=== PATIENT | female | born 1945 | race Hispanic/Latino ===

== ENCOUNTER → 2022-08-22 | Outpatient (CLI) | payer MEDICAID, SELFPAY ==
[2022-08-22 12:35] LABS: Anion Gap 6 (5-15); BUN 19 mg/dL (7-18); BUN/Creat Ratio 12.7 RATIO (10-20); Chloride 106 mmol/L (98-107); EST Glomerular Filtration Rate 36 mL/min (>60); Est Glom Filt Rate - Afr Amer 44 mL/min (>60); Glucose 88 mg/dL (74-106); Potassium 4.2 mmol/L (3.5-5.1); Sodium Level 140 mmol/L (136-145)
[2022-08-22 13:38] LABS: AST(SGOT) 9 U/L (15-37); Alanine Aminotransfer ALT/SGPT 13 U/L (13-56); Albumin, Serum 3.6 g/dL (3.2-5.0); Alkaline Phosphatase 93 U/L (45-117); Bilirubin, Direct 0.14 mg/dL (0.00-0.30); Globulin 3.4 g/dL (2.2-4.2)
== END | disposition home or self-care (01) ==
DX: Z00.00 Encounter for general adult medical examination without abnormal findings (principal); M17.0 Bilateral primary osteoarthritis of knee
CPT/HCPCS: 36415; 80048; 80076

== ENCOUNTER 2022-09-11 17:00 | Outpatient (RCR) | payer MEDICAID, SELFPAY ==
--- NOTE | 2022-08-14 16:37 | HP.PTEVAL_ITS ---
Patient's Visit Information HILARY JIMENEZ is a 77 year old F referred to Physical Therapy by STEPHAN Lynch with a diagnosis of Bilateral Knee OA. Date of Evaluation: 08/14/22 Physical Therapist: Lisbet Vásquez DPT - Visit Plan Frequency: 2x /Week Duration: 4 Weeks Plan: Sri Lankan Speaking- Focus on LE ROM, strength and functional mobility. HEP Given IE: Quad set, SLR, heel slide, bolster extn stretch - Subjective Patient came with her son who translates- she went to see ortho and she is bone on bone on both knees with OA. She is better after the Meloxicam- which took away the swelling and pain. This has had knee pain for years but the last two have gotten worse. The left is worse than the right. Pain is located in the anterior knee and will radiate to the posterior portion. Does radiate a little ways but not all the way to the hip and ankle. She describes the pain in the knee as 4/10. The pain is sharp and it feels hot. She had injections in [facility] which only lasted 2-3 days. The pills have worked a lot better. She always has some pain. She is more sedentary due to her knee pain- she ambulates through the home. She is able to get up/down the stairs okay but has to use the rails. She uses the cane most of the time but will forget it every now and then. Sleep: it hurts sometimes at night- but is much better now. They have talked about knee replacement on both sides- she goes back Sep 16 to see the MD. PMHx/Meds: no changes since she saw ortho 07/30/22. - Objective Posture: FH, RS- unable to correct. Gait: antalgic- decreased weight bearing on the left LE- straight cane- slow ismael. Observation: varus of the right LE. SLS: weight shift only bilateral. HR/TR: able but does require UE A. ROM: Right: 30-90 degrees Left: 20-90 degrees. Strength: Ankle: 5/5, Knee: 4/5, Hip: 4-/5. Flex: HS: severe, Quad: severe - Balance/Special Test Scores Lower Extremity Functional Score: 29 - Goals Goal 1:: Patient will be I with HEP and progression Goal Time Frame: 4-6 Weeks Goal 2:: Patient will ambulate >300 feet with a normalized gait pattern Goal Time Frame: 4-6 Weeks Goal 3:: Patient will asc/desc 8 stairs recip with 1 HR Goal Time Frame: 4-6 Weeks Goal 4:: Patient will report 80% improvement Goal Time Frame: 4-6 Weeks - Rehabilitation Potential Physical Therapy Diagnosis: Patient presents with hypomobility- she has decreased LE ROM, LE and core strength/stabilization, flex, proprioception leading to abnormal gait and inability to perform ADL's. Rehabilitation Potential: Good - Anticipated Interventions Patient/Client Instruction: Educate patient on: Benefits of Fitness Program Therapeutic Exercise to Include: Strength training, Endurance training, Balance training, Coordination, Agility training, Body mechanics, Postural training, Flexibilty training, Gait and locomotor training, Neuromotor development, Dynamic Lumbar Stabilization, Scapular Strength/Stabilization For the Purpose of:: To improve muscle performance and motor function TENS: Yes Cryotherapy (ice pack, ice massage): Yes Thermo therapy (hot pack): Yes Ultrasound (thermal/non thermal): Yes Thank you for the opportunity to evaluate your patient. For Medicare and Medicare HMO plans, please review the plan of care and approve it. It will need to be FAXED BACK to us at [phone] for Medicare purposes. For Medicare only, by signing this I certify the plan of care. Please let me know if there are questions or concerns regarding this plan of care. Physician Signature: Date:
--- NOTE | 2022-09-11 17:22 | HP.PTDCSUM ---
It has been my pleasure to treat HILARY HUTCHINS referred by STEPHAN Lynch, with the diagnosis of Bilateral Knee OA for a total of 9 visit(s). Discharge Date: Please see the following information for a summary of their discharge status. Subjective: Son reports that she is moving more-she still has a lot of pains in the left leg- more on the anterior knee on the medial side of the knee. They go back to see Dr. Og on Thursday. She is able to stand longer and is walking instead of using the w/c. L knee Pain Intensity (Out of 10): 8 R knee Pain Intensity (Out of 10): 5 % Improvement: 80 Objective/Function: Posture: FH, RS- unable to correct. Gait: antalgic- decreased weight bearing on the left LE- straight cane- improved ismael. Observation: varus of the right LE. SLS: weight shift only bilateral. HR/TR: able but does require UE A. ROM: Right: 30-115 degrees Left: 20-90 degrees. Strength: Ankle: 5/5, Knee: 4+/5, Hip: 4/5. Flex: HS: severe, Quad: severe Goal 1:: Patient will be I with HEP and progression Goal Progress: Goal Met Goal 2:: Patient will ambulate >300 feet with a normalized gait pattern Goal Progress: Progressing Goal 3:: Patient will asc/desc 8 stairs recip with 1 HR Goal Progress: Progressing Goal 4:: Patient will report 80% improvement Goal Progress: Progressing Plan: 09/11: Discharge- return to MD for further evaluation. Austrian Speaking (son translates) - Focus on LE ROM, strength and functional mobility If there are questions or concerns regarding this patient's physical therapy, please feel free to call me at [phone]. Thank you for the referral of this patient. Sincerely, Lisbet Vásquez, DONNELLT Balance/Gait/Functional tests - Balance/Special Test Scores Lower Extremity Functional Score: 22
== END 2022-09-11 19:00 | disposition home or self-care (01) ==
LOC: PT 17:00
DX: M17.0 Bilateral primary osteoarthritis of knee (principal)
CPT/HCPCS: 97110; 97162; 97164

== ENCOUNTER → 2022-10-21 | Outpatient (CLI) | payer MEDICAID, SELFPAY ==
--- NOTE | 2022-10-21 16:44 | CT_ITS ---
EXAM: CT LEFT LOWER EXTREMITY WITHOUT INTRAVENOUS CONTRAST CLINICAL INDICATION: templating for left TKA TECHNIQUE: Helically acquired images were obtained of the left lower extremity without intravenous contrast. 2-D reformats were performed by the technologist. CTDIvol = ( 18.09 ) mGy, DLP = ( 1489.93 ) mGycm This CT exam was performed using one or more of the following dose reduction techniques: automated exposure control, adjustment of the mA and/or kV according to patient size, and/or use of iterative reconstruction technique. This report was created using [employer] report [employer] technology. COMPARISON: None. FINDINGS: BONES/JOINTS: Degenerative changes about the symphysis, SI joints, and left hip joint. Tricompartmental osteoarthrosis of the knee, worse/severe at the medial femorotibial compartment. No acute or healing fracture or malalignment. No unusual lytic or sclerotic lesions of bone. Small suprapatellar joint effusion of the knee. Prominent plantar and posterior calcaneal enthesophytes. No significant tibiotalar joint effusion. SOFT TISSUES: No unusual or suspicious soft tissue mass. No soft tissue swelling or gas. No radiopaque foreign body. CT/Extremity Lower without Contra IMPRESSION: 1. Preoperative planning study or left total knee arthroplasty. 2. No acute osseous abnormalities or malalignment. 3. Tricompartmental osteoarthrosis of the knee, worse/severe at the medial femorotibial compartment. 4. Ancillary findings as above. Electronically Signed: Ronald Watkins MD at 2:21 EST ,
== END | disposition home or self-care (01) ==
LOC: CT 16:42
PROVIDERS: Referring Provider Orthopaedic Surgery; Visit Provider Orthopaedic Surgery
DX: M17.10 Unilateral primary osteoarthritis, unspecified knee (principal)
CPT/HCPCS: 73700

== ENCOUNTER → 2022-11-12 | Outpatient (CLI) | payer MEDICAID, SELFPAY ==
[2022-11-12 13:25] LABS: Anion Gap 9 (5-15); BUN 26 mg/dL (7-18); BUN/Creat Ratio 20.2 RATIO (10-20); Calcium,Total 9.4 mg/dL (8.5-10.1); Chloride 103 mmol/L (98-107); Cholesterol 221 mg/dL (200); Creatinine, Serum 1.29 mg/dL (0.55-1.02); EST Glomerular Filtration Rate 43 mL/min (>60); Est Glom Filt Rate - Afr Amer 52 mL/min (>60); Glucose 88 mg/dL (74-106); High Density Lipoprotein 49 mg/dL; Potassium 4.2 mmol/L (3.5-5.1); Sodium Level 141 mmol/L (136-145); Triglycerides 159 mg/dL; Very Low Density Lipoprotein 32 mg/dL (5-40)
== END | disposition home or self-care (01) ==
LOC: MFPLAB 11:41
PROVIDERS: PCP Nurse Practitioner Family; Visit Provider Family Medicine
DX: Z01.818 Encounter for other preprocedural examination (principal); I10 Essential (primary) hypertension
CPT/HCPCS: 36415; 80048; 80061

== ENCOUNTER 2022-11-18 08:54 | Inpatient (IN) | payer MEDICAID, SELFPAY ==
--- NOTE | 2022-10-31 07:06 | EKG12_ITS ---
Test Reason : PRE-OP Blood Pressure : / mmHG Vent. Rate : 077 BPM Atrial Rate : 076 BPM P-R Int : 000 ms QRS Dur : 088 ms QT Int : 400 ms P-R-T Axes : 000 054 088 degrees QTc Int : 452 ms Sinus rhythm Nonspecific ST and T wave abnormality Abnormal ECG Confirmed by DARYL GONZALEZ, ROSA MARIA ([id number]), newspaper or periodical editor MAXIMILIAN PAULA ([id number]) on 11/03/2022 10:52:53 AM Referred By: Hugo Esquivel Confirmed By:CARLOS BRITO MD
[2022-10-31 09:02] LABS: Absolute Lymphocyte Count 1.73 X10^3/uL (0.83-4.51); Absolute Neutrophil Count 2.7 X10^3/uL (2.0-7.7); Basophil# 0.05 X10^3/uL; Basophil% 0.9 % (0-1); Eosinophil# 0.38 X10^3/uL; Eosinophils% 7.1 % (0-5); Hematocrit 40.7 % (37-47); Hemoglobin 13.1 g/dL (12.0-15.0); Lymphocyte # 1.73 X10^3/ul (0.83-4.51); Lymphocyte % 32.5 % (19-41); Mean Corp Hgb Conc 32.2 g/dL (32-36); Mean Corpuscular Hgb 29.4 pg (27.0-32.0); Mean Corpuscular Volume 91.5 fL (81-99); Mean Platelet Vol. 10.6 fl (6.2-12.0); Monocyte# 0.49 X10^3/uL; Monocyte% 9.2 % (0-10); NRBC Flagged by Analyzer 0 % (0-5); Neutrophil # 2.66 X10^3/uL (2.7-7.7); Neutrophil % 49.9 % (47-70); Platelet Count 233 K/mm3 (150-450); RBC Distribution Width CV 12.7 % (11.6-14.6); RBC Distribution Width SD 42.2 fl (35.1-43.9); Red Blood Count 4.45 M/mm3 (4.2-5.4); White Blood Count 5.3 K/mm3 (4.4-11.0)
[2022-10-31 09:35] LABS: Anion Gap 3 (5-15); BUN 29 mg/dL (7-18); BUN/Creat Ratio 21.5 RATIO (10-20); Calcium,Total 9.8 mg/dL (8.5-10.1); Chloride 105 mmol/L (98-107); Creatinine, Serum 1.35 mg/dL (0.55-1.02); EST Glomerular Filtration Rate 41 mL/min (>60); Est Glom Filt Rate - Afr Amer 49 mL/min (>60); Glucose 94 mg/dL (74-106); Magnesium 2.2 mg/dL (1.6-2.6); Potassium 3.8 mmol/L (3.5-5.1); Sodium Level 140 mmol/L (136-145)
[2022-10-31 09:36] LABS: Hemoglobin A1c 5.3 % (3.8-5.6)
[2022-10-31 09:38] LABS: Prothrombin Time (Protime)PT. 13.2 SECONDS (11.7-14.9)
[2022-10-31 09:39] LABS: Partial Thromboplast Time 33.3 Seconds (24.1-36.2)
[2022-11-01 10:22] LABS: Fructosamine 275 umol/L (0-285)
[2022-11-18] VITALS (11 sets, daily range): BP systolic 128–159; BP diastolic 68–93; PULSE 70–80; RESP 15–18; TEMP 35.8–36.6; O2SAT 100; BMI 19.2
[2022-11-18] MEDS: Gabapentin 600 MG Tablet PO (10:00)
[2022-11-18] MEDS: Celecoxib 200 MG Capsule 400 MG PO (10:00)
[2022-11-18] MEDS: Acetaminophen 500 MG Tablet 1000 MG PO (10:00)
[2022-11-18] MEDS: Scopolamine 1mg/72hr Patch 1 PATCH TD (10:00)
[2022-11-18 10:41] LABS: Bedside Glucose 84 mg/dL (74-106)
--- NOTE | 2022-11-18 11:16 | HP.PCM_ITS ---
History and Physical Date of Admission: 11/18/22 [facility] [address] [place] [address] OFFICE VISIT Date of Service:? 09/15/22 MR#: [id number] Acct: [id number] Name:HILARY WISDOM Rep #: [id number] : 1945 ? ? Provider: Dr. Hugo Esquivel, Age/Sex:? 77/F ? ? [place] [facility] [place] Status: Signed Intake Intake Visit Reasons:?BL Knees Chief Complaint: bilateral knee pain Allergies No Known Allergies Allergy (Unverified 07/30/22 14:17) Medications metformin 500 mg tablet 500 mg PO DAILY 07/25/22 [History Confirmed 09/15/22] valsartan 40 mg tablet 40 mg PO BID 07/30/22 [History Confirmed 09/15/22] PFSH Medical History? Hypertension Weight loss HPI BL Knees Details: Parts of this documentation were recorded by a scribe, this documentation accurately reflects the service provided and the decisions made by me, Dr. Hugo Esquivel, DO 09/15/22 1015. HILARY HUTCHINS is a 77 year old F here today for F/U on?bilateral knee pain. She speaks no Swiss and her son is serving as her conference interpreter and giving her his tory. She did complete PT for her BL knee pain which was helpful with the pain. Left knee is worse than the right knee. Denies any past surgery of the knees. She did have a left knee steroid injection over 1 year ago in [facility] which was not helpful at the time. She has increased knee pain over the anterior knees. She did have some pain relief from the Meloxicam but she was unable to keep taking this d/t her kidney function. She does use a cane for ambulation. Denies any hx of vascular or heart issues in the past. Denies any hx of ulcers or infection of the legs/feet. Ortho Exam General General: Yes no acute distress Neurologic: Yes alert and Yes oriented x3 Psychologic: Yes reasonable and appropriate Right Knee Patella Translation: 1 Left Knee Skin/Wound: Yes CDI, No ecchymosis, No erythema and No swelling Homans Sign: No Knee ROM: No ROM-Extension -20 to 0 (lacking 40) and No ROM-Flexion 0-140 (100) Examination: Yes med jt line tenderness Stability: NML: Anterior Drawer, NML: Posterior Drawer, NML: Valgus 30 and NML: Varus 30 Apprehension with Lateral Translation: No Patella Translation: 1 Patella Grind: Yes KNEE: 1/4 dorsalis pedis and 1/4 posterior tibial loss of hair from mid leg down 1inch scar lateral to patellar tendon no joint effusion Supplemental Info 07/30/2022 x-ray left knee: advanced medial knee arthrosis [id number] subchondral cystic changes joint space collapse and bone spurs moderate patellofemoral arthrosis 07/30/2022 x-ray right knee: Moderate to severe knee arthrosis worse medial compartment Coding Level of Care Code Off vis,est,level 3 Diagnoses Bilateral primary osteoarthritis of knee? M17.0 Assessment and Plan Assessment and Plan (1) Bilateral primary osteoarthritis of knee: ?Status:?Acute Plan Obtained X-rays of patient's left and right knee. Personally reviewed x-rays. There is no obvious fracture, dislocation, or lucency noted. Patient educated that she has osteoarthritis of the bilateral knees. Treatment options for arthritis of the knees are do nothing or bracing or steroid injection or viscosupplementation or TKA.?Risks, benefits and alternatives of surgery reviewed including but not limited to bleeding, infection, nerve, artery and/or tissue damage, fracture, VTE, mechanical feel of the knee, continued pain, stiffness and expected post-operative course. Increased risk to foot drop d/t her flexion contracture. Encouraged to gain as much ROM prior to surgery. Will need to check her A1C to assure this is ok and she will need medial clearance. She would need a CT scan prior to the surgery. Her son is translating for the patient as she doesn't speak Swiss. Recommended 2 night stay after surgery if this is approved by insurance. She will need to establish with a PCP so she can get medial clearance. Lisbet King CNP is listed on her insurance card as her PCP. Encouraged them to reach out to schedule a visit. She wishes to proceed with left TKA. She will have the IOVERA treatment if this is covered. Follow up 2 weeks post op or sooner if pain, swelling, numbness or associated symptoms, or concerns develop.? All questions answered. Patient in agreement of plan. plan for full admit November 04 2022.? She is 77 years old does have a communication barrier and is diabetic. 09/15/22 1617 <Electronically signed by Hugo Esquivel DO> Date Hugo Esquivel DO Cosigner Signature: Date (if applicable) ? CC: ? ~I have examined the patient and the H&P has been reviewed. There are no clinical changes since date of exam.
[2022-11-18] MEDS: Cefazolin 2 GM in 0.9% Normal Saline 100 ML IV (11:19)
[2022-11-18] MEDS: TXA 1000mg in NS100 100ml (IVPB at Incision) 660 MG IV (11:29)
--- NOTE | 2022-11-18 11:30 | KNEE_PTH ---
PATIENT: HILARY WATSON LOC: MS3 U#:[id number] AGE/SX: 77/F ROOM: CA305 RE11/18/[address]: Dr. Hugo Esquivel DO : 1945 BED: 1 DIS: 11/19/2022 SPEC #: [id number] RECD: 11/18/22 15:33 STATUS: EDUIN SUBRAMANIANJasiel #: [id number] REZA: 11/18/22 11:[address]: Hugo Esquivel DEPT: SURGICAL PATHOLOGY RECD BY: Glenn Godwin ENTERED: 11/19/22 08:14 SP TYPE: TOTAL KNEE OTHR DR: Dr. Johann Cannon, MD Lisbet King, LOAD HAUL DUMP OPERATOR-C Tissues: Knee, NOS Procedures: Decalcification bone/plaque Surgery Specimen Level IV HEADER OPERATION: ERAS, total knee replacement robotic arm assist PRE-OP DIAGNOSIS: Osteoarthritis of left knee TISSUE SUBMITTED: Left femoral and tibial bone MICROSCOPIC DIAGNOSIS Bone and tissue of left knee, total knee resection: Severe degenerative joint disease. AM:joaquin 11/24/2022 MICROSCOPIC DESCRIPTION Slides are reviewed. GROSS DESCRIPTION Received is one container designated left femoral and tibial bone. The specimen consists of multiple fragments of cruz-yellow bone measuring in aggregate 10 x 10 x 3 cm. No soft tissue is identified. A number of bony fragments contain articular surfaces consistent with tibial plateau and femoral condyle and displaying prominent osteophyte formation, eburnation, and bone erosion. Prevention Specialist sections are submitted in one cassette after decalcification. / SJ:joaquin 11/19/2022 TC:5 CPT: 10494, 74457
[2022-11-18] MEDS: dexAMETHasone 10 MG/ML Vial IV (11:35)
[2022-11-18] MEDS: TXA 1000mg in NS100 100ml (IVPB at Closure) 660 MG IV (11:54)
--- NOTE | 2022-11-18 14:00 | RAD_ITS ---
STUDY: X-RAY - LEFT KNEE REASON FOR EXAM: Female, 77 years old. Post op -- AP and Lateral xray of operative knee in PACU TECHNIQUE: 2 view(s) of the knee. COMPARISON: Comparison is made with prior study dated 07/30/2022. FINDINGS: Normal visualized distal femur. Normal visualized proximal tibia and fibula. Normal proximal tibiofibular articulation. The patient is status post total knee replacement. There is good alignment. Postoperative soft tissue changes. RAD/Knee 1 or 2 Views IMPRESSION: Status post total knee replacement. There is good alignment. Postoperative soft tissue changes. Electronically Signed: Som Artis MD at 15:26 EST ,
--- NOTE | 2022-11-18 14:03 | PCM.OP.BLANK ---
Operative Report Date of Procedure: 11/18/22 Preoperative diagnosis: Left knee DJD Postoperative diagnosis: Same Procedure: Left total knee arthroplasty CT guided Robotic Assisted Implant: Theodora triathlon cemented, femoral component size 3, tibial baseplate size 3, asymmetric patella size 32, polyethylene X3 size 9 CS Anesthesia: Spinal with adductor canal block Tourniquet time:32 Minutes total it was up until femoral array was placed and then let down and then was reinflated during cementing at 275 mmHg Complications: None Condition: Stable to PACU Estimated blood loss: 200 cc Indication for procedure: This is a 77-year-old female with long standing degenerative joint disease of the knee with severe flexion contracture of 30 degrees who has failed conservative treatment and wished to proceed with elective total knee arthroplasty. Risk benefits and alternatives were reviewed including; risk of bleeding, infection, nerve artery and tissue damage, continued pain, postoperative stiffness, venous thromboembolism, need for postoperative rehabilitation, mechanical feel to the knee, and expected postoperative course. The pre- operative CT and templating was performed with component sizing. Procedure: The patient was met in the preoperative holding area. The operative extremity was identified by both patient and physician and was marked. Patient was met by anesthesia. An adductor canal block was placed by anesthesia postoperatively the patient was brought back to the operating room on a wheeled cart and transferred to the operating table in the supine position. Anesthesia was started. A well-padded tourniquet was placed on the operative extremity. The patient was prepped and draped in the usual sterile fashion. A timeout was called to ensure the proper patient procedure and extremity were being contemplated. An esmarch was used to exsanguinate the extremity. The tourniquet was inflated. A 10 blade scalpel was used to make a midline incision down through the skin and subcutaneous tissue. Skin retractors placed. Bovie and Aquamantis were used to perform meticulous hemostasis. full-thickness flaps were elevated medial and lateral along the joint capsule. A deep blade scalpel was used to perform a medial parapatellar arthrotomy. The knee was brought to full extension. A bovie was used to release the soft tissues off the most proximal aspect of the medial tibial plateau, a three-quarter inch curved osteotome was also used in this process. The infrapatellar fat pad was excised. The suprapatellar fat pad was excised partially anteriorolateraly and portion the anterioromedial pad was elevated from the femur. At this point our intra-articular femoral array was placed at a 45 degree angle proximal and posterior to the medial epicondyle. femoral checkpoint was placed at this time. Our tibial array was placed greater than 1 hands breath below the incision at a 20 degree angle stab incisions were made with a 15 blade scalpel and pins were placed and attached to the tibial array , tibial checkpoint was placed in the proximal tibial metaphysis. Tourniquet was let down. At this point registration ruvalcaba were taken throughout the knee . Once the knee was registered we then tensioned the medial and lateral ligaments in extension and 90 degrees of flexion. We then used these numbers to adjust our components within parameters to balance the knee in both flexion and extension once this was done on our monitor we then proceeded with using the robotic arm to make our tibial plateau cut, anterior and posterior chamfer and distal femur cuts. we removed the cut fragments with the use of a bovie and Nehemias, we did use a lamina enrobing machine feeder to insure we visualized and removed all posterior osteophytes and at this time also used the Aquamantis on the posterior joint capsule. we then trialed and achieved the desired plan with a well-balanced knee. we used the green probe to traci the corresponding tibial rotation based on our CT template. Lug holes were drilled in the femur the tibia preparation was completed with the appropriate sized base plate pinned based on previous rotation traci. An appropriate sized fin punch was used on the tibia and the patella was prepared by first using a caliper to ensure sufficient bone stock and a patellar reamer to remove the desired amount of bone. lug holes drilled for an asymmetric poly. We then brought the knee through range of motion with excellent patellar tracking. We thoroughly irrigated the knee. Trial components were removed a posterior capsular injection was preformed with our standard cocktail. In addition the aqua Mantis was also used to aid in hemostasis. Betadine rinse was allowed to sit and washed out completely. Components were cemented into place excess cement was removed with G[place]neur elevator. Aricept rinse was then used followed by several more liters of irrigation after it was allowed to sit. The joint capsule was closed with #1 Ethibond [id number] followed by Vicryl in the subcutaneous tissues with aaron in the skin. Arrays and checkpoints were removed prior to closure all counts were correct stab incisions were closed with a staple standard dressing in the form of Mepilex AG for the main incision and a small Mepilex over the pin holes. Thigh-high ROSALES hose applied over top of dressing. Patient tolerated the procedure well and was directed to PACU in stable condition . There were no intraoperative complications.
[2022-11-18 15:21] LABS: Bedside Glucose 121 mg/dL (74-106)
[2022-11-18] MEDS: Lactated Ringers 1,000 ML 125 ML IV (15:24)
--- NOTE | 2022-11-18 16:13 | CON.PCM.HO_ITS ---
Assessment & Plan Assessment/Plan (1) Osteoarthritis of left knee: (2) HTN (hypertension): PLAN: Plan #Osteoarthritis s/p left knee arthroplasty * today is POD 1 * management as per primary team orthopedics * PT.OT consult * fall precautions * incentive spirometry * #Chest pain * patient complaining of chest pain during review. Chest pain was right sided, and nonradiating. * she described it as pressure like, and said it wasnt reproducible with palpation * will get EKG and cycle troponin to ensure this is noncardiac. * #Hypertension; on valsartan #Type 2 diabetes mellitus: on metformin. ISS. Acucchecks ACHS DVT prophylaxis: as per primary team, on eliquis. Thank you for the courtesy of the consult,. We will continue to follow with you. HPI Consult Data Date of Consult: 11/18/22 HPI Narrative Reason for Consultation: medical management HPI Narrative: HILARY GELLER, is a 77 F with a past medical history as outlined was admitted to the service of orthopedics for knee replacement. 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 She had left knee CT-guided robotic assisted arthroplasty today. Today's postop day 0. Hospitalist service was consulted for medical management. Patient seen and examined. She was lying comfortably in bed. Pain was well controlled. She did complain of some nausea and retching but no vomiting. She denied any fever, chills, cough or any other symptoms. She did complain of some pain in the right side of her chest which was not pressure like and nonpleuritic. She denied any shortness of breath of breath. Pain was not reproducible with palpation. She denied any fever, any chills, any nausea vomiting or diarrhea. Review of systems otherwise negative. [facility] Medical History (Updated 11/18/22 @ 16:[address] Lindsey Mccullough MD) Diabetes Edema Hypertension Non-smoker Pain Wears glasses Wears partial dentures Weight loss Home Medications metformin 500 mg tablet 500 mg PO DAILY DIABETES 07/25/22 [History Last Taken 11/17/22 09:30] valsartan 40 mg tablet 40 mg PO DAILY BP 07/30/22 [History Last Taken 11/17/22 09:30] Allergy/AdvReac Type Severity Reaction Status Date / Time No Known Allergies Allergy Verified 11/18/22 10:17 Surgical History (Updated 10/30/22 @ 10:58 by Annie Thompson) Hx of left cataract extraction Hx of right cataract extraction Social History Smoking Status: Never smoker ROS Constitutional Constitutional: Denies chills, fatigue, fever(s), malaise or weakness Eyes Eyes: Denies change in vision ENT HEENT: Denies dysphagia, headache(s) or sore throat Cardiovascular Cardiovascular: Reports chest pain; Denies dyspnea on exertion, edema, lightheadedness, orthopnea, palpitations, rapid heart rate or syncope Respiratory/Chest Respiratory/Chest: Denies cough, productive cough or shortness of breath at rest Gastrointestinal Gastrointestinal: Denies abdominal pain, constipation, diarrhea, melena, nausea or vomiting Genitourinary Genitourinary: Denies burning urination or dysuria Musculoskeletal Musculoskeletal: Reports joint pain; Denies arthralgias Neurologic Neurologic: Denies confusion, dizziness, focal weakness, seizures or syncope Psychiatric Psychiatric: Denies anxiety or depression Hematologic/Lymphatic Hematologic/Lymphatic: Denies anemia Physical Exam Const alert, oriented x3 and no apparent distress General Appearance: cooperative HEENT normocephalic, head/scalp atraumatic, hearing grossly normal bilaterally and moist oral mucous membranes Mouth: oral and palatal mucosa normal Eyes PERRL and EOMs intact bilaterally Neck no lymphadenopathy, supple and no JVD Resp normal respiratory effort, no retractions and no use of accessory muscles Cardio regular rate, regular rhythm, S1 normal heart sound, S2 normal heart sound and no murmurs GI normal to inspection, nondistended, normoactive bowel sounds, soft to palpation and non-tender Extremity Extremity Narrative: left knee wrapped has intact dressing. Neuro oriented x3, CN's II-XII intact bilaterally, moves all extremities and no focal motor deficits Sensorium / Orientation: awake and alert Motor Exam: strength 5/5 throughout Psych affect normal Lab / Micro Data Result Diagrams: 10/31/22 07:36 10/31/22 07:36 Labs: Laboratory Results - last 24 hr 11/18/22 09:45: Blood Type A POSITIVE, Antibody Screen NEGATIVE 11/18/22 09:49: POC Glucose 84 11/18/22 15:03: POC Glucose 121 H Radiology Impression Knee X-Ray 01/24/23 14:00 IMPRESSION: Status post total knee replacement. There is good alignment. Postoperative soft tissue changes. Electronically Signed: Som Artis MD at 15:26 EST , Charges/Coding Visit Charges Office Visits / Consults: [id number] IP Consult L4
[2022-11-18] MEDS: Ondansetron 4 MG/2 ML Vial IV (16:23)
[2022-11-18] MEDS: Cefazolin 1 GM/50 ML BAG IV ×2 (16:33→22:48)
[2022-11-18 17:30] LABS: Bedside Glucose 166 mg/dL (74-106)
--- NOTE | 2022-11-18 18:39 | EKG12_ITS ---
Test Reason : CHEST PAIN Blood Pressure : / mmHG Vent. Rate : 077 BPM Atrial Rate : 077 BPM P-R Int : 188 ms QRS Dur : 088 ms QT Int : 408 ms P-R-T Axes : 043 037 075 degrees QTc Int : 461 ms Normal sinus rhythm Normal ECG When compared with ECG of 31-OCT-2022 07:24, No significant change was found Confirmed by JACKELIN GONZALEZ, YOJANA ([id number]), features editor MAXIMILIAN PAULA ([id number]) on 11/19/2022 12:58:02 PM Referred By: Hugo Esquivel Confirmed By:YOJANA BENÍTEZ MD
[2022-11-18 21:00] LABS: Troponin-I HS 5 pg/mL (3.0-54.0)
[2022-11-18] MEDS: proMETHazine 25 MG/ML Syringe 12.5 MG IM (21:55)
[2022-11-18 22:57] LABS: Troponin-I HS 4 pg/mL (3.0-54.0)
[2022-11-18 23:20] LABS: Bedside Glucose 149 mg/dL (74-106)
[2022-11-19 02:37] LABS: Hematocrit 33.1 % (37-47); Hemoglobin 10.3 g/dL (12.0-15.0); Mean Corp Hgb Conc 31.1 g/dL (32-36); Mean Corpuscular Hgb 28.9 pg (27.0-32.0); Mean Corpuscular Volume 92.7 fL (81-99); Mean Platelet Vol. 11.2 fl (6.2-12.0); Platelet Count 153 K/mm3 (150-450); RBC Distribution Width CV 13.2 % (11.6-14.6); RBC Distribution Width SD 45.1 fl (35.1-43.9); Red Blood Count 3.57 M/mm3 (4.2-5.4); White Blood Count 8.2 K/mm3 (4.4-11.0)
[2022-11-19 03:00] VITALS: BP 113/65; PULSE 57; RESP 18; TEMP 35.8; O2SAT 100
[2022-11-19 03:10] LABS: Troponin-I HS 5 pg/mL (3.0-54.0)
[2022-11-19 03:21] LABS: Anion Gap 9 (5-15); BUN 19 mg/dL (7-18); BUN/Creat Ratio 13.7 RATIO (10-20); Chloride 104 mmol/L (98-107); Creatinine, Serum 1.39 mg/dL (0.55-1.02); EST Glomerular Filtration Rate 39 mL/min (>60); Est Glom Filt Rate - Afr Amer 48 mL/min (>60); Estimated Creatinine Clearance 28.93 ml/min; Glucose 136 mg/dL (74-106); Potassium 5.1 mmol/L (3.5-5.1); Sodium Level 139 mmol/L (136-145)
[2022-11-19 04:36] LABS: Bedside Glucose 122 mg/dL (74-106)
[2022-11-19] MEDS: Acetaminophen 500 MG Tablet 1000 MG PO ×2 (06:31→13:33)
[2022-11-19] MEDS: Cefazolin 1 GM/50 ML BAG IV (06:31)
[2022-11-19] MEDS: APIXABAN 2.5 MG TABLET (WCH) PO (06:31)
[2022-11-19 08:29] VITALS: BP 121/53; PULSE 66; RESP 18; TEMP 36.4; O2SAT 100
[2022-11-19] MEDS: metFORMIN HCl 500 MG Tablet PO (08:51)
[2022-11-19] MEDS: oxyCODONE 5 MG Tablet PO (08:51)
[2022-11-19] MEDS: Senna/Docusate Sodium 1 Tablet 2 TABLET PO (08:51)
[2022-11-19] MEDS: Losartan Potassium 25 MG Tablet PO (08:51)
--- NOTE | 2022-11-19 10:28 | CASEMGMT ---
Addendum entered by Vonnie Farooq 11/19/22 12:12: TC to [facility] Retail pharmacy, spoke with Andrew, there is a zero copay for guevara. Original Note: VERNON FREEMAN Assessment: Face to Face with pt for initial transition planning/care coordination assessment. VERNON FREEMAN introduced self and role at [facility], pt voices understanding and consents to assessment. Pt son translated information to patient or answered demographic info. Care providers, pharmacy, and demographics verified/updated. Admitting Dx: Left total knee robotic PCP:Lisbet King HOSPICE CLINICAL MARKETER Specialists:dale Esquivel Preferred Pharmacy: [facility] Insurance: [facility] Prescription Benefit: yes LNOK: Rahul Dwyer, son Living Arrangements: Pt lives with son, dil and grandchildren in a single story home with 2 steps to enter without a rail. Pt son reports pt is I in ADL's. Transportation: Pt son provides transportation for pt. DME/HHC/SNF: Pt has a cane, w/c, standard walker and ice machine at home. Pt has no hx of HHC or SNF stays. Pt son states no concerns with going home at time of dc. Pt has outpt therapy set up for 11/21 at [facility]. Pt son states no further concerns/needs. CM to follow. Advised pt and son to ask CM if any further question/concerns/needs arise, voices understanding. Pt Goal: Home with outpt therapy set up Plan: Home with outpt therapy set up
[2022-11-19 11:02] VITALS: O2SAT 99
--- NOTE | 2022-11-19 11:44 | PN.ORTHO_ITS ---
Subjective Subjective Patient seen and examined with son at bedside who translates for her, she is doing well her pain is controlled she denies chest pain nausea or vomiting today she admits to some light dizziness she is requesting to go home son also would like to bring her home today if at all possible. She ambulated well with physi charan therapy and no other concerns Objective Data Objective Data Vital Signs: Vital Signs Temp Pulse Resp BP Pulse Ox O2 Del Method O2 Flow Rate 97.5 F L 66 18 121/53 H 100 Room Air 2 11/19/22 08:29 11/19/22 08:29 11/19/22 08:29 11/19/22 08:29 11/19/22 08:29 11/19/22 08:35 11/19/22 03:00 Oxygen Flow Rate (L/min) 2 Oxygen Delivery Method Room Air Weight: 115 lb 8.356 oz Body Mass Index (BMI) 19.2 Intake & Output: Intake and Output for Last 24 Hours 11/17/22 11/18/22 11/19/22 23:59 23:59 23:59 Intake Total 1682 / 1682 50 / 50 Balance 1682 / 1682 50 / 50 Lab / Micro Data Result Diagrams: 11/19/22 02:25 11/19/22 02:25 Labs: Laboratory Results - last 24 hr 11/18/22 15:03: POC Glucose 121 H 11/18/22 17:11: POC Glucose 166 H 11/18/22 20:00: Troponin I High Sens 5 11/18/22 21:37: POC Glucose 149 H 11/18/22 22:20: Troponin I High Sens 4 11/19/22 02:25: WBC 8.2, RBC 3.57 L, Hgb 10.3 L, Hct 33.1 L, MCV 92.7, MCH 28.9, MCHC 31.1 L, RDW Std Deviation 45.1 H, RDW Coeff of Floyd 13.2, Plt Count 153, MPV 11.2 11/19/22 02:25: Sodium 139, Potassium 5.1, Chloride 104, Carbon Dioxide 26.0, Anion Gap 9, BUN 19 H, Creatinine 1.39 H, Estim Creat Clear Calc 28.93, Est GFR (MDRD) Af Amer 48 L, Est GFR (MDRD) Non-Af 39 L, BUN/Creatinine Ratio 13.7, Gluc ose 136 H, Calcium 9.0 11/19/22 02:25: Troponin I High Sens 5 11/19/22 04:01: POC Glucose 122 H Micro: Microbiology 10/31/22 07:36 Swab (Method) Nasal Screen MRSA/MSSA - Final Radiography Diagnostic Testing: Radiology Impression Knee X-Ray 11/18/22 14:00 IMPRESSION: Status post total knee replacement. There is good alignment. Postoperative soft tissue changes. Electronically Signed: Som Artis MD at 15:26 EST , Physical Exam Const alert, oriented x3 and no apparent distress Extremity Extremity Narrative: Left knee dressings clean dry and intact mild drainage on inferior dressing but still sealed compartments soft neurovascular intact EHL tibialis anterior g astrocsoleus intact sensation light touch palpable pedal pulse Assessment & Plan Assessment/Plan (1) S/P total knee arthroplasty: PLAN: Plan Postop day #1 left total knee arthroplasty patient is doing well pain controlled wishes to be discharged home set up for outpatient physical therapy on Thursday. DC planning home
--- NOTE | 2022-11-19 11:47 | DCINST_ITS ---
Discharge Instructions Activity Weight Bearing Status: Full weight bearing Dressing / Incision Call your doctor if you observe: Shortness of breath and Chest pain Additional Dressing/Incision Instructions:: Ice and elevate lower extremities 2 weeks while not ambulating. Ambulation is encouraged. Weight bearing as tolerated. Use assistive devise for stability. Encourage FULL knee extension and flexion 1 time EVERY time you get up and down and MULTIPLE times per day. No showering 72 hours after surgery. Begin showering postop day #3. Remove the dressing prior to shower and gently wash with warm water and antibacterial soap then pat dry and place abdominal pad (or plain gauze) and ROSALES hose over top. This is to be done daily. Do not submerge for 3 weeks. If not showering daily after the initial 72 hours then you must clean incision and change dressing daily. Do not allow animals near the incision area. Keep clean. Follow anti- coagulation recommendations as prescribed. Do not take any NSAIDs while on blood thinner. Do not take any additional narcotic pain medication other than what was prescribed on your surgery day without discussing with physician. Narcotic medication can be addictive. Do not drink alcohol while taking narc otics. Supplement narcotic prescription with acetaminophen 1000 mg 4 times a day. Start physical therapy. If you are not currently scheduled for physical therapy or you are unsure of appointment time please call office [facility] to arrange. Call Dr. Esquivel with any concerns. Follow Up Care Please Follow Up With: Hugo Esquivel DO When: 2 weeks Test Results: Test results from this visit will be discussed in further detail at your follow- up appointment, if applicable. Discharge Plan Admission Admit Date/Time: 11/18/22 08:54 Primary Reason for Your Visit: Left total knee arthroplasty Attending Provider: Hugo Esquivel Primary Care Provider: Lisbet King NP Consulting Providers: Johann Cannon Discharge Orders/Prescriptions Prescriptions: New acetaminophen [acetaminophen] 500 mg tablet 1,000 mg PO Q6H PRN Qty: 100 0RF Eliquis 2.5 mg tablet 2.5 mg PO BID Qty: 30 0RF oxycodone 5 mg tablet 5 - 10 mg PO Q4H PRN (Reason: pain) 5 Days Qty: 60 0RF Continued metformin 500 mg tablet 500 mg PO DAILY valsartan 40 mg tablet 40 mg PO DAILY Referrals / Follow Up: Fernando,Lisbet ASSISTED LIVING CARE MANAGER, ASSISTED LIVING CARE MANAGER-C [Primary Care Provider] - Disposition Disposition (needs filled in before D/C Order can be placed): Home, Self Care
--- NOTE | 2022-11-19 11:51 | PCM.DC.SUM ---
Providers Date of Admission: 11/18/22 Primary Care Physician: JOE Espinal Consultations 11/18/22 14:07 Consult: Hospitalist Routine Consulting Provider: Lindsey Mccullough Reason for Consult: Comanagement /medical management sugar control EMERGENT Consult: No MD Notified: Yes Date Notified: 11/18/22 Time Notified: 16:12 Method of Notification: Text Reason For Visit: LEFT TOTAL KNEE ROBOTIC Diagnosis Discharge Diagnosis (1) S/P total knee arthroplasty: Status: Acute Code(s): Z96.659 - Presence of unspecified artificial knee joint Plan Postop day #1 left total knee arthroplasty patient is doing well pain controlled wishes to be discharged home set up for outpatient physical therapy on Thursday. 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 Patient underwent the aformentioned procedure on the admission date without any intraoperative complications. Patient did receive pre-and postoperative antibiotics which were discontinued within 23 hours postoperatively. Patient did receive [spinal anesthesia as well as an adductor canal block postoperatively]. pain was controlled with IV and transition to p.o. pain medication Patient will be discharged home with oxycodone and will continue Tylenol as well. Patient had minimal intraoperative blood loss and 2gm tranexamic acid was administered there was no need for postoperative blood transfusion Patients vital signs remained stable. Patient was started on both mechanical and chemical DVT per prophylaxis postoperatively in the form of SCDs ROSALES hose and [Eliquis 2.5 mg twice daily for which she will continue for 2 additional weeks post hospital discharge]. thigh high rosales hose placed over top of the meplix silver dressing. This should be removed 72 hrs post operatively and showering begun daily at that time with warm water and antibacterial soap. not to submerge for 3 weeks. Patient had nausea on postop day #0 which resolved on postop day #1 she also had mild chest discomfort on postop day #0 which resolved on postop day #1 and had negative cardiac enzymes , patient and son both requesting to be discharged home on postop day #1 , dressing to be remain intact undisturbed for 72 hours then patient to change dressing daily after first dressing change. Patient will follow-up in the office in 2 weeks. No intrahospital complications. Weight / BMI Weight Weight: 115 lb 8.356 oz Body Mass Index (BMI) 19.2 ABG / Lab / Microbiology Data Result Diagrams: 11/19/22 02:25 11/19/22 02:25 Laboratory: Laboratory Results - last 24 hr 11/18/22 15:03: POC Glucose 121 H 11/18/22 17:11: POC Glucose 166 H 11/18/22 20:00: Troponin I High Sens 5 11/18/22 21:37: POC Glucose 149 H 11/18/22 22:20: Troponin I High Sens 4 11/19/22 02:25: WBC 8.2, RBC 3.57 L, Hgb 10.3 L, Hct 33.1 L, MCV 92.7, MCH 28.9, MCHC 31.1 L, RDW Std Deviation 45.1 H, RDW Coeff of Floyd 13.2, Plt Count 153, MPV 11.2 11/19/22 02:25: Sodium 139, Potassium 5.1, Chloride 104, Carbon Dioxide 26.0, Anion Gap 9, BUN 19 H, Creatinine 1.39 H, Estim Creat Clear Calc 28.93, Est GFR (MDRD) Af Amer 48 L, Est GFR (MDRD) Non-Af 39 L, BUN/Creatinine Ratio 13.7, Glucose 136 H, Calcium 9.0 11/19/22 02:25: Troponin I High Sens 5 11/19/22 04:01: POC Glucose 122 H Microbiology: Microbiology 10/31/22 07:36 Swab (Method) Nasal Screen MRSA/MSSA - Final Radiography Diagnostic Testing: Radiology Impression Knee X-Ray 11/18/22 14:00 IMPRESSION: Status post total knee replacement. There is good alignment. Postoperative soft tissue changes. Electronically Signed: Som Artis MD at 15:26 EST , D/C Instructions Weight Bearing Status: Full weight bearing Call your doctor if you observe: Shortness of breath and Chest pain Additional Dressing/Incision Instructions: Ice and elevate lower extremities 2 weeks while not ambulating. Ambulation is encouraged. Weight bearing as tolerated. Use assistive devise for stability. Encourage FULL knee extension and flexion 1 time EVERY time you get up and down and MULTIPLE times per day. No showering 72 hours after surgery. Begin showering postop day #3. Remove the dressing prior to shower and gently wash with warm water and antibacterial soap then pat dry and place abdominal pad (or plain gauze) and ROSALES hose over top. This is to be done daily. Do not submerge for 3 weeks. If not showering daily after the initial 72 hours then you must clean incision and change dressing daily. Do not allow animals near the incision area. Keep clean. Follow anti-coagulation recommendations as prescribed. Do not take any NSAIDs while on blood thinner. Do not take any additional narcotic pain medication other than what was prescribed on your surgery day without discussing with physician. Narcotic medication can be addictive. Do not drink alcohol while taking narcotics. Supplement narcotic prescription with acetaminophen 1000 mg 4 times a day. Start physical therapy. If you are not currently scheduled for physical therapy or you are unsure of appointment time please call office [facility] to arrange. Call Dr. Esquivel with any concerns. Please Follow Up With: Hugo Esquivel DO When: 2 weeks Meaningful Use Info Meaningful Use Diagnoses (Choose all that apply): None applicable Discharge Plan Admission Admit Date/Time: 11/18/22 08:54 Primary Reason for Your Visit: Left total knee arthroplasty Attending Provider: Hugo Esquivel Primary Care Provider: Lisbet King NP Consulting Providers: Johann Cannon Discharge Orders/Prescriptions Prescriptions: New acetaminophen [acetaminophen] 500 mg tablet 1,000 mg PO Q6H PRN Qty: 100 0RF Eliquis 2.5 mg tablet 2.5 mg PO BID Qty: 30 0RF oxycodone 5 mg tablet 5 - 10 mg PO Q4H PRN (Reason: pain) 5 Days Qty: 60 0RF Continued metformin 500 mg tablet 500 mg PO DAILY valsartan 40 mg tablet 40 mg PO DAILY Referrals / Follow Up: Lisbet King TAXATION CONSULTANT, TAXATION CONSULTANT-C [Primary Care Provider] - Disposition Disposition (needs filled in before D/C Order can be placed): Home, Self Care
[2022-11-19 12:15] LABS: Bedside Glucose 97 mg/dL (74-106)
--- NOTE | 2022-11-19 13:02 | PCM.PN.HOSP ---
Subjective Subjective Patient complain of right-sided chest pain nonradiating. Had left knee arthroplasty on 11/18 Objective Data Objective Data Vital Signs: Vital Signs Temp Pulse Resp BP Pulse Ox O2 Del Method O2 Flow Rate 97.5 F L 66 18 121/53 H 99 Room Air 2 11/19/22 08:29 11/19/22 08:29 11/19/22 08:29 11/19/22 08:29 11/19/22 11:02 11/19/22 11:02 11/19/22 03:00 Oxygen Flow Rate (L/min) 2 Oxygen Delivery Method Room Air Weight: 115 lb 8.356 oz Body Mass Index (BMI) 19.2 Intake & Output: Intake and Output for Last 24 Hours 11/17/22 11/18/22 11/19/22 23:59 23:59 23:59 Intake Total 1682 / 1682 50 / 50 Balance 1682 / 1682 50 / 50 Lab / Micro Data Result Diagrams: 11/19/22 02:25 11/19/22 02:25 Labs: Laboratory Results - last 24 hr 11/18/22 15:03: POC Glucose 121 H 11/18/22 17:11: POC Glucose 166 H 11/18/22 20:00: Troponin I High Sens 5 11/18/22 21:37: POC Glucose 149 H 11/18/22 22:20: Troponin I High Sens 4 11/19/22 02:25: WBC 8.2, RBC 3.57 L, Hgb 10.3 L, Hct 33.1 L, MCV 92.7, MCH 28.9, MCHC 31.1 L, RDW Std Deviation 45.1 H, RDW Coeff of Floyd 13.2, Plt Count 153, MPV 11.2 11/19/22 02:25: Sodium 139, Potassium 5.1, Chloride 104, Carbon Dioxide 26.0, Anion Gap 9, BUN 19 H, Creatinine 1.39 H, Estim Creat Clear Calc 28.93, Est GFR (MDRD) Af Amer 48 L, Est GFR (MDRD) Non-Af 39 L, BUN/Creatinine Ratio 13.7, Glucose 136 H, Calcium 9.0 11/19/22 02:25: Troponin I High Sens 5 11/19/22 04:01: POC Glucose 122 H 11/19/22 11:55: POC Glucose 97 Micro: Microbiology 10/31/22 07:36 Swab (Method) Nasal Screen MRSA/MSSA - Final Radiography Diagnostic Testing: Radiology Impression Knee X-Ray 11/18/22 14:00 IMPRESSION: Status post total knee replacement. There is good alignment. Postoperative soft tissue changes. Electronically Signed: Som Artis MD at 15:26 EST , Physical Exam Narrative Seen and examined. Patient does not have chest pain or shortness of breath. 3 serial troponins are negative. Chest pain was more right-sided. Physical exam General: Alert, Oriented x3, Cooperative HEENT: Atraumatic, PERRLA, EOMI, Normocephalic Oral: Oral mucosa moist. No Gingival or Mucosal Lesions/ Ulcerations Neck: Supple, No JVD, Negative Carotid Bruits Lungs: Air entry equal in bilateral lung bases. No crepitation/rhonchi Cardiovascular: Regular rate, Regular Rhythm, Normal S1, Normal S2, No murmurs Abdomen: Bowel Sounds Present, Soft, Non Tender, Non-Distended : No renal angle tenderness. No suprapubic tenderness. Extremities: No edema, Capillary Refill Less than 3 Seconds Skin: No rashes, No breakdown Musculoskeletal: No Tenderness to Palpation of Joints or Extremities Neurological: Cranial nerves II-XII grossly intact, DTR 2+/4 and Symmetrical, Neuro grossly intact Psych/Mental Status: Normal Affect, Appropriate. Assessment & Plan Assessment/Plan (1) Osteoarthritis of left knee: (2) HTN (hypertension): PLAN: Plan This is a 27-year-old lady admitted for elective left knee arthroplasty. The patient had chronic left knee degenerative joint disease and had CT-guided robotic assisted left total knee arthroplasty. 1. Chronic left knee DJD status post robotic assisted left knee arthroplasty. Patient has surgical dressing and ice bag. PT and OT ordered. Pain control. Continue incentive spirometry. Labs reviewed. Hemoglobin 10.3, decreased from 13.1 on 10/31. Mild acute blood loss anemia. 2. Atypical right-sided chest pain: Chest pain was right-sided, nonreproducible. 3 serial troponins are negative. Noncardiac chest pain probably due to positional musculoskeletal. 3. #Hypertension; on valsartan CKD stage 3B: Creatinine 1.39 slightly elevated from baseline Which is around 1.3. In the past also patient creatinine went up to 1.5 in July 2022. #Type 2 diabetes mellitus: on metformin. ISS. Kalia GIRALDOS. Glucose is appropriately controlled. DVT prophylaxis: as per primary team, on eliquis. Patient is medically stable for discharge. Charges/Coding Visit Charges Inpatient E&M: 71038 Subs Hosp L2
[2022-11-19 15:08] VITALS: BP 139/62; PULSE 72; RESP 18; TEMP 36.6; O2SAT 100
--- NOTE | 2022-11-19 15:39 | PHA.DC.MR ---
Pharmacy Service has performed discharge medication reconciliation for this patient. The patient's discharge medication list was reviewed for discrepancies and discrepancies were resolved. Home Medications metformin 500 mg tablet 500 mg PO DAILY DIABETES 07/25/22 valsartan 40 mg tablet 40 mg PO DAILY BP 07/30/22 acetaminophen 500 mg tablet 1,000 mg PO Q6H PRN #100 tabs 11/19/22 apixaban 2.5 mg tablet (Eliquis) 2.5 mg PO BID #30 tabs 11/19/22 oxycodone 5 mg tablet 5 - 10 mg PO Q4H PRN pain 5 days #60 tabs 11/19/22
[2022-11-19 16:51] LABS: Bedside Glucose 96 mg/dL (74-106)
== END 2022-11-19 17:54 | disposition home or self-care (01) | DRG 326 ==
LOC: ACINP 08:56 → MS3 15:12
PROVIDERS: Anesthesiology; Student in an Organized Health Care Education/Training Program; Admitting Provider Orthopaedic Surgery; PCP Nurse Practitioner Family; Referring Provider Orthopaedic Surgery; Visit Provider Orthopaedic Surgery
PROC: 0SRD0JZ Replacement of Left Knee Joint with Synthetic Substitute, Open Approach (ICD-10-PCS; CPT 27447; principal; 2022-11-18 11:00)
DX: M17.0 Bilateral primary osteoarthritis of knee (principal); E11.22 Type 2 diabetes mellitus with diabetic chronic kidney disease; N18.32 Chronic kidney disease, stage 3b; M24.576 Contracture, unspecified foot; I12.9 Hypertensive chronic kidney disease with stage 1 through stage 4 chronic kidney disease, or unspecified chronic kidney disease; R07.89 Other chest pain; Z79.84 Long term (current) use of oral hypoglycemic drugs
CPT/HCPCS: 36415; 73560; 80048; 82962; 82985; 83036; 83735; 84484; 85025; 85027; 85610; 85730; 86850; 86900; 86901; 87081; 88305; 88311; 93005; 97110; 97162; 97166; 97530; 99252; C1776; J7120; G0463; J2405; J3475; J3490

== ENCOUNTER 2023-01-01 18:00 | Outpatient (RCR) | payer MEDICAID, SELFPAY ==
--- NOTE | 2022-11-21 13:15 | HP.PTEVAL ---
Patient's Visit Information HILARY GELLER is a 77 year old F referred to Physical Therapy by Dr. Hugo Esquivel DO with a diagnosis of L TKA 11/18/22. Date of Evaluation: 11/21/22 Physical Therapist: Orion Ball PT, ATC - Visit Plan Frequency: 2-3x /Week Duration: 4-6 Weeks Plan: L knee PROM/mobs, stretching and strengthening, balance and proprio, core stab ex's, nustep, and HEP - Subjective DOS: 11/18/22. Pt does not speak persian and her son accompanies her as her senior windows engineer. Pt had a chronic period of L knee pain prior to having a L TKA performed on that date. Pt reports she has been able to ambulate some at home after having the surgery. Pt has been compliant according to her some with performing HEP as ordered by her surgeon. Pt reports her L knee is numb at this time. Pt reports she is able to sleep for approximately 4 hours at this time. Pt does not have any steps at home. Pt has not attempted stairs at this time as her son just lifts her over the 2 steps in the garage. Pt does not have a Hx of falls. Pt ambulated with a cane prior to surgery, but her hope is to ambulate without a cane in the future. Pt currently reports her pain is at 6/10 now, and increases to a 7/10 at worst. - Pain L knee Pain Intensity (Out of 10): 6 Pain Intensity Range: 7 - Objective Neuro: B LE sensation is WNL to light touch. Girth at joint line: R knee 34 cm, L knee 40 cm. ROM: R knee 0-25-115, L knee 0-32-83 degrees. MMT: R knee flex= 17, ext= 19 #F; L knee flex= 6, ext= 0 #F. Tu:39:83 - Balance/Special Test Scores Lower Extremity Functional Score: 8 - Goals Goal 1:: Decrease L knee pain x 50 % to aid with helping pt to sleep for 7-8 hours Goal Time Frame: 4-6 Weeks Goal 2:: Increase L knee ROM x 30 degrees to aid with restoring a more normalized gait pattern Goal Time Frame: 4-6 Weeks Goal 3:: Increase L knee strength x 20#F to aid with stair negotiation Goal Time Frame: 4-6 Weeks Goal 4:: I with HEP Goal Time Frame: 4-6 Weeks - Rehabilitation Potential Physical Therapy Diagnosis: Pt has L knee pain, weakness, and limited ROM secondary to L TKA Rehabilitation Potential: Good - Anticipated Interventions Patient/Client Instruction: Educate patient on: Condition, Plan of Care For the Purpose of:: To improve self management Therapeutic Exercise to Include: Strength training, Endurance training, Balance training, Flexibilty training, Gait and locomotor training, Active ROM, Dynamic Lumbar Stabilization For the Purpose of:: To decrease pain, To increase ROM, To improve muscle performance and motor function Cryotherapy (ice pack, ice massage): Yes For the Purpose of:: To decrease pain Thank you for the opportunity to evaluate your patient. For Medicare and Medicare HMO plans, please review the plan of care and approve it. It will need to be FAXED BACK to us at [phone] for Medicare purposes. For Medicare only, by signing this I certify the plan of care. Please let me know if there are questions or concerns regarding this plan of care. Physician Signature: Date:
--- NOTE | 2023-01-19 10:28 | HP.PTDCSUM ---
It has been my pleasure to treat HILARY PERALES DE referred by Dr. Hugo Esquivel DO, with the diagnosis of L TKA 11/18/22 for a total of 10 visit(s). Discharge Date: Please see the following information for a summary of their discharge status. Subjective: Pt is ready for discharge. L knee Pain Intensity (Out of 10): 3 % Improvement: 70 Objective/Function: L knee pain ranges from 3-6/10. L knee ROM: 0-30-110. L knee MMT: flex= 11, ext= 12 #F. Tu.58 Goal 1:: Decrease L knee pain x 50 % to aid with helping pt to sleep for 7-8 hours Goal Progress: Goal Met Goal 2:: Increase L knee ROM x 30 degrees to aid with restoring a more normalized gait pattern Goal Progress: Goal Met Goal 3:: Increase L knee strength x 20#F to aid with stair negotiation Goal Progress: Goal Met Goal 4:: I with [facility] Goal Progress: Goal Met Plan: Discharge to [facility] If there are questions or concerns regarding this patient's physical therapy, please feel free to call me at [phone]. Thank you for the referral of this patient. Sincerely, Orion Ball, PT, ATC Balance/Gait/Functional tests - Balance/Special Test Scores Lower Extremity Functional Score: 43
== END 2023-01-01 19:00 | disposition home or self-care (01) ==
LOC: PT 18:00
PROVIDERS: PCP Nurse Practitioner Family; Referring Provider Orthopaedic Surgery; Visit Provider Orthopaedic Surgery
DX: M17.0 Bilateral primary osteoarthritis of knee (principal)
CPT/HCPCS: 97110; 97140; 97161; 97164

== ENCOUNTER → 2023-01-08 | Outpatient (CLI) | payer MEDICAID, SELFPAY ==
[2023-01-08 18:02] LABS: Absolute Lymphocyte Count 2.07 X10^3/uL (0.83-4.51); Absolute Neutrophil Count 2.9 X10^3/uL (2.0-7.7); Basophil# 0.07 X10^3/uL; Basophil% 1.2 % (0-1); Eosinophil# 0.44 X10^3/uL; Eosinophils% 7.4 % (0-5); Hematocrit 36.7 % (37-47); Hemoglobin 11.4 g/dL (12.0-15.0); Lymphocyte # 2.07 X10^3/ul (0.83-4.51); Mean Corp Hgb Conc 31.1 g/dL (32-36); Mean Corpuscular Hgb 28.9 pg (27.0-32.0); Mean Corpuscular Volume 93.1 fL (81-99); Mean Platelet Vol. 11.2 fl (6.2-12.0); Monocyte# 0.45 X10^3/uL; Monocyte% 7.6 % (0-10); NRBC Flagged by Analyzer 0 % (0-5); Neutrophil # 2.87 X10^3/uL (2.7-7.7); Neutrophil % 48.6 % (47-70); Platelet Count 241 K/mm3 (150-450); RBC Distribution Width CV 13.6 % (11.6-14.6); RBC Distribution Width SD 46.4 fl (35.1-43.9); Red Blood Count 3.94 M/mm3 (4.2-5.4); White Blood Count 5.9 K/mm3 (4.4-11.0)
[2023-01-08 18:22] LABS: Vitamin B12 > 2000 pg/mL (211-911); Vitamin D,25 Hydroxy 28.6 ng/mL
[2023-01-08 18:25] LABS: ALB/GLOB Ratio 1.1 RATIO (0.9-2.4); AST(SGOT) 9 U/L (15-37); Alanine Aminotransfer ALT/SGPT 11 U/L (13-56); Albumin, Serum 3.8 g/dL (3.2-5.0); Alkaline Phosphatase 78 U/L (45-117); Anion Gap 9 (5-15); BUN 27 mg/dL (7-18); BUN/Creat Ratio 23.5 RATIO (10-20); Calcium,Total 9.4 mg/dL (8.5-10.1); Chloride 103 mmol/L (98-107); Creatinine, Serum 1.15 mg/dL (0.55-1.02); EST Glomerular Filtration Rate 49 mL/min (>60); Est Glom Filt Rate - Afr Amer 59 mL/min (>60); Ferritin 269 ng/mL (8-252); Globulin 3.6 g/dL (2.2-4.2); Glucose 93 mg/dL (74-106); Potassium 4.2 mmol/L (3.5-5.1); Protein, Total 7.4 g/dL (6.4-8.2); Sodium Level 137 mmol/L (136-145); Thyroid Stim Hormone (TSH) 0.68 uIU/mL (0.358-3.74)
== END | disposition home or self-care (01) ==
LOC: MFPLAB 14:50
PROVIDERS: PCP Family Medicine; Referring Provider Family Medicine; Visit Provider Family Medicine
DX: R35.1 Nocturia (principal); R53.83 Other fatigue
CPT/HCPCS: 36415; 80053; 82306; 82607; 82728; 84443; 85025; 87077; 87086; 87088; 87186

== ENCOUNTER → 2023-01-20 | Outpatient (CLI) | payer MEDICAID, SELFPAY ==
[2023-01-20 12:17] LABS: Absolute Lymphocyte Count 1.36 X10^3/uL (0.83-4.51); Absolute Neutrophil Count 2.2 X10^3/uL (2.0-7.7); Basophil# 0.06 X10^3/uL; Basophil% 1.3 % (0-1); Eosinophil# 0.46 X10^3/uL; Eosinophils% 10.1 % (0-5); Hematocrit 36.3 % (37-47); Hemoglobin 11.3 g/dL (12.0-15.0); Lymphocyte # 1.36 X10^3/ul (0.83-4.51); Mean Corp Hgb Conc 31.1 g/dL (32-36); Mean Corpuscular Volume 93.3 fL (81-99); Mean Platelet Vol. 11.8 fl (6.2-12.0); Monocyte# 0.44 X10^3/uL; Monocyte% 9.7 % (0-10); NRBC Flagged by Analyzer 0 % (0-5); Neutrophil # 2.21 X10^3/uL (2.7-7.7); Neutrophil % 48.7 % (47-70); Platelet Count 189 K/mm3 (150-450); RBC Distribution Width CV 13.9 % (11.6-14.6); RBC Distribution Width SD 47.7 fl (35.1-43.9); Red Blood Count 3.89 M/mm3 (4.2-5.4); White Blood Count 4.5 K/mm3 (4.4-11.0)
== END | disposition home or self-care (01) ==
LOC: MFPLAB 10:10
PROVIDERS: PCP Family Medicine; Referring Provider Family Medicine; Visit Provider Family Medicine
DX: D64.9 Anemia, unspecified (principal)
CPT/HCPCS: 36415; 85025

== ENCOUNTER → 2023-02-13 | Outpatient (CLI) | payer MEDICAID, SELFPAY ==
--- NOTE | 2023-02-13 17:46 | CT_ITS ---
CT RIGHT LOWER EXTREMITY WITH 3-D IMAGING CLINICAL INDICATION: TEMPLATING FOR RIGHT TKA TECHNIQUE: Axial CT images of the RIGHT lower extremity was performed IV contrast material. Coronal and sagittal reformats were provided. RADIATION DOSAGE (If Supplied By Facility): CTDIvol = ( 18.76 ) mGy, DLP = ( 1112.22 ) mGycm COMPARISON: FINDINGS: Bones: Osseous structures are normal without evidence of fracture or dislocation. No lytic or blastic osseous masses. There is narrowing of the medial compartment of the joint with mild subchondral cystic changes in the medial femoral and tibial condyles in association with mild osteophytic spurring. Mild narrowing of the lateral compartment of the patellofemoral joint. Soft Tissues: The deep soft tissue structures are unremarkable. The superficial soft tissues are unremarkable without evidence of edema, hematoma, or foreign body. CT/Extremity Lower without Contra IMPRESSION: Moderate osteoarthritic changes. No acute fracture or other significant bony pathology Electronically Signed: Gerardo Sutton MD at 21:21 EDT ,
== END | disposition home or self-care (01) ==
LOC: CT 17:41
PROVIDERS: PCP Family Medicine; Referring Provider Orthopaedic Surgery; Visit Provider Orthopaedic Surgery
DX: Z96.651 Presence of right artificial knee joint (principal)
CPT/HCPCS: 73700

== ENCOUNTER 2023-02-17 14:03 | Observation (INO) | payer MEDICAID, SELFPAY ==
[2023-02-07 10:39] LABS: Absolute Lymphocyte Count 1.23 X10^3/uL (0.83-4.51); Absolute Neutrophil Count 3.1 X10^3/uL (2.0-7.7); Basophil# 0.05 X10^3/uL; Eosinophil# 0.31 X10^3/uL; Eosinophils% 6.2 % (0-5); Hemoglobin 11.8 g/dL (12.0-15.0); Lymphocyte # 1.23 X10^3/ul (0.83-4.51); Lymphocyte % 24.5 % (19-41); Mean Corp Hgb Conc 31.1 g/dL (32-36); Mean Corpuscular Hgb 28.6 pg (27.0-32.0); Mean Corpuscular Volume 92.2 fL (81-99); Mean Platelet Vol. 10.7 fl (6.2-12.0); Monocyte# 0.29 X10^3/uL; Monocyte% 5.8 % (0-10); NRBC Flagged by Analyzer 0 % (0-5); Neutrophil # 3.12 X10^3/uL (2.7-7.7); Neutrophil % 62.1 % (47-70); Platelet Count 195 K/mm3 (150-450); RBC Distribution Width CV 13.4 % (11.6-14.6); RBC Distribution Width SD 45.2 fl (35.1-43.9); Red Blood Count 4.12 M/mm3 (4.2-5.4)
[2023-02-07 10:55] LABS: International Normalized Ratio 1.1; Partial Thromboplast Time 26.9 Seconds (24.1-36.2); Prothrombin Time (Protime)PT. 13.5 SECONDS (11.7-14.9)
[2023-02-07 11:07] LABS: Anion Gap 5 (5-15); BUN 28 mg/dL (7-18); BUN/Creat Ratio 21.2 RATIO (10-20); Calcium,Total 9.6 mg/dL (8.5-10.1); Chloride 106 mmol/L (98-107); Creatinine, Serum 1.32 mg/dL (0.55-1.02); EST Glomerular Filtration Rate 42 mL/min (>60); Est Glom Filt Rate - Afr Amer 50 mL/min (>60); Glucose 107 mg/dL (74-106); Potassium 3.8 mmol/L (3.5-5.1); Sodium Level 138 mmol/L (136-145)
[2023-02-07 12:34] LABS: Hemoglobin A1c 4.9 % (3.8-5.6)
[2023-02-08 12:15] LABS: Fructosamine 278 umol/L (0-285)
[2023-02-17] VITALS (9 sets, daily range): BP systolic 103–169; BP diastolic 53–95; PULSE 65–80; RESP 12–18; TEMP 35.9–37.1; O2SAT 99–100
--- NOTE | 2023-02-17 | KNEE_PTH ---
PATIENT: HILARY WATSON LOC: [facility] U#:[id number] AGE/SX: 77/F ROOM: OK317 RE02/17/[address]: Dr. Hugo Esquivel DO : 1945 BED: 1 DIS: 02/19/2023 SPEC #: [id number] RECD: 02/17/23 15:15 STATUS: EDUIN GILLIS #: [id number] REZA: 02/17/23 00:[address]: Hugo Esquivel DEPT: SURGICAL PATHOLOGY RECD BY: Glenn Godwin ENTERED: 02/18/23 07:56 SP TYPE: TOTAL KNEE OTHR DR: MD Karina Venegas, DO Tissues: Knee, NOS Procedures: Decalcification bone/plaque Surgery Specimen Level IV HEADER OPERATION: ERAS, total knee replacement robotic arm assist PRE-OP DIAGNOSIS: Right knee degenerative joint disease TISSUE SUBMITTED: Bone and soft tissue right knee MICROSCOPIC DIAGNOSIS Bone and soft tissue, right knee, total knee replacement/resection: Pieces of bone with degenerative osteoarthritic changes. Fragments of dense fibroconnective tissue with reactive changes. DRISS:joaquin 02/23/2023 MICROSCOPIC DESCRIPTION Slides are reviewed. GROSS DESCRIPTION Received is one container designated bone and soft tissue right knee. The specimen consists of multiple fragments of cruz-yellow bone measuring in aggregate 14.0 x 12.0 x 2.0 cm. Also in the specimen container are multiple fragments of yellow-white soft tissue measuring in aggregate 5.0 x 1.5 x 0.7 cm. A number of bony fragments contain articular surfaces consistent with tibial plateau and femoral condyle and displaying prominent osteophyte formation, eburnation and bone erosion. [employer] Supervisor sections are submitted in two cassettes as follows: 1 - soft tissue, 2 - bone after decalcification. / AM:joaquin 02/18/2023 TC:5 CPT: 47339, 99981
[2023-02-17] MEDS: Magnesium 1 GM over 15 mins IV (10:23)
[2023-02-17] MEDS: Acetaminophen 500 MG Tablet 1000 MG PO ×3 (10:23→23:46)
[2023-02-17] MEDS: Gabapentin 600 MG Tablet PO (10:23)
[2023-02-17] MEDS: Scopolamine 1mg/72hr Patch 1 PATCH TD (10:23)
[2023-02-17] MEDS: Lactated Ringers 1,000 ML 15 ML IV (10:25)
--- NOTE | 2023-02-17 10:43 | PCM.HP.BLA ---
History and Physical Date of Admission: 02/17/23 [facility] [facility] [address] [place] [address] OFFICE VISIT Date of Service:? 12/31/22 MR#: [id number] Acct: [id number] Name:? HILARY MENA Rep #: [id number] : 1945 ? ? Provider: Dr. Hugo Esquivel, DO Age/Sex:? 77/F ? ? Location: [facility] [email or web address] Status: Signed with Addenda ADDENDUM by Dr. Hugo Esquivel, DO on 02/02/23 at 1004 Assessment and Plan Assessment and Plan (1) Right knee DJD: ?Status:?Acute ? ? ? Orders: Orders Knee 3 Views 12/31/22 Z96.659 - Presence of unspecified artificial knee joint ? Comments Comments: Patient is 77 years old and is frail, she is diabetic she has a language barrier and require inpatient stay for her last knee replacement this past October, therefore requesting inpatient admission again for this procedure. 02/02/23 1004 <Electronically signed by Hugo Esquivel DO> Date Hugo Esquivel DO cc: ? ~* Signed Intake Vital Signs ? 11/18/2315:40 Height 5 ft 5 in Intake Visit Reasons:?LEFT KNEE Chief Complaint: left knee Accompanied by: Son Is patient in pain?: No Allergies No Known Allergies Allergy (Verified 11/18/22 10:17) Medications metformin 500 mg tablet 500 mg PO DAILY DIABETES 07/25/22 [History Confirmed 12/31/22] valsartan 40 mg tablet 40 mg PO DAILY BP 07/30/22 [History Confirmed 12/31/22] acetaminophen 500 mg tablet 1,000 mg PO Q6H PRN #100 tabs 11/19/22 [Rx Confirmed 12/31/22] ibuprofen 200 mg tablet 200 mg PO Q6H PRN 12/31/22 [History Confirmed 12/31/22] PFSH Medical History?(Updated 12/31/22 @ 12:[address] Hugo Esquivel DO) Diabetes Edema Hypertension Non-smoker Pain Wears glasses Wears partial dentures Weight loss Surgical History?(Updated 11/19/22 @ 11:[address] Hugo Esquivel DO) Hx of left cataract extraction Hx of right cataract extraction Social History? Smoking Status:? Never smoker HPI LEFT KNEE Details: Parts of this documentation were recorded by a scribe, this documentation accurately reflects the service provided and the decisions made by me, Dr. Hugo Esquivel DO 12/31/22 1128. HILARY GELLER is a 77 year old F here today for? 6 week post op from left TKA. Son is here today to translate. She states that the left knee has improved since prior to surgery. Right knee pain has worsened the last 6 months. Denies any previous injections or surgery on the right knee. Ortho Exam General General: Yes no acute distress Neurologic: Yes alert and Yes oriented x3 Psychologic: Yes reasonable and appropriate Right Knee Skin/Wound: Yes CDI, No erythema, No ecchymosis and No swelling Homans Sign: No Knee ROM: No ROM-Extension -20 to 0 (26) and No ROM-Flexion 0-140 (115) Examination: Yes Med jt line tenderness and Yes Lat jt line tenderness Stability: NML: Anterior Drawer, NML: Posterior Drawer, NML: Valgus 0, NML: Valgus 30, NML: Varus 0 and NML: Varus 30 Patella Translation: 1 Left Knee Skin/Wound: Yes healed, No ecchymosis, No erythema and No swelling Homans Sign: No Knee ROM: No ROM-Extension -20 to 0 (lacking ) and No ROM-Flexion 0-140 (115) Patella Translation: 1 Head: Normocephalic Atraumatic Chest: symmetrical rise, non-labored breathing, no audible wheeze Abdomen: no guarding, non-rigid Supplemental Info 12/31/2022 x-ray left knee: Status post total knee arthroplasty with good interfaces and position 07/30/2022 x-ray left knee: advanced medial knee arthrosis [id number] subchondral cystic changes joint space collapse and bone spurs moderate patellofemoral arthrosis 07/30/2022 x-ray right knee: Moderate to severe knee arthrosis worse medial compartment Coding Level of Care Code Off vis,est,level 3 Diagnoses Right knee DJD? M17.11 Assessment and Plan Assessment and Plan (1) Right knee DJD: ?Status:?Acute ? ? ? Orders: Orders Knee 3 Views Today Z96.659 - Presence of unspecified artificial knee joint ? Plan personally reviewed patients xrays of the left knee. Educated that there is no sign of loosening or infection seen on xray. Educated that she should continue to work on ROM and she can continue to improve for up to 2 years. She will need prophylactic ATBs for life prior to any dental work/cleanings. reviewed X-rays of patient's right knee? from 07/30/2022.? There is no obvious fracture, dislocation, or lucency noted. Educated that she has osteoarthritis of the right knee. Treatment options are do nothing or bracing or PT or injection or TKA.?Risks, benefits and alternatives of surgery reviewed including but not limited to bleeding, infection, nerve, artery and/or tissue damage, fracture, VTE, mechanical feel of the knee, continued pain, stiffness and expected post-operative course. She wishes to proceed with right TKA SHWETA. Will schedule the surgery for 02/17/23. She does wish to have the IOVERA agian for this right knee. Will provide soap and drinks at IOVERA appointment. Follow up for IOVERA treatment or sooner if pain, swelling, numbness or associated symptoms, or concerns develop.? All questions answered. Patient in agreement of plan. 12/31/22 1250 <Electronically signed by Hugo Esquivel DO> Date Hugo Esquivel DO Cosigner Signature: Date (if applicable) ? CC: ? ~ I have examined the patient and the H&P has been reviewed. There are no clinical changes since date of exam.
[2023-02-17 10:56] LABS: Bedside Glucose 77 mg/dL (74-106)
[2023-02-17] MEDS: Cefazolin 2 GM in 0.9% Normal Saline 100 ML IV (11:36)
[2023-02-17] MEDS: TXA 1000mg in NS100 100ml (IVPB at Incision) 660 MG IV (12:00)
[2023-02-17] MEDS: dexAMETHasone 10 MG/ML Vial IV (12:02)
[2023-02-17] MEDS: Lactated Ringers 1,000 ML 125 ML IV ×2 (12:15→17:00)
[2023-02-17] MEDS: TXA 1000mg in NS100 100ml (IVPB at Closure) 660 MG IV (12:26)
[2023-02-17] MEDS: Epinephrine (1 mg/ml) 1 MG/ML VIAL (13:30)
[2023-02-17] MEDS: dexAMETHasone 4 MG/ML Vial (13:30)
[2023-02-17] MEDS: 0.9% Normal Saline (Pres. free 10 ML Vial (13:30)
--- NOTE | 2023-02-17 14:03 | OP.PCM_ITS ---
Operative Report Date of Procedure: 02/17/23 Preoperative diagnosis: Right knee DJD with flexion contracture Postoperative diagnosis: Same Procedure: Right total knee arthroplasty CT guided Robotic Assisted Implant: Theodora triathlon press fit, femoral component size3, tibial baseplate size 3, asymmetric patella size 32, polyethylene X3 size 9 CS Anesthesia: Spinal with adductor canal block Tourniquet time: 12 minutes at 300 mmHg Complications: None Condition: Stable to PACU Estimated blood loss: 175 cc Indication for procedure: This is a 77-year-old female with long standing degenerative joint disease of the knee with a flexion contracture who has failed conservative treatment and wished to proceed with elective total knee arthroplasty. Risk benefits and alternatives were reviewed including; risk of bleeding, infection, nerve artery and tissue damage, continued pain, postoperative stiffness, venous thromboembolism, need for postoperative rehabilitation, mechanical feel to the knee, and expected postoperative course. The pre- operative CT and templating was performed with component sizing. Procedure: The patient was met in the preoperative holding area. The operative extremity was identified by both patient and physician and was marked. Patient was met by anesthesia. An adductor canal block was placed by anesthesia postoperatively the patient was brought back to the operating room on a wheeled cart and transferred to the operating table in the supine position. Anesthesia was started. A well-padded tourniquet was placed on the operative extremity. The patient was prepped and draped in the usual sterile fashion. A timeout was called to ensure the proper patient procedure and extremity were being contemplated. An esmarch was used to exsanguinate the extremity. The tourniquet was inflated. A 10 blade scalpel was used to make a midline incision down through the skin and subcutaneous tissue. Skin retractors placed. Bovie and Aquamantis were used to perform meticulous hemostasis. full-thickness flaps were elevated medial and lateral along the joint capsule. A deep blade scalpel was used to perform a medial parapatellar arthrotomy. The knee was brought to full extension. A bovie was used to release the soft tissues off the most proximal aspect of the medial tibial plateau, a three-quarter inch curved osteotome was also used in this process. The infrapatellar fat pad was excised. The suprapatellar fat pad was excised partially anteriorolateraly and portion the anterioromedial pad was elevated from the femur. At this point our intra- articular femoral array was placed at a 45 degree angle proximal and posterior to the medial epicondyle. femoral checkpoint was placed at this time. Our tibial array was placed greater than 1 hands breath below the incision at a 20 degree angle stab incisions were made with a 15 blade scalpel and pins were placed and attached to the tibial array , tibial checkpoint was placed in the proximal tibial metaphysis. Tourniquet was let down. At this point registration ruvalcaba were taken throughout the knee . There was noted to be a 16 degree rigid flexion contracture once the knee was registered we then tensioned the medial and lateral ligaments in extension and 90 degrees of flexion. We then used these numbers to adjust our components within parameters to balance the knee in both flexion and extension once this was done on our monitor we then proceeded with using the robotic arm to make our tibial plateau cut, anterior and posterior chamfer and distal femur cuts. we removed the cut fragments with the use of a bovie and Nehemias, we did use a lamina tare weigher to insure we visualized and removed all posterior osteophytes and at this time also used the Aquamantis on the posterior joint capsule. we then trialed and required additional cuts to be made 1 mm of the tibia and additional 3 and half millimeters of the distal femur this did allow us to correct the flexion contracture to 5 degrees from full extension and achieved the desired plan with a well-balanced knee. we used the green probe to traci the corresponding tibial rotation based on our CT template. Lug holes were drilled in the femur the tibia preparation was completed with the appropriate sized base plate pinned based on previous rotation traci. An appropriate sized fin punch was used on the tibia and 4 corner drill was used for the press fit component and the patella was prepared by first using a caliper to ensure sufficient bone stock and a patellar reamer to remove the desired amount of bone. lug holes drilled for an asymmetric poly. We then brought the knee through range of motion with excellent patellar tracking. We thoroughly irrigated the knee. Trial components were removed a posterior capsular injection was preformed with our standard cocktail. In addition the aqua Mantis was also used to aid in hemostasis. Betadine rinse was allowed to sit and washed out completely. Components were press-fit into place. Aricept rinse was then used followed by several more liters of irrigation after it was allowed to sit. The joint capsule was closed with #1 Ethibond [id number] followed by Vicryl in the subcutaneous tissues with aaron in the skin. Arrays and checkpoints were removed prior to closure all counts were correct stab incisions were closed with a staple standard dressing in the form of Mepilex AG for the main incision and a small Mepilex over the pin holes. Thigh-high ROSALES hose applied over top of dressing. Patient tolerated the procedure well and was directed to PACU in stable condition . There were no intraoperative complications.
--- NOTE | 2023-02-17 14:40 | RAD_ITS ---
EXAM: XR RIGHT KNEE, 1 OR 2 VIEWS CLINICAL INDICATION: post op -- AP and Lateral xray of operative knee in PACU TECHNIQUE: Frontal and/or lateral views of the right knee. This report was created using [employer] report generation technology. COMPARISON: None. FINDINGS: BONES/JOINTS: Knee prosthesis in place in satisfactory position. SOFT TISSUES: Soft tissue gas related to recent surgery. Anterior skin aaron in place. No radiopaque foreign body. RAD/Knee 1 or 2 Views IMPRESSION: Satisfactory postop changes of right knee prosthesis. Electronically Signed: Kevon Zhu MD at 15:35 EDT ,
[2023-02-17] MEDS: Cefazolin 1 GM/50 ML BAG IV ×2 (15:24→23:49)
[2023-02-17] MEDS: Ondansetron 4 MG/2 ML Vial IV (20:00)
[2023-02-17] MEDS: 0.9% Saline Lock 10 ML Syringe IV (20:00)
[2023-02-17] MEDS: oxyCODONE 5 MG Tablet PO (20:00)
[2023-02-17] MEDS: Senna/Docusate Sodium 1 Tablet 2 TABLET PO (22:14)
[2023-02-18 05:02] VITALS: BP 118/83; PULSE 74; RESP 18; TEMP 36.6; O2SAT 100
[2023-02-18 06:19] LABS: Hematocrit 35.4 % (37-47); Hemoglobin 11.1 g/dL (12.0-15.0); Mean Corp Hgb Conc 31.4 g/dL (32-36); Mean Corpuscular Hgb 28.8 pg (27.0-32.0); Mean Corpuscular Volume 91.9 fL (81-99); Mean Platelet Vol. 10.7 fl (6.2-12.0); Platelet Count 190 K/mm3 (150-450); RBC Distribution Width CV 13.3 % (11.6-14.6); RBC Distribution Width SD 44.5 fl (35.1-43.9); Red Blood Count 3.85 M/mm3 (4.2-5.4); White Blood Count 11.3 K/mm3 (4.4-11.0)
[2023-02-18] MEDS: Ondansetron 4 MG/2 ML Vial IV (06:23)
[2023-02-18] MEDS: 0.9% Saline Lock 10 ML Syringe IV ×3 (06:23→22:32)
[2023-02-18] MEDS: Acetaminophen 500 MG Tablet 1000 MG PO ×3 (06:41→22:29)
[2023-02-18] MEDS: APIXABAN 2.5 MG TABLET (WCH) PO ×2 (06:41→22:29)
[2023-02-18] MEDS: oxyCODONE 5 MG Tablet PO ×2 (06:42→14:27)
[2023-02-18] MEDS: Cefazolin 1 GM/50 ML BAG IV (06:42)
[2023-02-18 06:53] LABS: Anion Gap 7 (5-15); BUN 20 mg/dL (7-18); BUN/Creat Ratio 12.7 RATIO (10-20); Calcium,Total 9.1 mg/dL (8.5-10.1); Chloride 103 mmol/L (98-107); Creatinine, Serum 1.58 mg/dL (0.55-1.02); EST Glomerular Filtration Rate 34 mL/min (>60); Est Glom Filt Rate - Afr Amer 41 mL/min (>60); Estimated Creatinine Clearance 25.74 ml/min; Glucose 139 mg/dL (74-106); Potassium 4.4 mmol/L (3.5-5.1); Sodium Level 134 mmol/L (136-145)
[2023-02-18 07:34] VITALS: O2SAT 96
[2023-02-18 07:42] VITALS: BP 125/74; PULSE 71; RESP 18; TEMP 36.7; O2SAT 100
[2023-02-18] MEDS: SACUBITRIL/VALSARTAN 24/26 MG TABLET 1 EACH PO (07:48)
[2023-02-18] MEDS: Senna/Docusate Sodium 1 Tablet 2 TABLET PO ×2 (07:48→22:29)
--- NOTE | 2023-02-18 10:00 | CASEMGMT ---
Addendum entered by Zack Correa 02/19/23 09:39: Call to Jenny @ [facility] Retail pharmacy re: Eliquis. Per Jenny there is no co-pay for the Eliquis. Original Note: RN?CM?BIOINFORMATICS ASSOCIATE?CM?to room to meet with patient and son for initial transition planning/care coordination?assessment.?RN?CM?introduced self and role at [facility].?Pt in bathroom w/therapy at this time. Pt is Telugu-speaking. Assess completed w/son. Care providers, pharmacy, and demographics verified/updated at this time. PCP: Dr Jones Specialists: Dr Esquivel Preferred Pharmacy: [facility] Retail Insurance: [employer] Prescription Benefit:?Yes Living Will/HPOA:?Pt does not currently have LW/HCPOA LNOK: SonRahul. Dtr, Jacey Living Arrangements: Pt lives w/her son, but plans are to go to her dtr's house @ d/c ([facility]). There are about 10 steps to get into dtr's home. Per Carmen/therapy, they have worked w/pt on stairs and pt doing well. Dtr does not work and will be able to assist pt as needed. Pt is indep w/ADL's @ baseline. Dtr and son are both very involved w/pt. They assist w/med mgmt, take pt to appts, get pt's groceries, meals, and laundry. Transportation:? son, dtr DME: Pt has the following DME:?cane, walker, W/C, and functioning glucometer w/supplies. ?Son states no need for further DME at this time.? HHC/SNF: No hx of either. Per son, plan is for pt to go to [facility] for OP therapy and states pt has appt scheduled on 02/20. Son as no concerns with going home to her dtr's home at time of discharge.??CM?to follow for any discharge planning/needs.? Son voices no concerns/needs at this time. PLAN:??Home to dtr's home and OP therapy @ [facility]. Mil PALACIOSN?RN?CM
[2023-02-18] MEDS: 0.9% Normal Saline 1,000 ML 100 ML IV ×2 (10:50→22:30)
--- NOTE | 2023-02-18 12:38 | PCM.PN.ORT ---
Subjective Subjective Patient seen and examined with her son at bedside. He states she is doing well better than she did with her last total knee. She denies any fevers chills shortness of breath or chest pain. She does get some nausea that is improved and some lightheadedness. She ambulated well with physical therapy. Objective Data Objective Data Vital Signs: Vital Signs Temp Pulse Resp BP Pulse Ox O2 Del Method O2 Flow Rate 98.0 F 71 18 125/74 H 100 Room Air 4 02/18/23 07:42 02/18/23 07:42 02/18/23 07:42 02/18/23 07:42 02/18/23 07:42 02/18/23 07:42 02/17/23 15:00 Oxygen Flow Rate (L/min) 4 Oxygen Delivery Method Room Air Weight: 116 lb 13.52 oz Body Mass Index (BMI) 20.0 Intake & Output: Intake and Output for Last 24 Hours 02/16/23 02/17/23 02/18/23 23:59 23:59 23:59 Intake Total 3127.83 / 3127.83 397.75 / 397.75 Output Total 950 / 950 750 / 750 Balance 2177.83 / 2177.83 -352.25 / -352.25 Lab / Micro Data Result Diagrams: 02/18/23 06:04 02/18/23 06:04 Labs: Laboratory Results - last 24 hr 02/18/23 06:04: WBC 11.3 H, RBC 3.85 L, Hgb 11.1 L, Hct 35.4 L, MCV 91.9, MCH 28.8, MCHC 31.4 L, RDW Std Deviation 44.5 H, RDW Coeff of Floyd 13.3, Plt Count 190, MPV 10.7 02/18/23 06:04: Sodium 134 L, Potassium 4.4, Chloride 103, Carbon Dioxide 24.0, Anion Gap 7, BUN 20 H, Creatinine 1.58 H, Estim Creat Clear Calc 25.74, Est GFR (MDRD) Af Amer 41 L, Est GFR (MDRD) Non-Af 34 L, BUN/Creatinine Ratio 12.7, Glucose 139 H, Calcium 9.1 Micro: Microbiology 02/07/23 09:56 Swab (Method) Nasal Screen MRSA/MSSA - Final Radiography Diagnostic Testing: Radiology Impression Knee X-Ray 02/17/23 14:40 IMPRESSION: Satisfactory postop changes of right knee prosthesis. Electronically Signed: Kevon Zhu MD at 15:35 EDT , Physical Exam Const no apparent distress Extremity Extremity Narrative: Dressings clean dry intact compartments soft neurovascular intact Assessment & Plan Assessment/Plan (1) S/P total knee arthroplasty: (2) Acute renal insufficiency: PLAN: Plan Postop day #1 right total knee arthroplasty Overall doing well pain controlled PT OT weightbearing as tolerated Oxycodone 5 to 10 mg every 4 hours DVT prophylaxis SCDs ROSALES hose Eliquis 2.5 mg twice daily Acute renal insufficiency noted on labs hospitalist consulted started normal saline 100 cc/h we will recheck kidney function tomorrow morning as long as not worsening and improving patient may be discharged home tomorrow And begin outpatient physical therapy. First dressing change to be performed on Thursday prior to for shower and then incisions to be clean daily with antibacterial soap and warm water dressing should be changed daily at that point.
--- NOTE | 2023-02-18 12:42 | DCINST_ITS ---
Discharge Instructions Diet Discharge Diet: No restrictions Activity Weight Bearing Status: Weight bearing as tolerated Dressing / Incision Call your doctor if you observe: Shortness of breath and Chest pain Additional Dressing/Incision Instructions:: Ice and elevate lower extremities 2 weeks while not ambulating. Ambulation is encouraged. Weight bearing as tolerated. Use assistive devise for stability. Encourage FULL knee extension and flexion 1 time EVERY time you get up and down and MULTIPLE times per day. No showering 72 hours after surgery. Begin showering postop day #3. Remove the dressing prior to shower and gently wash with warm water and antibacterial soap then pat dry and place abdominal pad (or plain gauze) and ROSALES hose over top. This is to be done daily. Do not submerge for 3 weeks. If not showering daily after the initial 72 hours then you must clean incision and change dressing daily. Do not allow animals near the incision area. Keep clean. Follow anti- coagulation recommendations as prescribed. Do not take any NSAIDs while on blood thinner. Do not take any additional narcotic pain medication other than what was prescribed on your surgery day without discussing with physician. Narcotic medication can be addictive. Do not drink alcohol while taking narcotics. Supplement narcotic prescription with acetaminophen 1000 mg 4 times a day. Start physical therapy. If you are not currently scheduled for physical therapy or you are unsure of appointment time please call office [facility] to arrange. Call Dr. Esquivel with any concerns. Follow Up Care Please Follow Up With: Hugo Esquivel DO When: 2 weeks Test Results: Test results from this visit will be discussed in further detail at your follow- up appointment, if applicable. Discharge Plan Admission Admit Date/Time: 02/17/23 14:03 Primary Reason for Your Visit: Right total knee arthroplasty Attending Provider: Hugo Esquivel Primary Care Provider: Karina Jones Consulting Providers: Tone Ramos ; Mitul Christian Discharge Orders/Prescriptions Prescriptions: New Eliquis 2.5 mg tablet 2.5 mg PO BID Qty: 60 0RF oxycodone 5 mg tablet 5 - 10 mg PO Q4H PRN (Reason: pain) 7 Days Qty: 60 0RF ondansetron 4 mg tablet,disintegrating 4 mg PO Q8H PRN (Reason: nausea and vomiting) Qty: 15 0RF Continued metformin 500 mg tablet 500 mg PO QODAY Entresto 24-26 mg tablet 1 tab PO DAILY Label Comments: TAKE 1 TABLET BY MOUTH EVERY OTHER DAY acetaminophen 500 mg tablet 1,000 mg PO Q6H PRN PRN (Reason: Pain) Discontinued ibuprofen 200 mg tablet 200 mg PO Q6H PRN (Reason: Pain) Referrals / Follow Up: Karina Jones DO [Primary Care Provider] - Disposition Disposition (needs filled in before D/C Order can be placed): Home, Self Care
[2023-02-18 14:19] VITALS: BP 149/59; PULSE 78; RESP 20; TEMP 36.6; O2SAT 98
--- NOTE | 2023-02-18 16:37 | PCM.PN.HOSP ---
Subjective Subjective Doing well, pain is controlled. Consulted for medical management with acute renal insufficiency creatinine at baseline is around 1.3 and it climbed to 1.58 Objective Data Objective Data Vital Signs: Vital Signs Temp Pulse Resp BP Pulse Ox O2 Del Method O2 Flow Rate 97.8 F 78 20 H 149/59 H 98 Room Air 4 02/18/23 14:19 02/18/23 14:19 02/18/23 14:19 02/18/23 14:19 02/18/23 14:19 02/18/23 14:19 02/17/23 15:00 Oxygen Flow Rate (L/min) 4 Oxygen Delivery Method Room Air Weight: 116 lb 13.52 oz Body Mass Index (BMI) 20.0 Intake & Output: Intake and Output for Last 24 Hours 02/17/23 02/18/23 02/19/23 03:59 03:59 03:59 Intake Total 3177.83 / 3177.83 947.75 / 947.75 Output Total 950 / 950 750 / 750 Balance 2227.83 / 2227.83 197.75 / 197.75 Lab / Micro Data Result Diagrams: 02/19/23 06:00 02/19/23 06:00 Labs: Laboratory Results - last 24 hr 02/18/23 06:04: WBC 11.3 H, RBC 3.85 L, Hgb 11.1 L, Hct 35.4 L, MCV 91.9, MCH 28.8, MCHC 31.4 L, RDW Std Deviation 44.5 H, RDW Coeff of Floyd 13.3, Plt Count 190, MPV 10.7 02/18/23 06:04: Sodium 134 L, Potassium 4.4, Chloride 103, Carbon Dioxide 24.0, Anion Gap 7, BUN 20 H, Creatinine 1.58 H, Estim Creat Clear Calc 25.74, Est GFR (MDRD) Af Amer 41 L, Est GFR (MDRD) Non-Af 34 L, BUN/Creatinine Ratio 12.7, Glucose 139 H, Calcium 9.1 Micro: Microbiology 02/07/23 09:56 Swab (Method) Nasal Screen MRSA/MSSA - Final Physical Exam Narrative General: Alert, Oriented x3, Cooperative, No apparent distress HEENT: Atraumatic, PERRLA, EOMI, Normocephalic Oral: Moist Mucosa Neck: Supple, No JVD Lungs: Clear to auscultation, Normal air movement, No rhonchi, No wheeze, No rales Cardiovascular: Regular rate, Regular Rhythm, Normal S1, Normal S2, No murmurs Abdomen: Soft, Non Tender, Non-Distended, No Hepato-splenomegaly Extremities: No edema, Capillary Refill Less than 3 Seconds Skin: Dressing on her right knee is CDI Musculoskeletal: No Tenderness to Palpation of Joints or Extremities Neurological: Cranial nerves II-XII grossly intact, Motor Exam 5/5 strength throughout, Sensory exam intact to light touch and pain Psych/Mental Status: Normal Affect, Appropriate Assessment & Plan Assessment/Plan (1) Elevated serum creatinine: PLAN: Plan 1. Status post right total knee 02/17/2023 ? Pain management per primary ? PT/OT 2. Elevated creatinine in the setting of CKD 3B ? Her creatinine is slightly elevated to 1.58 with a baseline of around 1.3 ? We will start her on normal saline at 100 as she is currently on metformin every other day and she was also on Entresto ? We will hold the Entresto and would recommend holding for several days after discharge it is appear that she has a history of heart failure so unsure as to why this is the medication she is on for hypertension ? If renal function improves could likely plan for discharge in the morning DVT: Cheryle Charges/Coding Visit Charges Inpatient E&M: 70199 Subs Hosp L2
[2023-02-18] MEDS: metFORMIN HCl 500 MG Tablet PO (17:08)
[2023-02-18 22:25] VITALS: BP 134/69; PULSE 82; RESP 18; TEMP 37.3; O2SAT 100
[2023-02-19 01:12] VITALS: BP 149/71; PULSE 84; RESP 20; TEMP 36.8; O2SAT 99
[2023-02-19 05:19] VITALS: BP 117/62; PULSE 70; RESP 20; TEMP 36.9; O2SAT 94
[2023-02-19] MEDS: Acetaminophen 500 MG Tablet 1000 MG PO (05:23)
[2023-02-19 06:30] LABS: Mean Corp Hgb Conc 32.1 g/dL (32-36); Mean Corpuscular Hgb 29.5 pg (27.0-32.0); Mean Corpuscular Volume 91.8 fL (81-99); Mean Platelet Vol. 11.6 fl (6.2-12.0); Platelet Count 130 K/mm3 (150-450); RBC Distribution Width CV 13.5 % (11.6-14.6); RBC Distribution Width SD 44.9 fl (35.1-43.9); Red Blood Count 3.05 M/mm3 (4.2-5.4); White Blood Count 7.9 K/mm3 (4.4-11.0)
[2023-02-19 08:02] LABS: Anion Gap 4 (5-15); BUN 19 mg/dL (7-18); BUN/Creat Ratio 16.5 RATIO (10-20); Calcium,Total 8.4 mg/dL (8.5-10.1); Chloride 108 mmol/L (98-107); Creatinine, Serum 1.15 mg/dL (0.55-1.02); EST Glomerular Filtration Rate 49 mL/min (>60); Est Glom Filt Rate - Afr Amer 59 mL/min (>60); Estimated Creatinine Clearance 35.37 ml/min; Glucose 95 mg/dL (74-106); Potassium 3.6 mmol/L (3.5-5.1); Sodium Level 139 mmol/L (136-145)
[2023-02-19 08:14] VITALS: BP 130/72; PULSE 83; RESP 18; TEMP 36.6; O2SAT 98
[2023-02-19] MEDS: 0.9% Normal Saline 1,000 ML 100 ML IV (08:20)
[2023-02-19] MEDS: oxyCODONE 5 MG Tablet PO (08:20)
[2023-02-19] MEDS: Senna/Docusate Sodium 1 Tablet 2 TABLET PO (08:21)
[2023-02-19] MEDS: APIXABAN 2.5 MG TABLET (WCH) PO (08:21)
--- NOTE | 2023-02-19 09:15 | PCM.PN.HOSP ---
Subjective Subjective Doing well, pain is well controlled and she tolerated the surgery better than not her left knee replacement Objective Data Objective Data Vital Signs: Vital Signs Temp Pulse Resp BP Pulse Ox O2 Del Method O2 Flow Rate 97.8 F 83 18 130/72 H 98 Room Air 4 02/19/23 08:14 02/19/23 08:14 02/19/23 08:14 02/19/23 08:14 02/19/23 08:14 02/19/23 08:14 02/17/23 15:00 Oxygen Flow Rate (L/min) 4 Oxygen Delivery Method Room Air Weight: 116 lb 13.52 oz Body Mass Index (BMI) 20.0 Intake & Output: Intake and Output for Last 24 Hours 02/18/23 02/19/23 02/20/23 03:59 03:59 03:59 Intake Total 3177.83 / 3177.83 1947.75 / 1947.75 983.33 / 983.33 Output Total 950 / 950 750 / 750 Balance 2227.83 / 2227.83 1197.75 / 1197.75 983.33 / 983.33 Lab / Micro Data Result Diagrams: 02/19/23 06:00 02/19/23 06:00 Labs: Laboratory Results - last 24 hr 02/19/23 06:00: WBC 7.9, RBC 3.05 L, Hgb 9.0 L, Hct 28.0 L, MCV 91.8, MCH 29.5, MCHC 32.1, RDW Std Deviation 44.9 H, RDW Coeff of Floyd 13.5, Plt Count 130 L, MPV 11.6 02/19/23 06:00: Sodium 139, Potassium 3.6, Chloride 108 H, Carbon Dioxide 27.0, Anion Gap 4 L, BUN 19 H, Creatinine 1.15 H, Estim Creat Clear Calc 35.37, Est GFR (MDRD) Af Amer 59 L, Est GFR (MDRD) Non-Af 49 L, BUN/Creatinine Ratio 16.5, Glucose 95, Calcium 8.4 L Micro: Microbiology 02/07/23 09:56 Swab (Method) Nasal Screen MRSA/MSSA - Final Physical Exam Narrative General: Alert, Oriented x3, Cooperative, No apparent distress HEENT: Atraumatic, PERRLA, EOMI, Normocephalic Oral: Moist Mucosa Neck: Supple, No JVD Lungs: Clear to auscultation, Normal air movement, No rhonchi, No wheeze, No rales Cardiovascular: Regular rate, Regular Rhythm, Normal S1, Normal S2, No murmurs Abdomen: Soft, Non Tender, Non-Distended, No Hepato-splenomegaly Extremities: No edema, Capillary Refill Less than 3 Seconds Skin: Dressing on her right knee is CDI Musculoskeletal: No Tenderness to Palpation of Joints or Extremities Neurological: Cranial nerves II-XII grossly intact, Motor Exam 5/5 strength throughout, Sensory exam intact to light touch and pain Psych/Mental Status: Normal Affect, Appropriate Assessment & Plan Assessment/Plan (1) Elevated serum creatinine: PLAN: Plan 1. Status post right total knee 02/17/2023 ? Pain management per primary ? PT/OT 2. Elevated creatinine in the setting of CKD 3B ?And is improved to 1.15 ? Restart Entresto on 02/21/2023 ? Medically stable for discharge DVT: Eliquis Charges/Coding Visit Charges Office Visits / Consults: 55123 OV L3 Est
--- NOTE | 2023-02-19 09:49 | NURSING ---
son updated and aware of discharge
== END 2023-02-19 11:25 | disposition home or self-care (01) ==
LOC: SDC 14:55 → MS3 14:56
PROVIDERS: Anesthesiology; Family Medicine; Admitting Provider Orthopaedic Surgery; PCP Family Medicine; Referring Provider Orthopaedic Surgery; Visit Provider Orthopaedic Surgery
PROC: 0SRC0JZ Replacement of Right Knee Joint with Synthetic Substitute, Open Approach (ICD-10-PCS; CPT 27447; principal; 2023-02-17 11:45)
DX: M17.11 Unilateral primary osteoarthritis, right knee (principal); E11.22 Type 2 diabetes mellitus with diabetic chronic kidney disease; N18.32 Chronic kidney disease, stage 3b; M24.561 Contracture, right knee; N28.9 Disorder of kidney and ureter, unspecified; Z79.84 Long term (current) use of oral hypoglycemic drugs; I12.9 Hypertensive chronic kidney disease with stage 1 through stage 4 chronic kidney disease, or unspecified chronic kidney disease; Z79.899 Other long term (current) drug therapy
CPT/HCPCS: 27447; S2900; 01402; 64447; 36415; 73560; 80048; 82962; 82985; 83036; 83735; 85025; 85027; 85610; 85730; 86850; 86900; 86901; 87081; 88305; 88311; 94668; 96361; 96365; 96366; 96375; 96376; 97110; 97116; 97162; 97166; 97530; 99221; C1776; J7030; J7120; A4216; G0378; J2405; J3475; J3490

== ENCOUNTER 2023-04-15 17:30 | Outpatient (RCR) | payer MEDICAID, SELFPAY ==
--- NOTE | 2023-03-06 11:37 | HP.PTEVAL ---
Patient's Visit Information HILARY GELLER is a 77 year old F referred to Physical Therapy by Dr. Hugo Esquivel DO with a diagnosis of R TKR. Date of Evaluation: 03/06/23 Physical Therapist: Derick Aguilera, PT, KATELYN, SCS, CSCS - Visit Plan Frequency: 2x /Week Duration: 2 Months Plan: Follwing approval 2x times week for 8 weeks - Subjective Mrs. Velazquez is a pleasant 77 yo who was referred to our care by Dr Esquivel with a dx of R s/p TKA on 02/17/23. She was accompanies by her son who helps to translate as she has little understanding of [place]. She states that her r knee has been hurting for a long time. She had her left knee replace last year. patient states that she is sleeping 5 hrs a night prior to waking up - Pain Right Knee Pain Intensity (Out of 10): 5 Pain Intensity Range: 2, 8 - Objective R knee incision sight is healing well, she still has her aaron in and is having them removed at 1:45 today. Girth measurement indicate swelling of 14.75 inches vs 13 inches. Her PROM is -15 ext and 105 flexion. I spoke to her son and prior therapist and leg ext was a problem on her left side. Its my understanding they were thinking about a manipulation. MMT was deferred to make appoint and will check next visit. pat was able to do a slr. Ambulate slowly with a cane at this time. - Balance/Special Test Scores WOMAC Total Score: 48 WOMAC Percentatge: 45.4600 - Goals Goal 1:: Patient will be able to return DEMO HEP Goal Time Frame: 1 Week Goal 2:: Improve ROM 10% Goal Time Frame: 2 Weeks Goal 3:: Improve strength 10% by 4 weeks Goal 4:: Ambulate with out assistive device Goal Time Frame: 4-6 Weeks - Rehabilitation Potential Physical Therapy Diagnosis: R TKR with decreased ROM Rehabilitation Potential: Good - Anticipated Interventions Patient/Client Instruction: Educate patient on: Condition, Plan of Care For the Purpose of:: To decrease pain, To increase ROM, To increase flexibility/ROM, To improve endurance, To improve safety with gait Therapeutic Exercise to Include: Strength training, Endurance training, Balance training For the Purpose of:: To decrease pain, To increase ROM, To improve endurance, To improve safety with gait Manual Therapy Techniques to Include: Mobilization, Manipulation, Passive ROM For the Purpose of:: To decrease pain, To increase ROM, To increase flexibility/ROM, To improve tolerance to ADL's Thank you for the opportunity to evaluate your patient. For Medicare and Medicare HMO plans, please review the plan of care and approve it. It will need to be FAXED BACK to us at [phone] for Medicare purposes. For Medicare only, by signing this I certify the plan of care. Please let me know if there are questions or concerns regarding this plan of care. Physician Signature: Date:
== END 2023-04-15 19:00 | disposition home or self-care (01) ==
LOC: PT 17:30
PROVIDERS: PCP Family Medicine; Referring Provider Orthopaedic Surgery; Visit Provider Orthopaedic Surgery
DX: M17.11 Unilateral primary osteoarthritis, right knee (principal)
CPT/HCPCS: 97110; 97140; 97161

== ENCOUNTER → 2023-12-23 | Outpatient (CLI) | payer MEDICAID, SELFPAY ==
[2023-12-23 11:48] LABS: Absolute Lymphocyte Count 1.48 X10^3/uL (0.83-4.51); Absolute Neutrophil Count 3.4 X10^3/uL (2.0-7.7); Basophil# 0.05 X10^3/uL; Basophil% 0.9 % (0-1); Eosinophil# 0.14 X10^3/uL; Eosinophils% 2.6 % (0-5); Hematocrit 40.2 % (37-47); Hemoglobin 12.5 g/dL (12.0-15.0); Lymphocyte # 1.48 X10^3/ul (0.83-4.51); Lymphocyte % 27.4 % (19-41); Mean Corp Hgb Conc 31.1 g/dL (32-36); Mean Corpuscular Hgb 28.3 pg (27.0-32.0); Mean Platelet Vol. 11.8 fl (6.2-12.0); Monocyte# 0.36 X10^3/uL; Monocyte% 6.7 % (0-10); NRBC Flagged by Analyzer 0 % (0-5); Neutrophil # 3.36 X10^3/uL (2.7-7.7); Neutrophil % 62.2 % (47-70); Platelet Count 208 K/mm3 (150-450); RBC Distribution Width CV 13.2 % (11.6-14.6); RBC Distribution Width SD 43.8 fl (35.1-43.9); Red Blood Count 4.42 M/mm3 (4.2-5.4); White Blood Count 5.4 K/mm3 (4.4-11.0)
[2023-12-23 12:38] LABS: Hemoglobin A1c 5.5 % (3.8-5.6)
[2023-12-23 12:47] LABS: AST(SGOT) 9 U/L (15-37); Alanine Aminotransfer ALT/SGPT 13 U/L (13-56); Albumin, Serum 3.9 g/dL (3.2-5.0); Alkaline Phosphatase 116 U/L (45-117); Anion Gap 5 (5-15); BUN 25 mg/dL (7-18); BUN/Creat Ratio 17.9 RATIO (10-20); Calcium,Total 9.4 mg/dL (8.5-10.1); Chloride 107 mmol/L (98-107); Cholesterol 223 mg/dL (200); EST Glomerular Filtration Rate 39 mL/min (>60); Est Glom Filt Rate - Afr Amer 47 mL/min (>60); Glucose 93 mg/dL (74-106); High Density Lipoprotein 42 mg/dL; Potassium 4.4 mmol/L (3.5-5.1); Protein, Total 7.9 g/dL (6.4-8.2); Sodium Level 139 mmol/L (136-145); Triglycerides 178 mg/dL; Very Low Density Lipoprotein 36 mg/dL (5-40)
== END | disposition home or self-care (01) ==
LOC: MFPLAB 09:41
PROVIDERS: PCP Family Medicine; Visit Provider Family Medicine
DX: I10 Essential (primary) hypertension (principal); E11.9 Type 2 diabetes mellitus without complications
CPT/HCPCS: 36415; 80053; 80061; 83036; 85025

== ENCOUNTER → 2025-05-31 | Outpatient (CLI) | payer MEDICAID, SELFPAY ==
[2025-05-31 11:21] LABS: Hematocrit 42.3 % (37-47); Hemoglobin 13.7 g/dL (12.0-15.0); Immature Granulocytes Count 0.030 X10^3/uL (0.0-0.0); Mean Corp Hgb Conc 32.4 g/dL (32-36); Mean Corpuscular Volume 88.9 fL (81-99); Mean Platelet Vol. 11.0 fl (6.2-12.0); NRBC Flagged by Analyzer 0 % (0-5); Platelet Count 209 K/mm3 (150-450); RBC Distribution Width CV 13.0 % (11.6-14.6); RBC Distribution Width SD 42.5 fl (35.1-43.9); Red Blood Count 4.76 M/mm3 (4.2-5.4); White Blood Count 6.8 K/mm3 (4.4-11.0)
[2025-05-31 12:07] LABS: AST(SGOT) 18 U/L (<=31); Alanine Aminotransfer ALT/SGPT 7 U/L (<=34); Albumin, Serum 4.3 g/dL (3.4-4.8); Alkaline Phosphatase 111 U/L (35-104); Anion Gap 13 (5-15); BUN 20 mg/dL (4-19); BUN/Creat Ratio 13.5 RATIO (10-20); Calcium,Total 9.6 mg/dL (7.6-11.0); Carbon Dioxide 27.4 mmol/L (21.0-32.0); Chloride 100 mmol/L (98-108); Cholesterol 201 mg/dL (<=200); Globulin 3.4 g/dL (2.2-4.2); Glucose 96 mg/dL (70-99); Low Density Lipoprotein Calc. 117 mg/dL; Potassium 4.4 mmol/L (3.3-5.1); Pro- Brain NATRIURETIC PEPTIDE 190 pg/mL (<=1800); Triglycerides 248 mg/dL; Very Low Density Lipoprotein 50 mg/dL (5-40); cholesterol:hdl ratio screen 5.83
== END | disposition home or self-care (01) ==
PROVIDERS: PCP Family Medicine; Referring Provider Physician Assistant Medical; Visit Provider Physician Assistant Medical
DX: I10 Essential (primary) hypertension (principal); I42.9 Cardiomyopathy, unspecified
CPT/HCPCS: 36415; 80053; 80061; 83880; 85025

== ENCOUNTER → 2025-07-21 | Outpatient (CLI) | payer OTHER, SELFPAY ==
--- NOTE | 2025-07-21 12:57 | ECHOD_ITS ---
Reason For Study Reason For Study: CHEST PAIN Procedure This was a 2D Doppler, Color Flow transthoracic echocardiogram. Exam performed in department. Left Ventricle Normal LV size. Left ventricular systolic function is normal. The left ventricular ejection fraction is 60 %. No evidence for diastolic dysfunction. No regional wall motion abnormalities noted. Right Ventricle Normal RV size. Normal systolic function. Atria Normal left atrium. Normal right atrium. Mitral Valve There is Mild focal posterior mitral annular calcification. Trivial mitral valve insufficiency. Tricuspid Valve Normal tricuspid valve. Trivial tricuspid valve insufficiency. Aortic Valve Trisinus/trileaflet aortic valve. Pulmonic Valve Normal pulmonic valve. Great Vessels Normal sized aortic root. Pericardium/Pleural No pericardial effusion. MMode/2D Measurements & Calculations LVIDd: 4.1 cm IVSd: 0.93 cm Ao root diam: 3.1 cm LVIDs: 2.8 cm LVPWd: 0.93 cm RVDd: 2.7 cm FS: 31.3 % asc Aorta Diam: 3.2 cm LAV(MOD-bp): 50.0 ml LVAd ap4: 18.7 cm2 LAV(MOD-bp) Indexed: 30.1 ml/m2 LVLd ap4: 6.4 cm LAV(MOD-sp2): 50.4 ml EDV(MOD-sp4): 47.1 ml LAV(MOD-sp4): 49.6 ml EDV(sp4-el): 46.5 ml LVAs ap4: 10.1 cm2 LVLs ap4: 5.3 cm ESV(MOD-sp4): 17.4 ml ESV(sp4-el): 16.3 ml EF(MOD-sp4): 63.1 % EF(sp4-el): 64.9 % LVAd ap2: 13.8 cm2 SV(MOD-sp4): 29.7 ml SV(MOD-sp2): 16.7 ml LVLd ap2: 5.7 cm SI(MOD-sp4): 17.9 ml/m2 SI(MOD-sp2): 10.1 ml/m2 EDV(MOD-sp2): 28.9 ml EDV(sp2-el): 28.7 ml LVAs ap2: 8.2 cm2 LVLs ap2: 5.0 cm ESV(MOD-sp2): 12.2 ml ESV(sp2-el): 11.3 ml EF(MOD-sp2): 57.9 % SV(sp4-el): 30.2 ml LA dimension(2D): 4.1 cm LA A4 area: 18.5 cm2 RA A4 area: 11.0 cm2 TAPSE: 2.0 cm Time Measurements MV dec time: 0.29 sec Doppler Measurements & Calculations MV E max nolan: 52.7 cm/sec Lat Peak E' Nolan: 5.6 cm/sec Med Peak E' Nolan: 4.9 cm/sec MV A max nolan: 81.0 cm/sec E/E' lat: 9.5 E/E' med: 10.8 MV E/A: 0.65 MV V2 max: 99.2 cm/sec MV P1/2t max nolan: 64.7 cm/sec Ao V2 max: 130.0 cm/sec MV max P.9 mmHg MV P1/2t: 92.5 msec Ao max P.8 mmHg MV V2 mean: 49.5 cm/sec Ao V2 mean: 91.9 cm/sec MV mean P.1 mmHg MV dec slope: 204.9 cm/sec2 Ao mean P.7 mmHg MV V2 VTI: 24.3 cm MVA(P1/2t): 2.4 cm2 Ao V2 VTI: 27.9 cm AV (velocity ratio): 0.67 LV V1 max: 91.5 cm/sec PA V2 max: 75.0 cm/sec TR max nolan: 224.0 cm/sec LV V1 max P.4 mmHg TR max P.3 mmHg LV V1 mean P.6 mmHg LV V1 mean: 58.7 cm/sec LV V1 VTI: 18.6 cm ECHO/Echo Complete Interpretation Summary The left ventricular ejection fraction is 60 %. No evidence for diastolic dysfunction. There is Mild focal posterior mitral annular calcification. Ordering Physician: Tejal Nair Referring Physician: Hallie Eli Performed By: Karey Ward RDCS, RVT
== END | disposition home or self-care (01) ==
LOC: CVS 12:54
PROVIDERS: PCP Family Medicine; Referring Provider Physician Assistant Medical; Visit Provider Physician Assistant Medical
DX: R07.9 Chest pain, unspecified (principal); I42.9 Cardiomyopathy, unspecified; R06.09 Other forms of dyspnea; I10 Essential (primary) hypertension
CPT/HCPCS: 93306

== ENCOUNTER → 2025-08-08 | Outpatient (CLI) | payer OTHER, SELFPAY ==
--- NOTE | 2025-08-08 07:35 | BD_ITS ---
PROCEDURE: DEXA BONE DENSITY STUDY 08/08/2025 REASON FOR EXAM: F, age 80 y/o . Postmenopausal. TECHNIQUE: Procedure Code: BDDBD Modality: DX Procedure: DEXA BONE DENSITY STUDY COMPARISON: None FINDINGS: BMD and T-SCORES Lumbar spine: 0.874 g/cm2, T-score -1.6 Levels: L1 through L4 Left femoral neck: 0.529 g/cm2, T-score -2.9 Left total hip: 0.668 g/cm2, T-score -2.2 Right femoral neck: 0.592 g/cm2, T-score -2.3 Right total hip: 0.673 g/cm2, T-score -2.2 The World Health Organization has defined the following categories based on bone density: Normal bone density: T-score equal to or greater than -1.0 Osteopenia: T-score between -1.0 and -2.5 Osteoporosis: T-score equal to or less than -2.5 FRAX (or Comparable) Fracture Risk Assessment: 10 Year Probability of Fracture: Major Osteoporotic Fracture: 16% Hip Fracture: 5% (Note: FRAX is not to be reported in setting of normal range bone density, osteoporosis on DEXA, known history of osteoporosis, prior osteoporotic hip or vertebral fracture, or for any patient undergoing pharmacological treatment for bone loss.) The National Osteoporosis Foundation (NOF) recommends pharmacological treatment for patients with a FRAX 10-year risk of 3% or higher for a hip fracture, or 20% or higher for a major osteoporotic fracture, to prevent osteoporosis and reduce fracture risk. The patient does meet the pharmacological treatment recommendations for prevention of osteoporosis. BD/Dexa Bone Density Study IMPRESSION: OSTEOPOROSIS. Recommend follow-up in 1 year. Reading [facility]
== END | disposition home or self-care (01) ==
PROVIDERS: PCP Family Medicine; Referring Provider Family Medicine; Visit Provider Family Medicine
DX: Z13.820 Encounter for screening for osteoporosis (principal); Z78.0 Asymptomatic menopausal state
CPT/HCPCS: 77080

== ENCOUNTER → 2025-09-11 | Outpatient (CLI) | payer OTHER, SELFPAY ==
--- OUTSIDE RECORDS SUMMARY | 2025-09-11 06:22 | XMS RPT_ITS | CCD ---
Author Organization [facility] CliniSyhi Care Team Providers Care Marble Supervisor Name Role Phone STEPHAN Copeland Attending Provider Jessica ROTHMAN PA Renee Attending Provider [phone] Dr. Dylan Jason Attending Provider [phone] STEPHAN Copeland Attending Provider [phone] Jessica PA PA Renee Attending Provider [phone] Dr. Dylan Jason Attending Provider [phone] Hugo Esquivel Attending Provider [phone])[phone] Lust PA, PA Renee Primary Care Provider [phone] Liatst PA, PA Renee Referring Provider [phone] STEPHAN Huizar Attending Provider [phone] Fernando SWITCH ENGINEER, SWITCH ENGINEER-C Lisbet Primary Care Provider Dr. Hugo Esquivel Admit Provider [phone] Hugo Esquivel Referring Provider Dr. Hugo Esquivel Other Provider [phone] Johann Cannon Other Provider Dr. Lindsey Mccullough Attending Provider Dr. Johann Cannon Attending Provider [phone] Hugo Esquivel Attending Provider [phone] Jessica PA, PA Renee Primary Care Provider [phone] Lust PA, PA Renee Referring Provider Fernando SWITCH ENGINEER, SWITCH ENGINEER-C Lisbet Primary Care Provider Dr. Gerald Diaz Attending Provider Dr. Hugo Esquivel Referring Provider Yasmin ROTHMAN PA Umberto Attending Provider Alvin, Dr. Arias Admit Provider Dr. Hugo Esquivel Other Provider Dr. Johann Cannon Other Provider Koram, Dr. Lindsey Pichardo Attending Provider Dr. Dylan Jason Attending Provider Korsabino, Dr. Lindsey Pichardo Referring Provider Dr. Johann Cannon Attending Provider Fernando SWITCH ENGINEER, SWITCH ENGINEER-C Lisbet Referring Provider STEPHAN Nelson Referring Provider Alvin, Dr. Arias Attending Provider DO Karina Jones Primary Care Provider DO Karina Jones Referring Provider Dr. Tone Ramos Other Provider Dr. Mitul Christian Other Provider Dr. Mitul Christian Attending Provider Hallie Eli MD Primary Care Provider Hallie Eli MD Referring Provider Tejal Braxton Attending Provider Tejal Braxton Referring Provider Hallie Eli MD Primary Care Physician Tejal Braxton Attending Physician Dr. Dylan Jason MD Attending Physician Hallie Eli Referring Unavailable Hallie Eli Attending Unavailable Sreedhar, Chalon Primary Care Unavailable Tejal Braxton Referring Unavail able Tejal Braxton Attending Unavail able Sreedhar, Chalon Primary Care Unavailable Sreedhar, Chalon Primary Care Unavailable Dylan Jason Attending Unavailable Sreedhar, Chalon Referring Unavailable Joanie ROTHMAN, Tejal De Luna Attending Unavail able Sreedhar, Chalon Primary Care Unavailable Sreedhar, Chalon Referring Unavailable Joanie ROTHMAN, Tejal De Luna Attending Unavail able Sreedhar, Chalon Primary Care Unavailable Joanie ROTHMAN, Tejal De Luna Referring Unavail able Sreedhar, Chalon Primary Care Unavailable Tejal Braxton Attending Unavail able Joanie ROTHMAN, Tejal De Luna Referring Unavail able Sreedhar, Chalon Primary Care Unavailable Joanie ROTHMAN, Tejal De Luna Attending Unavail able Sreedhar, Chalon Attending Unavailable Sreedhar, Chalon Referring Unavailable Sreedhar, Chalon Primary Care Unavailable Sreedhar, Chalon Referring Unavailable Joanie ROTHMAN, Tejal De Luna Attending Unavail able Sreedhar, Chalon Primary Care Unavailable Medications Current Medications Medication Drug Class(es) Dates Sig (Normalized) Sig (Original) atorvastatin 20 mg oral tablet (5 sources) HMG-CoA Reductase Inhibitor Start: 07-28-2025 take 1 tablet by mouth at bedtime Atorvastatin 20 mg tablet Active 20 mg PO AT BEDTIME July 28, 2025 12:00am Complies with drug therapy Start: 03-28-2024 End: 05-31-2025 take 1 tablet by mouth once daily Atorvastatin 20 mg tablet Discontinued 20 mg PO daily March 28, 2024 12:00am May 31, 2025 10:28am cholecalciferol 0.25 mg oral capsule (1 source) Vitamin D Start: 07-28-2025 take 1 capsule by mouth once daily Cholecalciferol (Vitamin D3) 250 mcg (10,000 unit) capsule Active 250 ug PO daily July 28, 2025 12:00am Complies with drug therapy losartan potassium 25 mg oral tablet (1 source) Angiotensin 2 Receptor Monique Start: 07-28-2025 take 1 tablet by mouth once daily Losartan 25 mg tablet Active 25 mg PO daily 3 July 28, 2025 12:00am Complies with drug therapy [place] (Nk) (3 sources) Start: 05-31-2025 [place] (Nk) Active May 31, 2025 12:00am valsartan 40 mg oral tablet (8 sources) Angiotensin 2 Receptor Monique Start: 07-30-2022 take 40 mg by mouth once daily Valsartan Active 40 MG PO DAILY July 30, 2022 12:00am Start: 07-30-2022 take 40 mg by mouth twice annette y Valsartan Active 40 MG PO TWICE A DAY July 29, 2022 11:00pm Completed/Discontinued Medications Medication Drug Class(es) Dates Sig (Normalized) Sig (Original) acetaminophen 500 mg oral tablet (19 sources) Start: 11-19-2022 End: 10-28-2024 take 2 tablets by mouth every six hours as needed for pain Acetaminophen 500 mg tablet Discontinued 1000 mg PO EVERY 6 HOURS NEEDED as needed for Pain February 03, 2023 1:12pm October 28, 2024 2:22pm Start: 11-19-2022 End: 02-03-2023 take 1000 mg by mouth every six hours as needed Acetaminophen Active 1000 MG PO EVERY 6 HOURS NEEDED February 03, 2023 12:12pm apixaban 2.5 mg oral tablet (19 sources) Factor Xa Inhibitor Start: 02-18-2023 End: 04-01-2023 take 1 tablet by mouth twice daily Apixaban (Eliquis) 2.5 mg tablet Discontinued 2.5 mg PO TWICE A DAY 60 0 February 18, 2023 12:00am April 01, 2023 2:09pm Start: 11-19-2022 End: 12-31-2022 take 1 tablet by mouth twice daily Apixaban (Eliquis) 2.5 mg tablet Discontinued 2.5 mg PO TWICE A DAY 30 0 November 19, 2022 1:00am December 31, 2022 12:29pm ibuprofen 200 mg oral tablet (10 sources) Nonsteroidal Anti-inflammatory Drug Start: 12-31-2022 End: 02-18-2023 take 1 tablet by mouth every six hours as needed for pain Ibuprofen 200 mg tablet Discontinued 200 mg PO EVERY 6 HOURS as needed for Pain December 31, 2022 1:00am February 18, 2023 12:43pm meloxicam 15 mg oral tablet (15 sources) Nonsteroidal Anti-inflammatory Drug Start: 07-25-2022 End: 08-25-2022 take 1 tablet by mouth once daily Meloxicam 15 mg tablet Discontinued 15 mg PO DAILY 30 0 July 25, 2022 12:00am August 25, 2022 3:22pm metFORMIN hydrochloride 500 mg oral tablet (15 sources) Biguanide Start: 07-25-2022 End: 10-28-2024 take 1 tablet by mouth every other day Metformin 500 mg tablet Discontinued 500 mg PO EVERY OTHER DAY July 25, 2022 12:00am October 28, 2024 2:22pm DIABETES Start: 07-25-2022 take 500 mg by mouth once annette y Metformin Active 500 MG PO DAILY July 25, 2022 12:00am methylPREDNISolone 4 mg oral tablet (15 sources) Corticosteroid Start: 07-25-2022 End: 07-31-2022 take 1 tablet by mouth once Methylprednisolone (Medrol (Michael)) 4 mg tablets,dose pack Discontinued 4 mg PO per package directions 21 6 0 July 25, 2022 12:00am July 30, 2022 12:00am July 31, 2022 12:03am ondansetron 4 mg disintegrating oral tablet (7 sources) Serotonin-3 Receptor Antagonist Start: 02-18-2023 End: 10-28-2024 take 1 tablet by mouth every eight hours as needed for nausea and vomiting Ondansetron 4 mg tablet,disintegrating Discontinued 4 mg PO Q8H as needed for nausea and vomiting 15 0 February 18, 2023 12:00am October 28, 2024 2:22pm oxyCODONE hydrochloride 5 mg oral tablet (19 sources) Opioid Agonist Start: 02-18-2023 End: 03-28-2024 take 5-10 mg by mouth every four hours as needed for pain Oxycodone 5 mg tablet Discontinued 5 - 10 mg PO Q4H as needed for pain 60 7 0 February 18, 2023 March 28, 2024 11:41am Other acute postprocedural pain Other acute postprocedural pain Start: 11-19-2022 End: 12-31-2022 take 5-10 mg by mouth every four hours as needed for pain Oxycodone 5 mg tablet Discontinued 5 - 10 mg PO Q4H as needed for pain 60 5 0 November 19, 2022 December 31, 2022 12:29pm Other acute postprocedural pain Other acute postprocedural pain sacubitril 24 mg / valsartan 26 mg oral tablet (8 sources) Angiotensin 2 Receptor Monique Start: 07-28-2025 End: 07-28-2025 Sacubitril-Valsartan 24-26 mg tablet Discontinued 1 {tbl} PO every other day July 28, 2025 12:00am July 28, 2025 10:39am Start: 02-03-2023 End: 10-28-2024 Sacubitril-Valsartan (Entres to) 24-26 mg tablet Discontinued 1 {tbl} PO DAILY February 03, 2023 12:00am October 28, 2024 2:22pm BP Problems Active Problems Problem Classification Problem Date Documented Date Episodic/Chronic Disorders of lipid metabolism (3 sources) Hyperlipidemia; Translations: [Hyperlipidemia, unspecified] Onset: 08-29-2025 07-28-2025 Chronic Essential hypertension (20 sources) Hypertensive disorder; Translations: [Essential (primary) hypertension] Onset: 08-29-2025 11-18-2022 Chronic Nonspecific chest pain (9 sources) Chest pain; Translations: [Chest pain, unspecified] Onset: 08-29-2025 05-31-2025 Episodic Osteoarthritis (20 sources) Primary gonarthrosis, bilateral; Translations: [Bilateral primary osteoarthritis of knee] Chronic Other aftercare (15 sources) Follow-up status; Translations: [Encounter for other orthopedic aftercare] 12-03-2022 Episodic Other aftercare (5 sources) Encounter for other orthopedic aftercare; Translations: [Unspecified orthopedic aftercare] 12-03-2022 Episodic Other connective tissue disease (12 sources) History of total knee arthroplasty; Translations: [Presence of unspecified artificial knee joint] 11-19-2022 Chronic Other connective tissue disease (9 sources) Presence of unspecified artificial knee joint; Translations: [Knee joint replacement] 11-19-2022 Chronic Other connective tissue disease (4 sources) History of total hip arthroplasty; Translations: [Presence of unspecified artificial hip joint] 05-30-2025 Chronic Other diseases of kidney and ureters (7 sources) Acute renal insufficiency; Translations: [Disorder of kidney and ureter, unspecified] 02-18-2023 Episodic Other diseases of kidney and ureters (2 sources) Disorder of kidney and ureter, unspecified; Translations: [Unspecified disorder of kidney and ureter] 02-19-2023 Episodic Other lower respiratory disease (7 sources) Dyspnea on exertion; Translations: [Other forms of dyspnea] 05-31-2025 Episodic Other lower respiratory disease (2 sources) Other forms of dyspnea; Translations: [Other forms of dyspnea] Onset: 08-29-2025 Episodic Other nervous system disorders (19 sources) Acute postoperative pain; Translations: [Other acute postprocedural pain] 11-19-2022 Episodic Other screening for suspected conditions (not mental disorders or infectious disease) (10 sources) Serum creatinine raised; Translations: [Other specified abnormal findings of blood chemistry] Onset: 08-21-2025 02-18-2023 Episodic Susana-; endo-; and myocarditis; cardiomyopathy (except that caused by tuberculosis or sexually transmitted disease) (10 sources) Cardiomyopathy; Translations: [Cardiomyopathy, unspecified] Onset: 08-29-2025 11-15-2024 Chronic Residual codes; unclassified (1 source) Asymptomatic menopausal state; Translations: [Asymptomatic menopausal state] Onset: 08-08-2025 Episodic Past or Other Problems Problem Classification Problem Date Documented Da te Episodic/Chronic Other lower respiratory disease (1 source) Shortness of breath; Translations: [Shortness of breath] Onset: 11-28-2024 Episodic Results Test Name Value Interpretation Reference Range Facility Dexa Bone Density Studyon Dexa Bone Density Study [facility] Imaging Services [address] [place] [address] Dexa Bone Density Study MR#: [id number] Acct: [id number] Name: HILARY WATSON Rep #: [id number] : 1945 F 80 From: Cale Leslie MD PCP: Dr. Hallie Eli MD Status: REG CLI Study: Dexa Bone Density Study Date of Exam: 08/08/25 Exam# [id number] Ordering Dr: Hallie Eli MD PROCEDURE: DEXA BONE DENSITY STUDY 08/08/2025 REASON FOR EXAM: F, age 80 y/o . Postmenopausal. TECHNIQUE: Procedure Code: BDDBD Modality: DX Procedure: DEXA BONE DENSITY STUDY COMPARISON: None FINDINGS: BMD and T-SCORES Lumbar spine: 0.874 g/cm2, T-score -1.6 Levels: L1 through L4 Left femoral neck: 0.529 g/cm2, T-score -2.9 Left total hip: 0.668 g/cm2, T-score -2.2 Right femoral neck: 0.592 g/cm2, T-score -2.3 Right total hip: 0.673 g/cm2, T-score -2.2 The World Health Organization has defined the following categories based on bone density: Normal bone density: T-score equal to or greater than -1.0 Osteopenia: T-score between -1.0 and -2.5 Osteoporosis: T-score equal to or less than -2.5 FRAX (or Comparable) Fracture Risk Assessment: 10 Year Probability of Fracture: Major Osteoporotic Fracture: 16% Hip Fracture: 5% (Note: FRAX is not to be reported in setting of normal range bone density, osteoporosis on DEXA, known history of osteoporosis, prior osteoporotic hip or vertebral fracture, or for any patient undergoing pharmacological treatment for bone loss.) The National Osteoporosis Foundation (NOF) recommends pharmacological treatment for patients with a FRAX 10-year risk of 3% or higher for a hip fracture, or 20% or higher for a major osteoporotic fracture, to prevent osteoporosis and reduce fracture risk. The patient does meet the pharmacological treatment recommendations for prevention of osteoporosis. BD/Dexa Bone Density Study IMPRESSION: OSTEOPOROSIS. Recommend follow-up in 1 year. Reading Location: [facility] CC: Dr. Hallie Eli MD Sports Complex Attendant: Signed Normal [facility] Dexa Bone Density Study [facility] Imaging Services [address] [place] [address] [id number] Dexa Bone Density Study MR#: [id number] Acct: [id number] Name: HILARY WATSON Rep #: [id number] : 1945 F 80 From: Cale Leslie MD PCP: Dr. Hallie Eli MD Status: REG CLI Study: Dexa Bone Density Study Date of Exam: 08/08/25 Exam# [id number] Ordering Dr: Hallie Eli MD PROCEDURE: DEXA BONE DENSITY STUDY 08/08/2025 REASON FOR EXAM: F, age 80 y/o . Postmenopausal. TECHNIQUE: Procedure Code: BDDBD Modality: DX Procedure: DEXA BONE DENSITY STUDY COMPARISON: None FINDINGS: BMD and T-SCORES Lumbar spine: 0.874 g/cm2, T-score -1.6 Levels: L1 through L4 Left femoral neck: 0.529 g/cm2, T-score -2.9 Left total hip: 0.668 g/cm2, T-score -2.2 Right femoral neck: 0.592 g/cm2, T-score -2.3 Right total hip: 0.673 g/cm2, T-score -2.2 The World Health Organization has defined the following categories based on bone density: Normal bone density: T-score equal to or greater than -1.0 Osteopenia: T-score between -1.0 and -2.5 Osteoporosis: T-score equal to or less than -2.5 FRAX (or Comparable) Fracture Risk Assessment: 10 Year Probability of Fracture: Major Osteoporotic Fracture: 16% Hip Fracture: 5% (Note: FRAX is not to be reported in setting of normal range bone density, osteoporosis on DEXA, known history of osteoporosis, prior osteoporotic hip or vertebral fracture, or for any patient undergoing pharmacological treatment for bone loss.) The National Osteoporosis Foundation (NOF) recommends pharmacological treatment for patients with a FRAX 10-year risk of 3% or higher for a hip fracture, or 20% or higher for a major osteoporotic fracture, to prevent osteoporosis and reduce fracture risk. The patient does meet the pharmacological treatment recommendations for prevention of osteoporosis. BD/Dexa Bone Density Study IMPRESSION: OSTEOPOROSIS. Recommend follow-up in 1 year. Reading [facility] CC: Dr. Hallie Eli MD Sports Complex Attendant: Signed Normal [facility] Cardiology Visit Reporton Cardiology Visit Report [facility] [address] [place] [address] OFFICE VISIT Date of Service: 07/28/25 MR#: [id number] Acct: [id number] Name: HILARY MENA Rep #: [id number] : 1945 Provider: STEPHAN Ramirez Age/Sex: 80/F [place] [facility] Status: Signed HPI HPI History of Present Illness Details: The patient is a 80-year-old female with HTN and hyperlipidemia presenting with daily postprandial heartburn. She is accompanied by her son, who provides additional history. She reports a burning sensation in her upper abdomen every day after meals, which sometimes persists into the night and interferes with sleep. She describes a sensation of acidity after eating, particularly after breakfast, and notes that drinking water does not alleviate the symptoms. She does have epigastric pain that radiates up to her chest. She admits to some shortness of breath, as well as lightheadedness or dizziness. She has a history of reduced ejection fraction, which has since normalized. She is currently taking Entresto every 2???3 days, though she previously discontinued it for 3???4 months due to fatigue. She is also taking a cholesterol-lowering medication. Intake Vital Signs 05/31/25 10:23 07/28/25 07:56 Height 5 ft 4 in 5 ft 4 in Weight: 136 lb 131 lb BMI 23.3 22.4 BP 147/80 H 127/80 H Blood Pressure Location Lt brachial Lt brachial Position Sitting Sitting Respiration 16 16 Pulse 62 67 Pulse Source NIBP Monitor Pulse Oximetry (%) 98 Oxygen Delivery Method room air Intake Visit Reasons: 6 WK FU Costumed Character Required: Yes Costumed Character Language: Citizen [place] Accompanied by: Son Is patient in pain?: No Allergies No Known Allergies Allergy (Verified 05/31/25 10:27) Medications ???Medication ???Instructions ???Recorded ???Confirmed ???Type atorvastatin 20 mg tablet 20 mg PO QHS 07/28/25 07/28/25 His tory cholecalciferol (vitamin D3) 250 250 mcg PO QDAY 07/28/25 07/28/25 History mcg (10,000 unit) capsule losartan 25 mg tablet 25 mg PO QDAY #90 tabs 07/28/25 Rx Ejection fraction %: 60 Have you fallen in the past year?: No Nurse's Note: Pt is only taking the Valsartan when she feels like it's necessary. Typically every other day, but sometimes every 3 days. [facility] Medical History (Updated 07/28/25 @ 10:49 by Tejal ROTHMAN, PA) Hyperlipidemia Cardiomyopathy Wears glasses Wears partial dentures Diabetes Non-smoker Pain Edema Weight loss Hypertension Surgical History S/P total hip arthroplasty History of total left knee replacement Hx of right cataract extraction Hx of left cataract extraction Social History Smoking Status: Never smoker ROS Const Const: Positive for headache(s) (A few times a week); Negative for fatigue or weakness Eyes Eyes: Negative for change in vision ENT ENT: Positive for headache(s) (A few times a week) and dizziness; Negative for Nosebleed/epistaxis or balance problems Cardio Chest Pain: Yes Palpitations: No Edema: None Resp Respiratory: Positive for SOB with activity GI GI: Positive for heartburn; Negative nausea, vomiting or bright, red blood in stools : Negative for hematuria Musc Musc: Negative for balance problems Neuro Neuro: Positive for dizziness, lightheadedness and headache(s) (A few times a week); Negative for syncope or weakness Endo Endo: Negative for fatigue Cardiology Exam Const Appearance: cooperative, no acute distress and well developed Orientation: alert, awake and oriented x3 Head Head: normocephalic and atraumatic Mouth: moist mucous membranes Eyes General: appearance normal, both eyes and all related structures Conjunctivae: conjunctivae normal Pupils: PERRL EOM: EOM intact bilaterally Neck Neck: normal visual inspection, no lymphadenopathy and no JVD Carotids: Negative bruit Neck Mass: Negative Neck mass Chest Chest inspection: normal inspection of the chest and symmetric chest movement Auscultation: Bilateral: Clear to Auscultation Cardio Palpation: normal PMI Rate: regular rate Rhythm: regular rhythm Heart sounds: S1 normal and S2 normal; Negative rub, gallop or murmur GI GI: normal to inspection, soft, no hepatosplenomegaly and bowel sounds present; Negative tender Neuro General: patient alert, patient awake, patient oriented x3, CN's II-XI intact bilaterally and moves all extremities Extremities Pulses: Normal: Right Posterior Tibial Pulse, Left Posterior Tibial Pulse, Right Radial Pulse and Left Radial Pulse Lower Extremity Edema: None: Bilateral Psych Psychological: normal affect Supplemental Info Supp (more content not included)... Normal [facility] Echo Completeon 07-21-2025 Echo [facility] [place] [place] [address] Echo Complete 07/21/25 1300 MR#: [id number] Acct: [id number] Name: HILARY MENA Rep #: [id number] : 1945 80 From: Dylan Jason MD Attending Dr: STEPHAN Brambila Status: REG CLI Ordering Dr: Tejal Nair Date: 06/27 04/19 Location: [facility] Sex: F H Admitted: Reason For Study Reason For Study: CHEST PAIN Procedure This was a 2D Doppler, Color Flow transthoracic echocardiogram. Exam performed in department. Left Ventricle Normal LV size. Left ventricular systolic function is normal. The left ventricular ejection fraction is 60 %. No evidence for diastolic dysfunction. No regional wall motion abnormalities noted. Right Ventricle Normal RV size. Normal systolic function. Atria Normal left atrium. Normal right atrium. Mitral Valve There is Mild focal posterior mitral annular calcification. Trivial mitral valve insufficiency. Tricuspid Valve Normal tricuspid valve. Trivial tricuspid valve insufficiency. Aortic Valve Trisinus/trileaflet aortic valve. Pulmonic Valve Normal pulmonic valve. Great Vessels Normal sized aortic root. Pericardium/Pleural No pericardial effusion. MMode/2D Measurements Calculations LVIDd: 4.1 cm IVSd: 0.93 cm Ao root diam: 3.1 cm LVIDs: 2.8 cm LVPWd: 0.93 cm RVDd: 2.7 cm FS: 31.3 % asc Aorta Diam: 3.2 cm LAV(MOD-bp): 50.0 ml LVAd ap4: 18.7 cm2 LAV(MOD-bp) Indexed: 30.1 ml/m2 LVLd ap4: 6.4 cm LAV(MOD-sp2): 50.4 ml EDV(MOD-sp4): 47.1 ml LAV(MOD-sp4): 49.6 ml EDV(sp4-el): 46.5 ml LVAs ap4: 10.1 cm2 LVLs ap4: 5.3 cm ESV(MOD-sp4): 17.4 ml ESV(sp4-el): 16.3 ml EF(MOD-sp4): 63.1 % EF(sp4-el): 64.9 % LVAd ap2: 13.8 cm2 SV(MOD-sp4): 29.7 ml SV(MOD-sp2): 16.7 ml LVLd ap2: 5.7 cm SI(MOD-sp4): 17.9 ml/m2 SI(MOD-sp2): 10.1 ml/m2 EDV(MOD-sp2): 28.9 ml EDV(sp2-el): 28.7 ml LVAs ap2: 8.2 cm2 LVLs ap2: 5.0 cm ESV(MOD-sp2): 12.2 ml ESV(sp2-el): 11.3 ml EF(MOD-sp2): 57.9 % SV(sp4-el): 30.2 ml LA dimension(2D): 4.1 cm LA A4 area: 18.5 cm2 RA A4 area: 11.0 cm2 TAPSE: 2.0 cm Time Measurements MV dec time: 0.29 sec Doppler Measurements Calculations MV E max rose mary: 52.7 cm/sec Lat Peak E' Rose Mary: 5.6 cm/sec Med Peak E' Rose Mary: 4.9 cm/sec MV A max rose mary: 81.0 cm/sec E/E' lat: 9.5 E/E' med: 10.8 MV E/A: 0.65 MV V2 max: 99.2 cm/sec MV P1/2t max rose mary: 64.7 cm/sec Ao V2 max: 130.0 cm/sec MV max P.9 mmHg MV P1/2t: 92.5 msec Ao max P.8 mmHg MV V2 mean: 49.5 cm/sec Ao V2 mean: 91.9 cm/sec MV mean P.1 mmHg MV dec slope: 204.9 cm/sec2 Ao mean P.7 mmHg MV V2 VTI: 24.3 cm MVA(P1/2t): 2.4 cm2 Ao V2 VTI: 27.9 cm AV (velocity ratio): 0.67 LV V1 max: 91.5 cm/sec PA V2 max: 75.0 cm/sec TR max rose mary: 224.0 cm/sec LV V1 max P.4 mmHg TR max P.3 mmHg LV V1 mean P.6 mmHg LV V1 mean: 58.7 cm/sec LV V1 VTI: 18.6 cm ECHO/Echo Complete Interpretation Summary The left ventricular ejection fraction is 60 %. No evidence for diastolic dysfunction. There is Mild focal posterior mitral annular calcification. Ordering Physician: Tejal Nair Referring Physician: Hallie Eli Performed By: Karey Ward, ELIASCS, RVT 07/21/25 1528 Date Dylan Jason MD CC: Dr. Hallie Eli MD; STEPHAN Brambila Date Dictated: 07/21/25 1300 Date Transcribed: 07/21/251527 Sports Complex Attendant: Signed Normal [facility] Echocardiogram study reportO rdered By: Dylan Jason on 07-21-2025 Study report [facility] Cardi[facility] Services [address] [place] [address] Echo Complete 07/21/25 1300 MR#: [id number] Acct: [id number] Name: HILARY MENA Rep #:[id number] : 1945 80 From: Dylan Casiano Attending Dr: STEPHAN Brambila Status: REG CLI Ordering Dr: Tejal Nair Date: 07/21/25 Location: [facility] Sex: F H Admitted: Reason For Study Reason For Study: CHEST PAIN Procedure This was a 2D Doppler, Color Flow transthoracic echocardiogram. Exam performed in department. Left Ventricle Normal LV size. Left ventricular systolic function is normal. The left ventricular ejection fraction is 60 %. No evidence for diastolic dysfunction. No regional wall motion abnormalities noted. Right Ventricle Normal RV size. Normal systolic function. Atria Normal left atrium. Normal right atrium. Mitral Valve There is Mild focal posterior mitral annular calcification. Trivial mitral valveinsufficiency. Tricuspid Valve Normal tricuspid valve. Trivial tricuspid valve insufficiency. Aortic Valve Trisinus/trileaflet aortic valve. Pulmonic Valve Normal pulmonic valve. Great Vessels Normal sized aortic root. Pericardium/Pleural No pericardial effusion. MMode/2D Measurements & Calculations LVIDd: 4.1 cm IVSd: 0.93 cm Ao root diam: 3.1 cm LVIDs: 2.8 cm LVPWd: 0.93 cm RVDd: 2.7 cm FS: 31.3 % asc Aorta Diam: 3.2 cm LAV(MOD-bp): 50.0 ml LVAd ap4: 18.7 cm2 LAV(MOD-bp) Indexed: 30.1 ml/m2 LVLd ap4: 6.4 cm LAV(MOD-sp2): 50.4 ml EDV(MOD-sp4): 47.1 ml LAV(MOD-sp4): 49.6 ml EDV(sp4-el): 46.5 ml LVAs ap4: 10.1 cm2 LVLs ap4: 5.3 cm ESV(MOD-sp4): 17.4 ml ESV(sp4-el): 16.3 ml EF(MOD-sp4): 63.1 % EF(sp4-el): 64.9 % LVAd ap2: 13.8 cm2 SV(MOD-sp4): 29.7 ml SV(MOD-sp2): 16.7 ml LVLd ap2: 5.7 cm SI(MOD-sp4): 17.9 ml/m2 SI(MOD-sp2): 10.1 ml/m2 EDV(MOD-sp2): 28.9 ml EDV(sp2-el): 28.7 ml LVAs ap2: 8.2 cm2 LVLs ap2: 5.0 cm ESV(MOD-sp2): 12.2 ml ESV(sp2-el): 11.3 ml EF(MOD-sp2): 57.9 % SV(sp4-el): 30.2 ml LA dimension(2D): 4.1 cm LA A4 area: 18.5 cm2 RA A4 area: 11.0 cm2 TAPSE: 2.0 cm Time Measurements MV dec time: 0.29 sec Doppler Measurements & Calculations MV E max rose mary: 52.7 cm/sec Lat Peak E' Rose Mary: 5.6 cm/sec Med Peak E' Rose Mary: 4.9 cm/sec MV A max rose mary: 81.0 cm/sec E/E' lat: 9.5 E/E' med: 10.8 MV E/A: 0.65 MV V2 max: 99.2 cm/sec MV P1/2t max rose mary: 64.7 cm/sec Ao V2 max: 130.0 cm/sec MV max P.9 mmHg MV P1/2t: 92.5 msec Ao max P.8 mmHg MV V2 mean: 49.5 cm/sec Ao V2 mean: 91.9 cm/sec MV mean P.1 mmHg MV dec slope: 204.9 cm/sec2 Ao mean P.7 mmHg MV V2 VTI: 24.3 cm MVA(P1/2t): 2.4 cm2 Ao V2 VTI: 27.9 cm AV (velocity ratio): 0.67 LV V1 max: 91.5 cm/sec PA V2 max: 75.0 cm/sec TR max rose mary: 224.0 cm/sec LV V1 max P.4 mmHg TR max P.3 mmHg LV V1 mean P.6 mmHg LV V1 mean: 58.7 cm/sec LV V1 VTI: 18.6 cm ECHO/Echo Complete Interpretation Summary The left ventricular ejection fraction is 60 %. No evidence for diastolic dysfunction. There is Mild focal posterior mitral annular calcification. Ordering Physician: Tejal Nair Referring Physician: Hallie Eli Performed By: Karey Ward, RDCS, RVT 07/21/25 1528 Date _ Dylan Jason MD CC: Dr. Hallie Eli MD; STEPHAN Brambila ~ Date Dictated: 07/21/25 1300 Date Transcribed: 07/21/251527 [employer] Attendant: Signed [facility] Work Phone: Absolute lymphocyte countOrd ered By: Tejal Nair on 05-31-2025 Lymphocytes Auto (Unsp spec) [#/Vol] 1.69 10*3/uL 0.83-4.51 [facility] Absolute neutrophil countOrd ered By: Tejal Nair on 05-31-2025 Neutrophils (Bld) [#/Vol] 4.1 10*3/uL 2.0-7.7 [facility] Anion gap in Serum or Plasma Ordered By: Tejal Nair on 05-31-2025 Anion gap [Moles/Vol] 13 mmol/L 5-15 [facility] Automated lymphocyte count a s percentage of total leukocytesOrdered By: Tejal Nair on 05-31-2025 Lymphocytes/100 WBC Auto (Unsp spec) 24.9 % 19-41 [facility] BUN/creatinine ratioOrdered By: Tejal Nair on 05-31-2025 Urea nitrogen/Creatinine [Mass ratio] 13.5 mg/mg 10-20 [facility] Basophil percentageOrdered B y: Tejal Nair on 05-31-2025 Basophils/100 WBC (Bld) 0.7 % 0-1 [facility] Bilirubin, totalOrdered By: Tejal Nair on 05-31-2025 Bilirubin [Mass/Vol] 0.46 mg/dL 0.00-1.30 [facility] CBC W/Diff, Automatedon 08-0 6-2024 Absolute Lymph 1.69 X10 3/uL Normal 0.83-4.51 [facility] Comment on above: Performed By: #### L 100.0100, L500.4050, L500.4100, [id number] #### [facility] Laboratory [address] [place], [address] Absolute Neut 4.1 X10 3/uL Normal 2.0-7.7 [facility] Comment on above: Performed By: #### L 100.0100, L500.4050, L500.4100, [id number] #### [facility] [address] [place], [address] Basophils/100 WBC (Bld) 0.7 % Normal 0-1 [facility] Comment on above: Performed By: #### L 100.0100, L500.4050, L500.4100, [id number] #### [facility] Laboratory [address] [place], [address] Eosinophils/100 WBC (Bld) 4.3 % Normal 0-5 [facility] Comment on above: Performed By: #### L 100.0100, L500.4050, L500.4100, [id number] #### [facility] [address] [place], [address] Erythrocyte distribution width (RBC) [Ratio] 13.0 % Normal 11.6-14.6 [facility] Comment on above: Performed By: #### L 100.0100, L500.4050, L500.4100, [id number] #### [facility] Laboratory [address] [place], [address] Hematocrit (Bld) [Volume fraction] 42.3 % Normal 37-47 [facility] Comment on above: Performed By: #### L 100.0100, L500.4050, L500.4100, [id number] #### [facility] [address] [place], [address] Hemoglobin (Bld) [Mass/Vol] 13.7 g/dL Normal 12.0-15.0 [facility] Comment on above: Performed By: #### L 100.0100, L500.4050, L500.4100, [id number] #### [facility] Laboratory [address] [place], [address] IG% 0.400 Normal 0.0-0.9 [facility] Comment on above: Result Comment: IG% - Immature Granulocytes (promyelocytes, myelocytes and metamyelocytes) > 1% indicates that a LEFT SHIFT is Present. Performed By: #### L 100.0100, L500.4050, L500.4100, L503.7505 #### [facility] Laboratory [address] [place], [address] Lymphocytes/100 WBC (Bld) 24.9 % Normal 19-41 [facility] Comment on above: Performed By: #### L 100.0100, L500.4050, L500.4100, [id number] #### [facility] [address] [place], [address] MCH (RBC) [Entitic mass] 28.8 pg Normal 27.0-32.0 [facility] Comment on above: Performed By: #### L 100.0100, L500.4050, L500.4100, L503.7505 #### [facility] Laboratory [address] [place], [address] MCHC (RBC) [Mass/Vol] 32.4 g/dL Normal 32-36 [facility] Comment on above: Performed By: #### L 100.0100, L500.4050, L500.4100, [id number] #### [facility] Laboratory [address] [place], [address] MCV (RBC) [Entitic vol] 88.9 fL Normal 81-99 [facility] Comment on above: Performed By: #### L 100.0100, L500.4050, L500.4100, [id number] #### [facility] Laboratory [address] [place], [address] Monocytes/100 WBC (Bld) 8.8 % Normal 0-10 [facility] Comment on above: Performed By: #### L 100.0100, L500.4050, L500.4100, [id number] #### [facility] Laboratory [address] [place], [address] Neutrophils/100 WBC (Bld) 60.9 % Normal 47-70 [facility] Comment on above: Performed By: #### L 100.0100, L500.4050, L500.4100, [id number] #### [facility] Laboratory [address] [place], [address] Nucleated RBC (Bld) [#/Vol] 0 10*3/uL Normal 0-5 [facility] Comment on above: Performed By: #### L 100.0100, L500.4050, L500.4100, [id number] #### [facility] Laboratory [address] [place], [address] Platelet mean volume (Bld) [Entitic vol] 11.0 fL Normal 6.2-12.0 [facility] Comment on above: Performed By: #### L 100.0100, L500.4050, L500.4100, L503.7505 #### [facility] Laboratory [address] [place], [address] Platelets (Bld) [#/Vol] 209 10*3/uL Normal 150-450 [facility] Comment on above: Performed By: #### L 100.0100, L500.4050, L500.4100, [id number] #### [facility] Laboratory [address] [place], [address] RBC (Bld) [#/Vol] 4.76 10*6/uL Normal 4.2-5.4 [facility] Comment on above: Performed By: #### L 100.0100, L500.4050, L500.4100, L503.7505 #### [facility] Laboratory [address] [place], [address] RDW SD 42.5 fl Normal 35.1-43.9 [facility] Comment on above: Performed By: #### L 100.0100, L500.4050, L500.4100, L503.7505 #### [facility] Laboratory [address] [place], [address] WBC (Bld) [#/Vol] 6.8 10*3/uL Normal 4.4-11.0 [facility] Comment on above: Performed By: #### L 100.0100, L500.4050, L500.4100, L503.7505 #### [facility] Laboratory [address] [place], [address] Calculated very low density lipoprotein (VLDL) cholesterol measurementOrdered By: Tejal Nair on 05-31-2025 Calculated very low density lipoprotein (VLDL) cholesterol measurement 50 mg/dL High 5-40 [facility] Carbon dioxide, total [Moles /volume] in Central venous bloodOrdered By: Tejal Nair on 05-31-2025 CO2 [Moles/Vol] 27.4 mmol/L 21.0-32.0 [facility] Cardiology Visit Reporton Cardiology Visit Report [facility] [address] [place], [place] [address] OFFICE VISIT Date of Service: 05/31/25 MR#: [id number] Acct: [id number] Name: HIALRY MENA Rep #: [id number] : 1945 Provider: STEPHAN Ramirez Age/Sex: 80/F [place] [facility] [place] Status: Signed HPI HPI History of Present Illness Details: Hilary Velazquez is a 80-year-old female that established with us in October 2024 with concerns over blood pressure from her primary care doctor. She does also have a history of diabetes and hyperlipidemia. Son sts that 2 years ago she was in [facility] and was noted to have low heart function. Son does not have these medical records. He is not aware of what her ejection fraction was. He is only aware that she was started on medication and has since improved. She was fatigued. She was noted to be anemic. She was on entresto and has not taken this for a while. PCP wanted her to be seen by us to see if she needed this medication as she has not been on it for a while. She has returned from [facility]. She does now have insurance and son would like to pursue the echocardiogram and the stress test that was recommended when I seen her in the office in October. Son notes that patient while in [facility] was feeling well. However the last several weeks he has noted some increased shortness of breath with exertion and chest pain with rest and exertion. It is short lasting. She does not have any swelling. She does not have any lightheadedness or dizziness. She does not have any lower extremity edema. Intake Vital Signs 10/28/24 13:19 05/31/25 10:23 Height 5 ft 4 in 5 ft 4 in Weight: 133 lb 136 lb BMI 22.8 23.3 BP 126/78 H 147/80 H Blood Pressure Location Lt brachial Lt brachial Position Sitting Sitting Respiration 18 16 Pulse 68 62 Pulse Source Monitor NIBP Pulse Oximetry (%) 98 Intake Visit Reasons: 5 M FU Costumed Character Required: Yes Costumed Character Language: Citizen [place] Accompanied by: Son Is patient in pain?: No Allergies No Known Allergies Allergy (Verified 05/31/25 10:27) Medications ???Medication ???Instructions ???Recorded ???Confirmed ???Type NK 05/31/25 05/31/25 History Have you fallen in the past year?: No Nurse's Note: Was on atorvastatin, metformin and entresto. Has not taken any meds for about 3 months [facility] Medical History Cardiomyopathy Wears glasses Wears partial dentures Diabetes Non-smoker Pain Edema Weight loss Hypertension Surgical History S/P total hip arthroplasty History of total left knee replacement Hx of right cataract extraction Hx of left cataract extraction Social History Smoking Status: Never smoker ROS Const Const: Positive for fatigue; Negative for weakness Eyes Eyes: Negative for change in vision ENT ENT: Negative for dizziness or balance problems Cardio Chest Pain: Yes (Occasional chest tightness) Palpitations: No Edema: None Resp Respiratory: Positive for SOB with activity (Occasionally); Negative for SOB at rest or SOB orthopnea SOB lying down GI GI: Negative nausea or heartburn Musc Musc: Negative for balance problems Neuro Neuro: Negative for dizziness, lightheadedness, near syncope, syncope or weakness Endo Endo: Positive for fatigue Cardiology Exam Const Appearance: cooperative, no acute distress and well developed Orientation: alert, awake and oriented x3 Head Head: normocephalic and atraumatic Mouth: moist mucous membranes Eyes General: appearance normal, both eyes and all related structures Conjunctivae: conjunctivae normal Pupils: PERRL EOM: EOM intact bilaterally Neck Neck: normal visual inspection, no lymphadenopathy and no JVD Carotids: Negative bruit Neck Mass: Negative Neck mass Chest Chest inspection: normal inspection of the chest and symmetric chest movement Auscultation: Bilateral: Clear to Auscultation Cardio Palpation: normal PMI Rate: regular rate Rhythm: regular rhythm Heart sounds: S1 normal and S2 normal; Negative rub, gallop or murmur GI GI: normal to inspection, soft, no hepatosplenomegaly and bowel sounds present; Negative tender Neuro General: patient alert, patient awake, patient oriented x3, CN's II-XI intact bilaterally and moves all extremities Extremities Pulses: Normal: Right Posterior Tibial Pulse, Left Posterior Tibial Pulse, Right Radial Pulse and Left Radial Pulse Lower Extremity Edema: None: Bilateral Psych Psychological: normal affect Assessment and Plan Assessment and Plan (1) HTN (hypertension): Status: Chronic (2) Cardiomyopathy: Status: Acute (3) FAYE (dyspnea on exertion): Sta (more content not included)... Normal [facility] Chloride assayOrdered By: Julia Nair on 05-31-2025 Chloride [Moles/Vol] 100 mmol/L 98-108 [facility] Comprehensive Metabolic Prof ilon 05-31-2025 Albumin [Mass/Vol] 4.3 g/dL Normal 3.4-4.8 [facility] Comment on above: Performed By: #### L 100.0100, L500.4050, L500.4100, L503.7505 #### [facility] Laboratory [address] [place], [address] Albumin/Globulin [Mass ratio] 1.3 {ratio} Normal 0.9-2.4 [facility] Comment on above: Performed By: #### L 100.0100, L500.4050, L500.4100, L503.7505 #### [facility] Laboratory [address] [place], [address] ALK PHOS 111 U/L High 35-104 [facility] Comment on above: Performed By: #### L 100.0100, L500.4050, L500.4100, L503.7505 #### [facility] Laboratory [address] [place], [address] ALT [Catalytic activity/Vol] 7 U/L Normal <=34 [facility] Comment on above: Performed By: #### L 100.0100, L500.4050, L500.4100, L503.7505 #### [facility] [address] [place], [address] AST [Catalytic activity/Vol] 18 U/L Normal <=31 [facility] Comment on above: Performed By: #### L 100.0100, L500.4050, L500.4100, L503.7505 #### [facility] Laboratory [address] [place], [address] Bilirubin [Mass/Vol] 0.46 mg/dL Normal 0.00-1.30 [facility] Comment on above: Performed By: #### L 100.0100, L500.4050, L500.4100, L503.7505 #### [facility] Laboratory [address] [place], [address] BUN/CRE 13.5 RATIO Normal 10-20 [facility] Comment on above: Performed By: #### L 100.0100, L500.4050, L500.4100, L503.7505 #### [facility] [address] [place], [address] Calcium [Mass/Vol] 9.6 mg/dL Normal 7.6-11.0 [facility] Comment on above: Performed By: #### L 100.0100, L500.4050, L500.4100, L503.7505 #### [facility] [address] [place], [address] Chloride [Moles/Vol] 100 mmol/L Normal 98-108 [facility] Comment on above: Performed By: #### L 100.0100, L500.4050, L500.4100, L503.7505 #### [facility] Laboratory [address] [place], [address] CO2 [Moles/Vol] 27.4 mmol/L Normal 21.0-32.0 [facility] Comment on above: Performed By: #### L 100.0100, L500.4050, L500.4100, L503.7505 #### [facility] Laboratory [address] [place], [address] Creatinine [Mass/Vol] 1.46 mg/dL High 0.70-1.20 [facility] Comment on above: Performed By: #### L 100.0100, L500.4050, L500.4100, L503.7505 #### [facility] Laboratory [address] [place], [address] GAP 13 Normal 5-15 [facility] Comment on above: Performed By: #### L 100.0100, L500.4050, L500.4100, L503.7505 #### [facility] Laboratory [address] [place], [address] GFR/1.73 sq M.predicted among non-blacks MDRD (S/P/Bld) [Vol rate/Area] 37 mL/min/{1.73_m2} Low >60 [facility] Comment on above: Result Comment: mL/m in/1.73m2 CKD-EPI Creatinine Equation (2020) Performed By: #### L 100.0100, L500.4050, L500.4100, L503.7505 #### [facility] Laboratory [address] [place], [address] Globulin (S) [Mass/Vol] 3.4 g/dL Normal 2.2-4.2 [facility] Comment on above: Performed By: #### L 100.0100, L500.4050, L500.4100, L503.7505 #### [facility] Laboratory [address] [place], [address] Glucose [Mass/Vol] 96 mg/dL Normal 70-99 [facility] Comment on above: Performed By: #### L 100.0100, L500.4050, L500.4100, L503.7505 #### [facility] Laboratory [address] [place], [address] Potassium [Moles/Vol] 4.4 mmol/L Normal 3.3-5.1 [facility] Comment on above: Performed By: #### L 100.0100, L500.4050, L500.4100, L503.7505 #### [facility] [address] [place], [address] Sodium [Moles/Vol] 141 mmol/L Normal 133-145 [facility] Comment on above: Performed By: #### L 100.0100, L500.4050, L500.4100, L503.7505 #### [facility] [address] [place], [address] T PROT 7.7 g/dL Normal 5.9-8.4 [facility] Comment on above: Performed By: #### L 100.0100, L500.4050, L500.4100, L503.7505 #### [facility] Laboratory [address] [place], [address] Urea nitrogen [Mass/Vol] 20 mg/dL High 4-19 [facility] Comment on above: Performed By: #### L 100.0100, L500.4050, L500.4100, L503.7505 #### [facility] Laboratory [address] [place], [address] Eosinophil percentageOrdered By: Tejal Nair on 05-31-2025 Eosinophils/100 WBC (Bld) 4.3 % 0-5 [facility] Erythrocyte distribution wid th ratioOrdered By: Tejal Nair on 05-31-2025 Erythrocyte distribution width (RBC) [Ratio] 13.0 % 11.6-14.6 [facility] Erythrocyte distribution wid th standard deviationOrdered By: Tejal Nair on 05-31-2025 Erythrocyte distribution width (RBC) [Ratio] 42.5 fl 35.1-43.9 [facility] Glomerular filtration rate ( GFR) estimation/1.73 sq m using serum, plasma, or whole bOrdered By: Tejal Nair on 05-31-2025 GFR/1.73 sq M.predicted among non-blacks MDRD (S/P/Bld) [Vol rate/Area] 37 mL/min/{1.73_m2} Low >60 [facility] Comment on above: mL/min/1.73m2 CKD-EP I Creatinine Equation (2020) Hematocrit Auto (Bld) [Volum e fraction]Ordered By: Tejal Nair on 05-31-2025 Hematocrit (Bld) [Volume fraction] 42.3 % 37-47 [facility] Hemoglobin measurementOrdere d By: Tejal Nair on 05-31-2025 Hemoglobin (Bld) [Mass/Vol] 13.7 g/dL 12.0-15.0 [facility] Immature granulocytes/100 WB C Auto (Bld)Ordered By: Tejal Nair on 05-31-2025 Immature granulocytes/100 WBC (Bld) 0.400 % 0.0-0.9 [facility] Comment on above: IG% - Immature Granu locytes (promyelocytes, myelocytes and metamyelocytes) > 1% indicates that a LEFT SHIFT is Present. LDL calc ser/plasOrdered By: Tejal Nair on 05-31-2025 Cholesterol in LDL [Mass/Vol] 117 mg/dL [facility] Comment on above: Sncacnoglg=006-058 m g/dL & Higher Mvnz=565 mg/dL or greaterFriedwald Equation for LDL-C Laboratory - Chemistry and C hemistry - challengeOrdered By: Tejal Nair on 05-31-2025 AST [Catalytic activity/Vol] 18 U/L <32 [facility] Lipid Profileon 05-31-2025 CHOL:HDL 5.83 Normal [facility] Comment on above: Performed By: #### L 100.0100, L500.4050, L500.4100, L503.7505 #### [facility] Laboratory [address] [place], [place], [id number] Cholesterol [Mass/Vol] 201 mg/dL Normal <=200 [facility] Comment on above: Result Comment: Chol esterol level, Desirable <200 mg/dL Borderline high cholesterol 200-239 mg/dL High cholesterol >=240 mg/dL Recommendations of the NCEP Adult Treatment Panel for the following risk-cutoff thresholds for the [place] population. Performed By: #### L 100.0100, L500.4050, L500.4100, L503.7505 #### [facility] Laboratory [address] [place], [place], [id number] Cholesterol in HDL [Mass/Vol] 35 mg/dL Low [facility] Comment on above: Result Comment: Sneha onal Cholesterol Education Program (NCEP) guidelines: <40 mg/dL: Low HDL-cholesterol (major risk factor for CHD) >= 60 mg/dL: High HDL-cholesterol (negative risk factor for CHD) HDL-cholesterol is affected by a number of factors, e.g. smoking, exercise, hormones, sex and age. Performed By: #### L 100.0100, L500.4050, L500.4100, L503.7505 #### [facility] Laboratory [address] [place], [address] Cholesterol in LDL [Mass/Vol] 117 mg/dL Normal [facility] Comment on above: Result Comment: Bord wdocfv=345-256 mg/dL Higher Ngmd=546 mg/dL or greater Friedwald Equation for LDL-C Performed By: #### L 100.0100, L500.4050, L500.4100, L503.7505 #### [facility] [address] [place], [address] Cholesterol in VLDL [Mass/Vol] 50 mg/dL High 5-40 [facility] Comment on above: Performed By: #### L 100.0100, L500.4050, L500.4100, L503.7505 #### [facility] [address] [place], [address] Triglyceride [Mass/Vol] 248 mg/dL High [facility] Comment on above: Result Comment: The drugs N-Acetylcysteine and Metamizole may falsely depress this assay. Normal range: <150 mg/dL Borderline High: 150-199 mg/dL High: 200-499 mg/dL Very High: >500 mg/dL Performed By: #### L 100.0100, L500.4050, L500.4100, L503.7505 #### [facility] [address] [place], [address] MCV (mean corpuscular volume ) determinationOrdered By: Tejal Nair on 05-31-2025 MCV (RBC) [Entitic vol] 88.9 fL 81-99 [facility] Mean corpuscular hemoglobin (MCH) determinationOrdered By: Tejal Nair on 05-31-2025 MCH (RBC) [Entitic mass] 28.8 pg 27.0-32.0 [facility] Mean corpuscular hemoglobin concentration (MCHC) determinationOrdered By: Tejal Nair on 05-31-2025 MCHC (RBC) [Mass/Vol] 32.4 g/dL 32-36 [facility] Mean platelet volume determi nationOrdered By: Tejal Nair on 05-31-2025 Platelet mean volume (Bld) [Entitic vol] 11.0 fL 6.2-12.0 [facility] Monocyte percentageOrdered B y: Tejal Nair on 05-31-2025 Monocytes/100 WBC (Bld) 8.8 % 0-10 [facility] Natriuretic peptide.B prohor jah N-Terminal [Mass/volume] in Serum or PlasmaOrdered By: Tejal Nair on 05-31-2025 Natriuretic peptide.B prohormone N-Terminal [Mass/Vol] 190 pg/mL <1800 [facility] Comment on above: Heart Failure Unlike ly: < 300 pg/mLHeart Failure Likely< 50 Years: > 450 pg/mL50-75 Years: > 900 pg/mL>75 Years: > 1800 pg/mL Neutrophil percentageOrdered By: Tejal Nair on 05-31-2025 Neutrophils/100 WBC (Bld) 60.9 % 47-70 [facility] Nucleated red blood cell per centageOrdered By: Tejal Nair on 05-31-2025 Nucleated RBC/100 WBC (Bld) [Ratio] 0 % 0-5 [facility] Platelet countOrdered By: Julia Nair on 05-31-2025 Platelets (Bld) [#/Vol] 209 10*3/uL 150-450 [facility] Potassium measurement (mass/ volume)Ordered By: Tejal Nair on 05-31-2025 Potassium (Unsp spec) [Mass/Vol] 4.4 mmol/L 3.3-5.1 [facility] Pro- Brain NATRIURETIC PEPTI Suzie 05-31-2025 Natriuretic peptide B (Bld) [Mass/Vol] 190 pg/mL Normal <=1800 [facility] Comment on above: Result Comment: Hear t Failure Unlikely: < 300 pg/mL Heart Failure Likely < 50 Years: > 450 pg/mL 50-75 Years: > 900 pg/mL >75 Years: > 1800 pg/mL Performed By: #### L 100.0100, L500.4050, L500.4100, L503.7505 #### [facility] Laboratory [address] [place], [address] RBC Auto (Bld) [#/Vol]Ordere d By: Tejal Nair on 05-31-2025 RBC (Bld) [#/Vol] 4.76 10*6/uL 4.2-5.4 [facility] Screening total cholesterol/ high density lipoprotein (HDL) cholesterol ratioOrdered By: Tejal Nair on 05-31-2025 Cholesterol.total/Choles terol in HDL [Mass ratio] 5.83 {ratio} [facility] Serum creatinine measurement (mass/volume)Ordered By: Tejal Nair on 05-31-2025 Creatinine [Mass/Vol] 1.46 mg/dL High 0.70-1.20 [facility] Serum globulin measurementOr dered By: Tejal Nair on 05-31-2025 Globulin (S) [Mass/Vol] 3.4 g/dL 2.2-4.2 [facility] Serum glucose measurement (m ass/volume)Ordered By: Tejal Nair on 05-31-2025 Glucose [Mass/Vol] 96 mg/dL 70-99 [facility] Serum or plasma alanine wilkins otransferase (ALT) measurementOrdered By: Tejal Nair on 05-31-2025 ALT [Catalytic activity/Vol] 7 U/L <35 [facility] Serum or plasma albumin johnsno urement (mass/volume)Ordered By: Tejal Nair on 05-31-2025 Albumin [Mass/Vol] 4.3 g/dL 3.4-4.8 [facility] Serum or plasma albumin/glob ulin mass ratioOrdered By: Tejal Nair on 05-31-2025 Albumin/Globulin [Mass ratio] 1.3 {ratio} 0.9-2.4 [facility] Serum or plasma alkaline sherif sphatase measurementOrdered By: Tejal Nair on 05-31-2025 ALP [Catalytic activity/Vol] 111 U/L High 35-104 [facility] Serum or plasma calcium johnson urement (mass/volume)Ordered By: Tejal Nair on 05-31-2025 Calcium [Mass/Vol] 9.6 mg/dL 7.6-11.0 [facility] Serum or plasma cholesterol in HDL measurement (mass/volume)Ordered By: Tejal Nair on 05-31-2025 Cholesterol in HDL [Mass/Vol] 35 mg/dL Low >40 [facility] Comment on above: National Cholesterol Education Program (NCEP) guidelines:<40 mg/dL: Low HDL-cholesterol (major risk factor for CHD)>= 60 mg/dL: High HDL-cholesterol (negative risk factor for CHD)HDL-cholesterol is affected by a number of factors, e.g. smoking, exercise, hormones, sex and age. Serum or plasma cholesterol measurement (mass/volume)Ordered By: Tejal Nair on 05-31-2025 Cholesterol [Mass/Vol] 201 mg/dL <201 [facility] Comment on above: Cholesterol level, D esirable <200 mg/dLBorderline high cholesterol 200-239 mg/dLHigh cholesterol >=240 mg/dLRecommendations of the NCEP Adult Treatment Panel for the following risk-cutoff thresholds for the [place] population. Serum or plasma urea nitroge n measurement (mass/volume)Ordered By: Tejal Nair on 05-31-2025 Urea nitrogen [Mass/Vol] 20 mg/dL High 4-19 [facility] Sodium levelOrdered By: Ramez Nair on 05-31-2025 Sodium [Moles/Vol] 141 mmol/L 133-145 [facility] Total proteinOrdered By: Delano Nair on 05-31-2025 Protein [Mass/Vol] 7.7 g/dL 5.9-8.4 [facility] Triglycerides measurementOrd ered By: Tejal Nair on 05-31-2025 Triglyceride [Mass/Vol] 248 mg/dL High <199 [facility] Comment on above: The drugs N-Acetylcy steine and Metamizole may falsely depress this assay. Normal range: <150 mg/dLBorderline High: 150-199 mg/dLHigh: 200-499 mg/dLVery High: >500 mg/dL White blood cell (WBC) count Ordered By: Tejal Nair on 05-31-2025 WBC (Bld) [#/Vol] 6.8 10*3/uL 4.4-11.0 [facility] Cardiology Visit Reporton Cardiology Visit Report [facility] [place], [place] [address] OFFICE VISIT Date of Service: 10/28/24 MR#: [id number] Acct: [id number] Name: HILARY MENA Rep #: [id number] : 1945 Provider: STEPHAN Ramirez Age/Sex: 79/F [place] [facility] [place] Status: Signed HPI HPI History of Present Illness Details: Hilary Velazquez is a 79-year-old female that presents here today for a consultation from her primary care doctor for concerns over her blood pressure. She does also have a history of diabetes and hyperlipidemia. Son sts that 2 years ago she was in [facility] and was noted to have low heart function. Son does not have these medical records. He is not aware of what her ejection fraction was. He is only aware that she was started on medication and has since improved. She was fatigued. She was noted to be anemic. She was on entresto and has not taken this for a while. PCP wanted her to be seen by us to see if she needed this medication as she has not been on it for a while. She does not have any fatigue. She does sometimes have SOB. She does not have any orthopnea. She does not have any lightheadedness or dizziness. She does not have any lower extremity edema. Sometimes she has palpitations, this does not last long. It goes away quickly. Son notes that mom is leaving on 11/04 for 4 months. She [place] now a [place]. Intake Vital Signs 03/16/24 14:27 10/28/24 13:19 Height 5 ft 4 in 5 ft 4 in Weight: 133 lb BMI 22.8 BP 126/78 H Blood Pressure Location Lt brachial Position Sitting Respiration 18 Pulse 68 Pulse Source Monitor Pulse Oximetry (%) 98 Intake Visit Reasons: HTN- OK PER MMM Costumed Character Required: No Is patient in pain?: No Allergies No Known Allergies Allergy (Verified 10/28/24 13:20) Medications ???Medication ???Instructions ???Recorded ???Confirmed ???Type atorvastatin 20 mg tablet 20 mg PO QDAY 03/28/24 10/28/24 History Have you fallen in the past year?: No PFSH Medical History (Updated 11/15/24 @ 15:06 by Tejal ROTHMAN, PA) Cardiomyopathy Wears glasses Wears partial dentures Diabetes Non-smoker Pain Edema Weight loss Hypertension Surgical History History of total left knee replacement Hx of right cataract extraction Hx of left cataract extraction Social History Smoking Status: Never smoker ROS Const Const: Negative for fatigue, weakness, body ache or headache(s) Eyes Eyes: Negative for change in vision ENT ENT: Negative for headache(s), dizziness, hearing loss or balance problems Cardio Chest Pain: No Palpitations: Yes Edema: None Muscle aches with walking: None Resp Respiratory: Negative for SOB with activity, SOB at rest or SOB orthopnea SOB lying down GI GI: Negative nausea, vomiting or heartburn : Negative for hematuria Musc Musc: Negative for muscle aches/ myalgia, muscle weakness, joint pain or balance problems Neuro Neuro: Negative for dizziness, headache(s) or weakness Endo Endo: Negative for fatigue Cardiology Exam Const Appearance: cooperative, no acute distress and well developed Orientation: alert, awake and oriented x3 Head Head: normocephalic and atraumatic Mouth: moist mucous membranes Eyes General: appearance normal, both eyes and all related structures Conjunctivae: conjunctivae normal Pupils: PERRL EOM: EOM intact bilaterally Neck Neck: normal visual inspection, no lymphadenopathy and no JVD Carotids: Negative bruit Neck Mass: Negative Neck mass Chest Chest inspection: normal inspection of the chest and symmetric chest movement Auscultation: Bilateral: Clear to Auscultation Cardio Palpation: normal PMI Rate: regular rate Rhythm: regular rhythm Heart sounds: S1 normal and S2 normal; Negative rub, gallop or murmur GI GI: normal to inspection, soft, no hepatosplenomegaly and bowel sounds present; Negative tender Neuro General: patient alert, patient awake, patient oriented x3, CN's II-XI intact bilaterally and moves all extremities Extremities Pulses: Normal: Right Posterior Tibial Pulse, Left Posterior Tibial Pulse, Right Radial Pulse and Left Radial Pulse Lower Extremity Edema: None: Bilateral Psych Psychological: normal affect Supplemental Info Supplemental Information Labs: LDL Cholesterol 145 mg/dL (0-130) H HDL Cholesterol 42 mg/dL (40-) Cholesterol 223 mg/dL (200) H Triglycerides 178 mg/dL (-199) Diagnostics: No Data to Display Pulmonary: No Data to Display Past Visits: Cardiology Visit 10/28/24 Assessment and Plan Assessment and Plan (1) HTN (hypertensi (more content not included)... Normal [facility] Absolute lymphocyte countOrd ered By: Karina Jones on 12-23-2023 Lymphocytes Auto (Unsp spec) [#/Vol] 1.48 10*3/uL 0.83-4.51 [facility] Automated lymphocyte count a s percentage of total leukocytesOrdered By: Karina Jones on 12-23-2023 Lymphocytes/100 WBC Auto (Unsp spec) 27.4 % 19-41 [facility] Basophil percentageOrdered B y: Karina Jones on 12-23-2023 Basophils/100 WBC (Bld) 0.9 % 0-1 [facility] Bilirubin [Mass/Vol] 0.50 mg/dL 0.20-1.00 [facility] Comment on above: For patients on eltr ombopag therapy, use of Dimension Vancourt TBIL is not recommended. Chloride [Moles/Vol] 107 mmol/L 98-107 [facility] Cholesterol [Mass/Vol] 223 mg/dL <200 [facility] Comment on above: <200 mg/dL Desirable 200-240 mg/dL Borderline >240 mg/dL High Risk Eosinophils/100 WBC (Bld) 2.6 % 0-5 [facility] Glucose [Mass/Vol] 93 mg/dL 74-106 [facility] Hemoglobin (Bld) [Mass/Vol] 12.5 g/dL 12.0-15.0 [facility] Monocytes/100 WBC (Bld) 6.7 % 0-10 [facility] Neutrophils (Bld) [#/Vol] 3.4 10*3/uL 2.0-7.7 [facility] Neutrophils/100 WBC (Bld) 62.2 % 47-70 [facility] Potassium [Moles/Vol] 4.4 mmol/L 3.5-5.1 [facility] Protein [Mass/Vol] 7.9 g/dL 6.4-8.2 [facility] Sodium [Moles/Vol] 139 mmol/L 136-145 [facility] Triglyceride [Mass/Vol] 178 mg/dL <199 [facility] Comment on above: The drugs N-Acetylcy steine and Metamizole may falsely depress this assay.Serum Triglycerides Reference Interval Normal <150 mg/dL Borderline high 150 - 199 mg/dL High 200 - 499 mg/dL Very High > or = 500 mg/dL WBC (Bld) [#/Vol] 5.4 10*3/uL 4.4-11.0 [facility] Determination of erythrocyte mean corpuscular volume (MCV)Ordered By: Karina Jones on 12-23-2023 MCV (RBC) [Entitic vol] 91.0 fL 81-99 [facility] Erythrocyte distribution wid th ratioOrdered By: Karina Jones on 12-23-2023 Erythrocyte distribution width (RBC) [Ratio] 13.2 % 11.6-14.6 [facility] Erythrocyte distribution wid th standard deviationOrdered By: Karina Jones on 12-23-2023 Erythrocyte distribution width (RBC) [Entitic vol] 43.8 fL 35.1-43.9 [facility] Hematocrit Auto (Bld) [Volum e fraction]Ordered By: Karina Jones on 12-23-2023 Hematocrit (Bld) [Volume fraction] 40.2 % 37-47 [facility] Immature granulocytes/100 WB C Auto (Bld)Ordered By: Karina Jones on 12-23-2023 Immature granulocytes/100 WBC (Bld) 0.200 % 0.0-0.9 [facility] Comment on above: IG% - Immature Granu locytes (promyelocytes, myelocytes and metamyelocytes) > 1% indicates that a LEFT SHIFT is Present. Laboratory - Chemistry and C hemistry - challengeOrdered By: Karina Jones on 12-23-2023 Albumin/Globulin [Mass ratio] 1.0 {ratio} 0.9-2.4 [facility] ALP [Catalytic activity/Vol] 116 U/L 45-117 [facility] ALT [Catalytic activity/Vol] 13 U/L 13-56 [facility] Cholesterol in HDL [Mass/Vol] 42 mg/dL >40 [facility] Comment on above: The drugs N-Acetylcy steine and Metamizole may falsely depress this assay. Reference Range HDL <40 mg/dL Low HDL Cholesterol HDL >or= 60 mg/dL High HDL Cholesterol Cholesterol in LDL [Mass/Vol] 145 mg/dL 0-130 [facility] CO2 [Moles/Vol] 27.0 mmol/L 21.0-32.0 [facility] Globulin (S) [Mass/Vol] 4.0 g/dL 2.2-4.2 [facility] Urea nitrogen/Creatinine [Mass ratio] 17.9 mg/mg 10-20 [facility] Laboratory - Hematology and Cell countsOrdered By: Karina Jones on 12-23-2023 MCH (RBC) [Entitic mass] 28.3 pg 27.0-32.0 [facility] MCHC (RBC) [Mass/Vol] 31.1 g/dL 32-36 [facility] Nucleated RBC/100 WBC (Bld) [Ratio] 0 % 0-5 [facility] Platelet mean volume (Bld) [Entitic vol] 11.8 fL 6.2-12.0 [facility] Platelets (Bld) [#/Vol] 208 10*3/uL 150-450 [facility] No Panel InformationOrdered By: Karina Jones on 12-23-2023 Estimated GFR (MDRD) Amer 47 mL/min >60 [facility] Comment on above: GFR Calc Estimated GFR (MDRD) Non-Af Amer 39 mL/min >60 [facility] Comment on above: Non- GFR Calc VLDL Cholesterol 36 mg/dL 5-40 [facility] RBC Auto (Bld) [#/Vol]Ordere d By: Karina Jones on 12-23-2023 RBC (Bld) [#/Vol] 4.42 10*6/uL 4.2-5.4 [facility] Serum or plasma calcium johnson urement (mass/volume)Ordered By: Karina Jones on 12-23-2023 Calcium [Mass/Vol] 9.4 mg/dL 8.5-10.1 [facility] Serum or plasma creatinine m easurement (mass/volume)Ordered By: Karina Jones on 12-23-2023 Creatinine [Mass/Vol] 1.40 mg/dL 0.55-1.02 [facility] Comment on above: The validity of the calculated GFR & GFRAA in patients over 70 years has not been determined. Clinical correlation is essential. Serum or plasma urea nitroge n measurement (mass/volume)Ordered By: Karina Jones on 12-23-2023 Urea nitrogen [Mass/Vol] 25 mg/dL 7-18 [facility] Thin prep Papanicolaou smear with manual screeningOrdered By: Karina Jones on 12-23-2023 Thin prep Papanicolaou smear with manual screening 3.9 g/dL 3.2-5.0 [facility] Thin prep Papanicolaou smear with manual screening 9 U/L 15-37 [facility] Thin prep Papanicolaou smear with manual screening 5 5-15 [facility] Whole blood hemoglobin A1c/t otal hemoglobin ratio (mass fraction)Ordered By: Karina Jones on 12-23-2023 HbA1c (Bld) [Mass fraction] 5.5 % 3.8-5.6 [facility] Comment on above: Normal < 5.7 % Predi abetic 5.7 - 6.4 % Diabetic >or= 6.5 % Please note range changes. Basophil percentageOrdered B y: Dr. Christian on 02-19-2023 Chloride [Moles/Vol] 108 mmol/L 98-107 [facility] Glucose [Mass/Vol] 95 mg/dL 74-106 [facility] Potassium [Moles/Vol] 3.6 mmol/L 3.5-5.1 [facility] Sodium [Moles/Vol] 139 mmol/L 136-145 [facility] Basophil percentageOrdered B y: Dr. Esquivel on 02-19-2023 WBC (Bld) [#/Vol] 7.9 10*3/uL 4.4-11.0 [facility] Blood erythrocytes count (nu mber/volume)Ordered By: Dr. Esquivel on 02-19-2023 RBC (Bld) [#/Vol] 3.05 10*6/uL 4.2-5.4 [facility] Blood hemoglobin measurement (mass/volume)Ordered By: Dr. Esquivel on 02-19-2023 Hemoglobin (Bld) [Mass/Vol] 9.0 g/dL 12.0-15.0 [facility] Blood platelet mean volumeOr dered By: Dr. Esquivel on 02-19-2023 Platelet mean volume (Bld) [Entitic vol] 11.6 fL 6.2-12.0 [facility] Determination of erythrocyte mean corpuscular volume (MCV)Ordered By: Dr. Esquivel on 02-19-2023 MCV (RBC) [Entitic vol] 91.8 fL 81-99 [facility] Hematocrit Auto (Bld) [Volum e fraction]Ordered By: Dr. Esquivel on 02-19-2023 Hematocrit (Bld) [Volume fraction] 28.0 % 37-47 [facility] Laboratory - Chemistry and C hemistry - challengeOrdered By: Dr. Christian on 02-19-2023 CO2 [Moles/Vol] 27.0 mmol/L 21.0-32.0 [facility] Urea nitrogen/Creatinine [Mass ratio] 16.5 mg/mg 10-20 [facility] Laboratory - Hematology and Cell countsOrdered By: Dr. Esquivel on 02-19-2023 Erythrocyte distribution width (RBC) [Entitic vol] 44.9 fL 35.1-43.9 [facility] Erythrocyte distribution width (RBC) [Ratio] 13.5 % 11.6-14.6 [facility] MCH (RBC) [Entitic mass] 29.5 pg 27.0-32.0 [facility] Auto (RBC) [Mass/Vol]Or dered By: Dr. Esquivel on 02-19-2023 MCHC (RBC) [Mass/Vol] 32.1 g/dL 32-36 [facility] No Panel InformationOrdered By: Dr. Christian on 02-19-2023 Estimated Creatinine Clearance Calc 35.37 ml/min [facility] Estimated GFR (MDRD) Amer 59 mL/min >60 [facility] Comment on above: GFR Calc Estimated GFR (MDRD) Non-Af Amer 49 mL/min >60 [facility] Comment on above: Non- GFR Calc Platelets bldOrdered By: Dr. Esquivel on 02-19-2023 Platelets (Bld) [#/Vol] 130 10*3/uL 150-450 [facility] Serum or plasma calcium johnson urement (mass/volume)Ordered By: Dr. Christian on 02-19-2023 Calcium [Mass/Vol] 8.4 mg/dL 8.5-10.1 [facility] Serum or plasma creatinine m easurement (mass/volume)Ordered By: Dr. Christian on 02-19-2023 Creatinine [Mass/Vol] 1.15 mg/dL 0.55-1.02 [facility] Comment on above: The validity of the calculated GFR & GFRAA in patients over 70 years has not been determined. Clinical correlation is essential. Serum or plasma urea nitroge n measurement (mass/volume)Ordered By: Dr. Christian on 02-19-2023 Urea nitrogen [Mass/Vol] 19 mg/dL 7-18 [facility] Thin prep Papanicolaou smear with manual screeningOrdered By: Dr. Christian on 02-19-2023 Thin prep Papanicolaou smear with manual screening 4 5-15 [facility] Glucose Glucometer (BldC) [M ass/Vol]Ordered By: Dr. Esquivel on 02-17-2023 Glucose [Mass/Vol] 77 mg/dL 74-106 [facility] Comment on above: MANAGEMENT OF PATIEN T CARE PER NURSING PROTOCOL No Panel InformationOrdered By: Dr. Esquivel on 02-08-2023 Nasal Screen MRSA/MSSA [facility] Absolute lymphocyte countOrd ered By: Dr. Esquivel on 02-07-2023 Lymphocytes Auto (Unsp spec) [#/Vol] 1.23 10*3/uL 0.83-4.51 [facility] Basophil percentageOrdered B y: Dr. Esquivel on 02-07-2023 Basophils/100 WBC (Bld) 1.0 % 0-1 [facility] Eosinophils/100 WBC (Bld) 6.2 % 0-5 [facility] Neutrophils (Bld) [#/Vol] 3.1 10*3/uL 2.0-7.7 [facility] Neutrophils/100 WBC (Bld) 62.1 % 47-70 [facility] Blood lymphocytes/100 leukoc ytesOrdered By: Dr. Esquivel on 02-07-2023 Lymphocytes/100 WBC (Bld) 24.5 % 19-41 [facility] Blood monocytes/100 leukocyt esOrdered By: Dr. Esquivel on 02-07-2023 Monocytes/100 WBC (Bld) 5.8 % 0-10 [facility] INR in Blood by Coagulation assayOrdered By: Dr. Esquivel on 02-07-2023 INR Coag (Bld) [Relative time] 1.1 {INR} [facility] Laboratory - Chemistry and C hemistry - challengeOrdered By: Dr. Ramos on 02-07-2023 Magnesium [Mass/Vol] 2.0 mg/dL 1.6-2.6 [facility] Laboratory - CoagulationOrde red By: Dr. Esquivel on 02-07-2023 aPTT Coag (Bld) [Time] 26.9 s 24.1-36.2 [facility] PT Coag (PPP) [Time] 13.5 s 11.7-14.9 [facility] Laboratory - Hematology and Cell countsOrdered By: Dr. Esquivel on 02-07-2023 Immature granulocytes/100 WBC (Bld) 0.400 % 0.0-0.9 [facility] Comment on above: IG% - Immature Granu locytes (promyelocytes, myelocytes and metamyelocytes) > 1% indicates that a LEFT SHIFT is Present. Nucleated RBC/100 WBC (Bld) [Ratio] 0 % 0-5 [facility] No Panel InformationOrdered By: Dr. Esquivel on 02-07-2023 Fructosamine 278 umol/L 0-285 [facility] Comment on above: Published reference interval for apparently healthysubjects between age 20 and 60 is 205 - 285 umol/L and in apoorly controlled diabetic population is 228 - 563 umol/Lwith a mean of 396 umol/L.Performed at: [facility] [id number] Director: Ramses Harris PhD, Phone: [phone] Whole blood hemoglobin A1c/t otal hemoglobin ratio (mass fraction)Ordered By: Dr. Esquivel on 02-07-2023 HbA1c (Bld) [Mass fraction] 4.9 % 3.8-5.6 [facility] Comment on above: Normal < 5.7 % Predi abetic 5.7 - 6.4 % Diabetic >or= 6.5 % Please note range changes. Absolute lymphocyte countOrd ered By: Karina Jones on 01-20-2023 Lymphocytes Auto (Unsp spec) [#/Vol] 1.36 10*3/uL 0.83-4.51 [facility] Basophil percentageOrdered B y: Karina Jones on 01-20-2023 Basophils/100 WBC (Bld) 1.3 % 0-1 [facility] Eosinophils/100 WBC (Bld) 10.1 % 0-5 [facility] Neutrophils (Bld) [#/Vol] 2.2 10*3/uL 2.0-7.7 [facility] Neutrophils/100 WBC (Bld) 48.7 % 47-70 [facility] WBC (Bld) [#/Vol] 4.5 10*3/uL 4.4-11.0 [facility] Blood erythrocytes count (nu mber/volume)Ordered By: Karina Jones on 01-20-2023 RBC (Bld) [#/Vol] 3.89 10*6/uL 4.2-5.4 [facility] Blood hemoglobin measurement (mass/volume)Ordered By: Karina Jones on 01-20-2023 Hemoglobin (Bld) [Mass/Vol] 11.3 g/dL 12.0-15.0 [facility] Blood lymphocytes/100 leukoc ytesOrdered By: Karina Jones on 01-20-2023 Lymphocytes/100 WBC (Bld) 30.0 % 19-41 [facility] Blood monocytes/100 leukocyt esOrdered By: Karina Jones on 01-20-2023 Monocytes/100 WBC (Bld) 9.7 % 0-10 [facility] Blood platelet mean volumeOr dered By: Karina Jones on 01-20-2023 Platelet mean volume (Bld) [Entitic vol] 11.8 fL 6.2-12.0 [facility] Determination of erythrocyte mean corpuscular volume (MCV)Ordered By: Karina Jones on 01-20-2023 MCV (RBC) [Entitic vol] 93.3 fL 81-99 [facility] Hematocrit Auto (Bld) [Volum e fraction]Ordered By: Karina Jones on 01-20-2023 Hematocrit (Bld) [Volume fraction] 36.3 % 37-47 [facility] Laboratory - Hematology and Cell countsOrdered By: Karina Jones on 01-20-2023 Erythrocyte distribution width (RBC) [Entitic vol] 47.7 fL 35.1-43.9 [facility] Erythrocyte distribution width (RBC) [Ratio] 13.9 % 11.6-14.6 [facility] Immature granulocytes/100 WBC (Bld) 0.200 % 0.0-0.9 [facility] Comment on above: IG% - Immature Granu locytes (promyelocytes, myelocytes and metamyelocytes) > 1% indicates that a LEFT SHIFT is Present. MCH (RBC) [Entitic mass] 29.0 pg 27.0-32.0 [facility] Nucleated RBC/100 WBC (Bld) [Ratio] 0 % 0-5 [facility] MCHC Auto (RBC) [Mass/Vol]Or dered By: Karina Jones on 01-20-2023 MCHC (RBC) [Mass/Vol] 31.1 g/dL 32-36 [facility] Platelets bldOrdered By: Christiane Jones on 01-20-2023 Platelets (Bld) [#/Vol] 189 10*3/uL 150-450 [facility] Culture, urineOrdered By: Clyde Jones on 01-10-2023 Bacteria identified Cx Nom (U) Escherichia coli [facility] Absolute lymphocyte countOrd ered By: Karina Jones on 01-08-2023 Lymphocytes Auto (Unsp spec) [#/Vol] 2.07 10*3/uL 0.83-4.51 [facility] Basophil percentageOrdered B y: Karina Jones on 01-08-2023 Basophils/100 WBC (Bld) 1.2 % 0-1 [facility] Bilirubin [Mass/Vol] 0.40 mg/dL 0.20-1.00 [facility] Comment on above: For patients on eltr ombopag therapy, use of Dimension Vancourt TBIL is not recommended. Chloride [Moles/Vol] 103 mmol/L 98-107 [facility] Eosinophils/100 WBC (Bld) 7.4 % 0-5 [facility] Glucose [Mass/Vol] 93 mg/dL 74-106 [facility] Neutrophils (Bld) [#/Vol] 2.9 10*3/uL 2.0-7.7 [facility] Neutrophils/100 WBC (Bld) 48.6 % 47-70 [facility] Potassium [Moles/Vol] 4.2 mmol/L 3.5-5.1 [facility] Protein [Mass/Vol] 7.4 g/dL 6.4-8.2 [facility] Sodium [Moles/Vol] 137 mmol/L 136-145 [facility] WBC (Bld) [#/Vol] 5.9 10*3/uL 4.4-11.0 [facility] Blood erythrocytes count (nu mber/volume)Ordered By: Karina Jones on 01-08-2023 RBC (Bld) [#/Vol] 3.94 10*6/uL 4.2-5.4 [facility] Blood hemoglobin measurement (mass/volume)Ordered By: Karina Jones on 01-08-2023 Hemoglobin (Bld) [Mass/Vol] 11.4 g/dL 12.0-15.0 [facility] Blood lymphocytes/100 leukoc ytesOrdered By: Karina Jones on 01-08-2023 Lymphocytes/100 WBC (Bld) 35.0 % 19-41 [facility] Blood monocytes/100 leukocyt esOrdered By: Karina Jones on 01-08-2023 Monocytes/100 WBC (Bld) 7.6 % 0-10 [facility] Blood platelet mean volumeOr dered By: Karina Jones on 01-08-2023 Platelet mean volume (Bld) [Entitic vol] 11.2 fL 6.2-12.0 [facility] Determination of erythrocyte mean corpuscular volume (MCV)Ordered By: Karina Jones on 01-08-2023 MCV (RBC) [Entitic vol] 93.1 fL 81-99 [facility] Hematocrit Auto (Bld) [Volum e fraction]Ordered By: Karina Jones on 01-08-2023 Hematocrit (Bld) [Volume fraction] 36.7 % 37-47 [facility] Laboratory - Chemistry and C hemistry - challengeOrdered By: Karina Jones on 01-08-2023 ALP [Catalytic activity/Vol] 78 U/L 45-117 [facility] ALT [Catalytic activity/Vol] 11 U/L 13-56 [facility] CO2 [Moles/Vol] 25.0 mmol/L 21.0-32.0 [facility] Globulin (S) [Mass/Vol] 3.6 g/dL 2.2-4.2 [facility] Urea nitrogen/Creatinine [Mass ratio] 23.5 mg/mg 10-20 [facility] Laboratory - Hematology and Cell countsOrdered By: Karina Jones on 01-08-2023 Erythrocyte distribution width (RBC) [Entitic vol] 46.4 fL 35.1-43.9 [facility] Erythrocyte distribution width (RBC) [Ratio] 13.6 % 11.6-14.6 [facility] Immature granulocytes/100 WBC (Bld) 0.200 % 0.0-0.9 [facility] Comment on above: IG% - Immature Granu locytes (promyelocytes, myelocytes and metamyelocytes) > 1% indicates that a LEFT SHIFT is Present. MCH (RBC) [Entitic mass] 28.9 pg 27.0-32.0 [facility] Nucleated RBC/100 WBC (Bld) [Ratio] 0 % 0-5 [facility] MCHC Auto (RBC) [Mass/Vol]Or dered By: Karina Jones on 01-08-2023 MCHC (RBC) [Mass/Vol] 31.1 g/dL 32-36 [facility] No Panel InformationOrdered By: Karina Jones on 01-08-2023 Estimated GFR (MDRD) Amer 59 mL/min >60 [facility] Comment on above: GFR Calc Estimated GFR (MDRD) Non-Af Amer 49 mL/min >60 [facility] Comment on above: Non- GFR Calc Thyroid Stimulating Hormone (TSH) 0.68 uIU/mL 0.358-3.74 [facility] Vitamin B12 Level > 2000 pg/mL 211-911 [facility] Vitamin D 25-Hydroxy 28.6 ng/mL [facility] Comment on above: Vitamin D 25(OH) Sta tus Range Deficiency <20 ng/mL (50nmol/L) Insufficiency 20 - 30 ng/mL (50 - 75 nmol/L) Sufficiency 30 - 100 ng/mL (75 - 250 nmol/L) Toxicity >100 ng/mL (>250 nmol/L) Platelets bldOrdered By: Christiane Jones on 01-08-2023 Platelets (Bld) [#/Vol] 241 10*3/uL 150-450 [facility] Serum or plasma albumin johnson urement (mass/volume)Ordered By: Karina Jones on 01-08-2023 Albumin [Mass/Vol] 3.8 g/dL 3.2-5.0 [facility] Serum or plasma albumin/glob ulin mass ratioOrdered By: Karina Jones on 01-08-2023 Albumin/Globulin [Mass ratio] 1.1 {ratio} 0.9-2.4 [facility] Serum or plasma calcium johnson urement (mass/volume)Ordered By: Karina Jones on 01-08-2023 Calcium [Mass/Vol] 9.4 mg/dL 8.5-10.1 [facility] Serum or plasma creatinine m easurement (mass/volume)Ordered By: Karina Jones on 01-08-2023 Creatinine [Mass/Vol] 1.15 mg/dL 0.55-1.02 [facility] Comment on above: The validity of the calculated GFR & GFRAA in patients over 70 years has not been determined. Clinical correlation is essential. Serum or plasma ferritin chang surement (mass/volume)Ordered By: Karina Jones on 01-08-2023 Ferritin [Mass/Vol] 269 ng/mL 8-252 [facility] Serum or plasma urea nitroge n measurement (mass/volume)Ordered By: Karina Jones on 01-08-2023 Urea nitrogen [Mass/Vol] 27 mg/dL 7-18 [facility] Thin prep Papanicolaou smear with manual screeningOrdered By: Karina Jones on 01-08-2023 Thin prep Papanicolaou smear with manual screening 9 U/L 15-37 [facility] Thin prep Papanicolaou smear with manual screening 9 5-15 [facility] Basophil percentageOrdered B y: Dr. Esquivel on 11-19-2022 Chloride [Moles/Vol] 104 mmol/L 98-107 [facility] Glucose [Mass/Vol] 136 mg/dL 74-106 [facility] Comment on above: Fasting Glucose resu lt greater than or equal to 126 mg/dL suggests DIABETES MELLITUS per A.D.A. criteria. Potassium [Moles/Vol] 5.1 mmol/L 3.5-5.1 [facility] Sodium [Moles/Vol] 139 mmol/L 136-145 [facility] WBC (Bld) [#/Vol] 8.2 10*3/uL 4.4-11.0 [facility] Blood erythrocytes count (nu mber/volume)Ordered By: Dr. Esquivel on 11-19-2022 RBC (Bld) [#/Vol] 3.57 10*6/uL 4.2-5.4 [facility] Blood hemoglobin measurement (mass/volume)Ordered By: Dr. Esquivel on 11-19-2022 Hemoglobin (Bld) [Mass/Vol] 10.3 g/dL 12.0-15.0 [facility] Blood platelet mean volumeOr dered By: Dr. Esquivel on 11-19-2022 Platelet mean volume (Bld) [Entitic vol] 11.2 fL 6.2-12.0 [facility] Determination of erythrocyte mean corpuscular volume (MCV)Ordered By: Dr. Esquivel on 11-19-2022 MCV (RBC) [Entitic vol] 92.7 fL 81-99 [facility] Glucose Glucometer (BldC) [M ass/Vol]Ordered By: Dr. Esquivel on 11-19-2022 Glucose [Mass/Vol] 96 mg/dL 74-106 [facility] Comment on above: MANAGEMENT OF PATIEN T CARE PER NURSING PROTOCOL Hematocrit Auto (Bld) [Volum e fraction]Ordered By: Dr. Esquivel on 11-19-2022 Hematocrit (Bld) [Volume fraction] 33.1 % 37-47 [facility] Laboratory - Chemistry and C hemistry - challengeOrdered By: Dr. Esquivel on 11-19-2022 CO2 [Moles/Vol] 26.0 mmol/L 21.0-32.0 [facility] Urea nitrogen/Creatinine [Mass ratio] 13.7 mg/mg 10-20 [facility] Laboratory - Hematology and Cell countsOrdered By: Dr. Esquivel on 11-19-2022 Erythrocyte distribution width (RBC) [Entitic vol] 45.1 fL 35.1-43.9 [facility] Erythrocyte distribution width (RBC) [Ratio] 13.2 % 11.6-14.6 [facility] MCH (RBC) [Entitic mass] 28.9 pg 27.0-32.0 [facility] MCHC Auto (RBC) [Mass/Vol]Or dered By: Dr. Esquivel on 11-19-2022 MCHC (RBC) [Mass/Vol] 31.1 g/dL 32-36 [facility] No Panel InformationOrdered By: Dr. Esquivel on 11-19-2022 Estimated Creatinine Clearance Calc 28.93 ml/min [facility] Estimated GFR (MDRD) Amer 48 mL/min >60 [facility] Comment on above: GFR Calc Estimated GFR (MDRD) Non-Af Amer 39 mL/min >60 [facility] Comment on above: Non- GFR Calc No Panel InformationOrdered By: Dr. Mccullough on 11-19-2022 Troponin I High Sensitivity 5 pg/mL 3.0-54.0 [facility] Comment on above: Please Note: [place] Units and Gender Specific Reference Ranges. For more information see Policy Stat Procedure Vancourt High Sensitivity Troponin (TNIH) and attachments. Platelets bldOrdered By: Dr. Esquivel on 11-19-2022 Platelets (Bld) [#/Vol] 153 10*3/uL 150-450 [facility] Serum or plasma calcium johnson urement (mass/volume)Ordered By: Dr. Esquivel on 11-19-2022 Calcium [Mass/Vol] 9.0 mg/dL 8.5-10.1 [facility] Serum or plasma creatinine m easurement (mass/volume)Ordered By: Dr. Esquivel on 11-19-2022 Creatinine [Mass/Vol] 1.39 mg/dL 0.55-1.02 [facility] Comment on above: The validity of the calculated GFR & GFRAA in patients over 70 years has not been determined. Clinical correlation is essential. Serum or plasma urea nitroge n measurement (mass/volume)Ordered By: Dr. Esquivel on 11-19-2022 Urea nitrogen [Mass/Vol] 19 mg/dL 7-18 [facility] Thin prep Papanicolaou smear with manual screeningOrdered By: Dr. Esquivel on 11-19-2022 Thin prep Papanicolaou smear with manual screening 9 5-15 [facility] Basophil percentageOrdered B y: Karina Jones on 11-12-2022 Chloride [Moles/Vol] 103 mmol/L 98-107 [facility] Cholesterol [Mass/Vol] 221 mg/dL <200 [facility] Comment on above: <200 mg/dL Desirable 200-240 mg/dL Borderline >240 mg/dL High Risk Glucose [Mass/Vol] 88 mg/dL 74-106 [facility] Potassium [Moles/Vol] 4.2 mmol/L 3.5-5.1 [facility] Sodium [Moles/Vol] 141 mmol/L 136-145 [facility] Triglyceride [Mass/Vol] 159 mg/dL <199 [facility] Comment on above: The drugs N-Acetylcy steine and Metamizole may falsely depress this assay.Serum Triglycerides Reference Interval Normal <150 mg/dL Borderline high 150 - 199 mg/dL High 200 - 499 mg/dL Very High > or = 500 mg/dL Laboratory - Chemistry and C hemistry - challengeOrdered By: Karina Jones on 11-12-2022 CO2 [Moles/Vol] 29.0 mmol/L 21.0-32.0 [facility] Urea nitrogen/Creatinine [Mass ratio] 20.2 mg/mg 10-20 [facility] No Panel InformationOrdered By: Karina Jones on 11-12-2022 Estimated GFR (MDRD) Amer 52 mL/min >60 [facility] Comment on above: GFR Calc Estimated GFR (MDRD) Non-Af Amer 43 mL/min >60 [facility] Comment on above: Non- GFR Calc Serum or plasma calcium johnson urement (mass/volume)Ordered By: Karina Jones on 11-12-2022 Calcium [Mass/Vol] 9.4 mg/dL 8.5-10.1 [facility] Serum or plasma cholesterol in HDL measurement (mass/volume)Ordered By: Karina Jones on 11-12-2022 Cholesterol in HDL [Mass/Vol] 49 mg/dL >40 [facility] Comment on above: The drugs N-Acetylcy steine and Metamizole may falsely depress this assay. Reference Range HDL <40 mg/dL Low HDL Cholesterol HDL >or= 60 mg/dL High HDL Cholesterol Serum or plasma cholesterol in VLDL measurement (mass/volume)Ordered By: Karina Jones on 11-12-2022 Cholesterol in VLDL [Mass/Vol] 32 mg/dL 5-40 [facility] Serum or plasma creatinine m easurement (mass/volume)Ordered By: Karina Jones on 11-12-2022 Creatinine [Mass/Vol] 1.29 mg/dL 0.55-1.02 [facility] Comment on above: The validity of the calculated GFR & GFRAA in patients over 70 years has not been determined. Clinical correlation is essential. Serum or plasma low density lipoprotein (LDL) cholesterol measurement (mass/volume)Ordered By: Karina Jones on 11-12-2022 Cholesterol in LDL [Mass/Vol] 140 mg/dL 0-130 [facility] Serum or plasma urea nitroge n measurement (mass/volume)Ordered By: Karina Jones on 11-12-2022 Urea nitrogen [Mass/Vol] 26 mg/dL 7-18 [facility] Thin prep Papanicolaou smear with manual screeningOrdered By: Karina Jones on 11-12-2022 Thin prep Papanicolaou smear with manual screening 9 5-15 [facility] No Panel InformationOrdered By: Dr. Esquivel on 11-01-2022 Nasal Screen MRSA/MSSA [facility] Absolute lymphocyte countOrd ered By: Dr. Esquivel on 10-31-2022 Lymphocytes Auto (Unsp spec) [#/Vol] 1.73 10*3/uL 0.83-4.51 [facility] Basophil percentageOrdered B y: Dr. Esquivel on 10-31-2022 Basophils/100 WBC (Bld) 0.9 % 0-1 [facility] Eosinophils/100 WBC (Bld) 7.1 % 0-5 [facility] Neutrophils (Bld) [#/Vol] 2.7 10*3/uL 2.0-7.7 [facility] Neutrophils/100 WBC (Bld) 49.9 % 47-70 [facility] Blood lymphocytes/100 leukoc ytesOrdered By: Dr. Esquivel on 10-31-2022 Lymphocytes/100 WBC (Bld) 32.5 % 19-41 [facility] Blood monocytes/100 leukocyt esOrdered By: Dr. Esquivel on 10-31-2022 Monocytes/100 WBC (Bld) 9.2 % 0-10 [facility] INR in Blood by Coagulation assayOrdered By: Dr. Esquivel on 10-31-2022 INR Coag (Bld) [Relative time] 1.0 {INR} [facility] Laboratory - Chemistry and C hemistry - challengeOrdered By: Dr. Ramos on 10-31-2022 Magnesium [Mass/Vol] 2.2 mg/dL 1.6-2.6 [facility] Laboratory - CoagulationOrde red By: Dr. Esquivel on 10-31-2022 aPTT Coag (Bld) [Time] 33.3 s 24.1-36.2 [facility] PT Coag (PPP) [Time] 13.2 s 11.7-14.9 [facility] Laboratory - Hematology and Cell countsOrdered By: Dr. Esquivel on 10-31-2022 Immature granulocytes/100 WBC (Bld) 0.400 % 0.0-0.9 [facility] Comment on above: IG% - Immature Granu locytes (promyelocytes, myelocytes and metamyelocytes) > 1% indicates that a LEFT SHIFT is Present. Nucleated RBC/100 WBC (Bld) [Ratio] 0 % 0-5 [facility] No Panel InformationOrdered By: Dr. Esquivel on 10-31-2022 Fructosamine 275 umol/L 0-285 [facility] Comment on above: Published reference interval for apparently healthysubjects between age 20 and 60 is 205 - 285 umol/L and in apoorly controlled diabetic population is 228 - 563 umol/Lwith a mean of 396 umol/L.Performed at: [facility] [address] [id number] Director: Ramses Harris PhD, Phone: [phone] Whole blood hemoglobin A1c/t otal hemoglobin ratio (mass fraction)Ordered By: Dr. Esquivel on 10-31-2022 HbA1c (Bld) [Mass fraction] 5.3 % 3.8-5.6 [facility] Comment on above: Normal < 5.7 % Predi abetic 5.7 - 6.4 % Diabetic >or= 6.5 % Please note range changes. Basophil percentageOrdered B y: Renee Jessica on 08-22-2022 Bilirubin [Mass/Vol] 0.40 mg/dL 0.20-1.00 [facility] Comment on above: For patients on eltr ombopag therapy, use of Dimension V[place]ourt TBIL is not recommended. Chloride [Moles/Vol] 106 mmol/L 98-107 [facility] Glucose [Mass/Vol] 88 mg/dL 74-106 [facility] Potassium [Moles/Vol] 4.2 mmol/L 3.5-5.1 [facility] Protein [Mass/Vol] 7.0 g/dL 6.4-8.2 [facility] Sodium [Moles/Vol] 140 mmol/L 136-145 [facility] Direct bilirubinOrdered By: Renee Lopez on 08-22-2022 Bilirubin.direct [Mass/Vol] 0.14 mg/dL 0.00-0.30 [facility] Laboratory - Chemistry and C hemistry - challengeOrdered By: Renee Lopez on 08-22-2022 ALP [Catalytic activity/Vol] 93 U/L 45-117 [facility] ALT [Catalytic activity/Vol] 13 U/L 13-56 [facility] CO2 [Moles/Vol] 28.0 mmol/L 21.0-32.0 [facility] Globulin (S) [Mass/Vol] 3.4 g/dL 2.2-4.2 [facility] Urea nitrogen/Creatinine [Mass ratio] 12.7 mg/mg 10-20 [facility] No Panel InformationOrdered By: Renee Lopez on 08-22-2022 Estimated GFR (MDRD) Amer 44 mL/min >60 [facility] Comment on above: GFR Calc Estimated GFR (MDRD) Non-Af Amer 36 mL/min >60 [facility] Comment on above: Non- GFR Calc Serum or plasma albumin johnson urement (mass/volume)Ordered By: Renee Lopez on 08-22-2022 Albumin [Mass/Vol] 3.6 g/dL 3.2-5.0 [facility] Serum or plasma calcium johnson urement (mass/volume)Ordered By: Renee Lopez on 08-22-2022 Calcium [Mass/Vol] 9.0 mg/dL 8.5-10.1 [facility] Serum or plasma creatinine m easurement (mass/volume)Ordered By: Renee Lopez on 08-22-2022 Creatinine [Mass/Vol] 1.50 mg/dL 0.55-1.02 [facility] Comment on above: The validity of the calculated GFR & GFRAA in patients over 70 years has not been determined. Clinical correlation is essential. Serum or plasma urea nitroge n measurement (mass/volume)Ordered By: Renee Lopez on 08-22-2022 Urea nitrogen [Mass/Vol] 19 mg/dL 7-18 [facility] Thin prep Papanicolaou smear with manual screeningOrdered By: Renee Lopez on 08-22-2022 Thin prep Papanicolaou smear with manual screening 9 U/L 15 [facility] Thin prep Papanicolaou smear with manual screening 6 5-15 [facility] Vital Signs Date Time Vital Sign Value Performing Clinician Faci lity 07-28-2025 07:56-0400 Body mass index (BMI) [Ratio] 22.4 kg/m2 Hallie Eli MD Work Phone: [facility] 07-28-2025 07:56-0400 Body weight 59.42 kg Hallie Eli MD Work Phone: [facility] 07-28-2025 07:56-0400 Diastolic blood pressure 80 mm[Hg] Hallie Eli MD Work Phone: [facility] 07-28-2025 07:56-0400 Heart rate 67 /min Hallie Eli MD Work Phone: [facility] 07-28-2025 07:56-0400 Respiratory rate 16 /min Hallie Eli MD Work Phone: [facility] 07-28-2025 07:56-0400 SaO2% (BldA) [Mass fraction] 98 % Hallie Eli MD Work Phone: [facility] 07-28-2025 07:56-0400 Systolic blood pressure 127 mm[Hg] Hallie Eli MD Work Phone: [facility] 05-31-2025 10:23-0400 Body height 162.56 cm Hallie Eli MD Work Phone: [facility] 05-31-2025 10:23-0400 Body mass index (BMI) [Ratio] 23.3 kg/m2 Hallie Eli MD Work Phone: [facility] 05-31-2025 10:23-0400 Body weight 61.68 kg Hallie Eli MD Work Phone: [facility] 05-31-2025 10:23-0400 Diastolic blood pressure 80 mm[Hg] Hallie Eli MD Work Phone: [facility] 05-31-2025 10:23-0400 Heart rate 62 /min Hallie Eli MD Work Phone: [facility] 05-31-2025 10:23-0400 Respiratory rate 16 /min Hallie Eli MD Work Phone: [facility] 05-31-2025 10:23-0400 Systolic blood pressure 147 mm[Hg] Hallie Eli MD Work Phone: [facility] 02-19-2023 08:14-0400 Body temperature 97.8 [degF] SWITCH ENGINEER-C Lisbet Fernando SWITCH ENGINEER Work Phone: [facility] 02-19-2023 08:14-0400 Diastolic blood pressure 72 mm[Hg] SWITCH ENGINEER-C Lisbet Fernando SWITCH ENGINEER Work Phone: [facility] 02-19-2023 08:14-0400 Heart rate 83 /min SWITCH ENGINEER-C Lisbet Fernando SWITCH ENGINEER Work Phone: [facility] 02-19-2023 08:14-0400 Respiratory rate 18 /min SWITCH ENGINEER-C Lisbet Fernando SWITCH ENGINEER Work Phone: [facility] 02-19-2023 08:14-0400 SaO2% (BldA) [Mass fraction] 98 % SWITCH ENGINEER-C Lisbet Fernando SWITCH ENGINEER Work Phone: [facility] 02-19-2023 08:14-0400 Systolic blood pressure 130 mm[Hg] SWITCH ENGINEER-C Lisbet Fernando SWITCH ENGINEER Work Phone: [facility] 02-17-2023 16:20-0400 Body height 162.56 cm SWITCH ENGINEER-C Lisbet Fernando SWITCH ENGINEER Work Phone: [facility] 02-17-2023 16:20-0400 Body mass index (BMI) [Ratio] 20 kg/m2 SWITCH ENGINEER-C Lisbet Fernando SWITCH ENGINEER Work Phone: [facility] 02-17-2023 16:20-0400 Body weight 53 kg SWITCH ENGINEER-C Lisbet King SWITCH ENGINEER Work Phone: [facility] 02-17-2023 15:00-0400 Inhaled oxygen flow rate 4 L/min SWITCH ENGINEER-C Lisbet Mercedesner SWITCH ENGINEER Work Phone: [facility] 11-19-2022 15:08-0500 Body temperature 98 [degF] PA Renee Lust PA Work Phone: [facility] 11-19-2022 15:08-0500 Diastolic blood pressure 62 mm[Hg] PA Renee Lust PA Work Phone: [facility] 11-19-2022 15:08-0500 Heart rate 72 /min PA Renee Lust PA Work Phone: [facility] 11-19-2022 15:08-0500 Respiratory rate 18 /min PA Renee Lust PA Work Phone: [facility] 11-19-2022 15:08-0500 SaO2% (BldA) [Mass fraction] 100 % PA Renee Lust PA Work Phone: [facility] 11-19-2022 15:08-0500 Systolic blood pressure 139 mm[Hg] PA Renee Lust PA Work Phone: [facility] 11-19-2022 03:00-0500 Inhaled oxygen flow rate 2 L/min PA Renee Lust PA Work Phone: [facility] 11-18-2022 16:40-0500 Body height 165.1 cm PA Renee Lust PA Work Phone: [facility] 11-18-2022 16:40-0500 Body mass index (BMI) [Ratio] 19.2 kg/m2 PA Renee Lust PA Work Phone: [facility] 11-18-2022 16:40-0500 Body weight 52.4 kg PA Renee Lust PA Work Phone: [facility] 07-30-2022 14:16-0400 Body height 154.94 cm PA Kishor Hughes PA Work Phone: [facility] Work Phone: 07-30-2022 14:16-0400 Body mass index (BMI) [Ratio] 21.1 kg/m2 PA Kishor Hughes PA Work Phone: [facility] 07-30-2022 14:16-0400 Body weight 50.8 kg PA Kishor Hughes PA Work Phone: [facility] 07-25-2022 17:01-0400 Body mass index (BMI) [Ratio] 20.2 kg/m2 PA Kishor Hughes PA Work Phone: [facility] 07-25-2022 17:01-0400 Body temperature 98.6 [degF] PA Kishor Hughes PA Work Phone: [facility] 07-25-2022 17:01-0400 Body weight 48.53 kg PA Kishor Hughes PA Work Phone: [facility] 07-25-2022 17:01-0400 Diastolic blood pressure 70 mm[Hg] PA Kishor Hughes PA Work Phone: [facility] 07-25-2022 17:01-0400 Heart rate 70 /min PA Kishor Hughes PA Work Phone: [facility] 07-25-2022 17:01-0400 Respiratory rate 16 /min PA Kishor Hughes PA Work Phone: [facility] 07-25-2022 17:01-0400 SaO2% (BldA) [Mass fraction] 99 % PA Kishor Hughes PA Work Phone: [facility] 07-25-2022 17:01-0400 Systolic blood pressure 130 mm[Hg] PA Kishor Hughes PA Work Phone: [facility] Encounters Encounter Date Encounter Type Care Provider Facility Start: 09-11-2025 ambulatory Tejal ROTHMAN Facility:[facility] Start: 08-08-2025 ambulatory Hallie Eli Facility:[facility] Start: 08-08-2025 End: 08-08-2025 ambulatory Hallie Sreedhar Facility:[facility] Start: 07-28-2025 End: 07-28-2025 Patient encounter procedure Tejal ROTHMAN -[facility] Work Phone: Start: 07-28-2025 End: 07-28-2025 ambulatory Hallie Eli MD Work Phone: -[facility] Start: 07-21-2025 Non-patient / Non-visit [facility] Richardson [facility] Start: 07-21-2025 End: 07-21-2025 ambulatory Hallie Eli MD Work Phone: -Cardiovascular Services Start: 07-21-2025 End: 07-21-2025 Patient encounter procedure Tejal ROTHMAN -Cardiovascular Services Work Phone: Start: 07-21-2025 End: 07-21-2025 ambulatory Tejal ROTHMAN Facility:[facility] Start: 05-31-2025 End: 05-31-2025 ambulatory Hallie Eli MD Work Phone: -Laboratory Start: 05-31-2025 End: 05-31-2025 Patient encounter procedure Tejal ROTHMAN -Laboratory Work Phone: Start: 05-31-2025 End: 05-31-2025 Patient encounter procedure Tejal ROTHMAN -[facility] Work Phone: Start: 05-31-2025 End: 05-31-2025 ambulatory Hallie Eli MD Work Phone: -[facility] Start: 05-31-2025 End: 05-31-2025 ambulatory Tejal ROTHMAN Facility:[facility] Start: 10-28-2024 End: 10-28-2024 ambulatory Hallie Eli [facility] Start: 12-23-2023 End: 12-23-2023 ambulatory [facility] Work Phone: Start: 12-23-2023 End: 12-23-2023 Patient encounter procedure [facility] Start: 02-19-2023 Non-patient / Non-visit SWITCH ENGINEER-C E bladimir King SWITCH ENGINEER Work Phone: [facility] Start: 02-18-2023 Non-patient / Non-visit SWITCH ENGINEER-C E bladimir Mercedesner SWITCH ENGINEER Work Phone: [facility] Start: 02-18-2023 Non-patient / Non-visit SWITCH ENGINEER-C E bladimir Mercedesner SWITCH ENGINEER Work Phone: [facility] Start: 02-17-2023 End: 02-19-2023 Evaluation and management of inpatient SWITCH ENGINEER-C Lisbetrosita King SWITCH ENGINEER [facility] Start: 02-17-2023 End: 02-19-2023 observation encounter SWITCH ENGINEER-C Lisbet King SWITCH ENGINEER Work Phone: [facility] Work Phone: Start: 02-17-2023 Non-patient / Non-visit SWITCH ENGINEER-C E bladimir King SWITCH ENGINEER Work Phone: [facility] Start: 02-13-2023 End: 02-13-2023 ambulatory SWITCH ENGINEER-C Lisbet Fernando SWITCH ENGINEER Work Phone: [facility] Work Phone: Start: 02-13-2023 End: 02-13-2023 Patient encounter procedure SWITCH ENGINEER-C Lisbetrosita Mercedesner SWITCH ENGINEER Work Phone: [facility] Start: 02-05-2023 End: 02-05-2023 Patient encounter procedure SWITCH ENGINEER-C Lisbetrosita Mercedesner SWITCH ENGINEER Work Phone: [facility] Start: 01-20-2023 End: 01-20-2023 ambulatory SWITCH ENGINEER-C Lisbetrosita Mercedesner SWITCH ENGINEER Work Phone: [facility] Work Phone: Start: 01-20-2023 End: 01-20-2023 Patient encounter procedure SWITCH ENGINEER-C Lisbet King SWITCH ENGINEER Work Phone: [facility] Start: 01-08-2023 End: 01-08-2023 ambulatory PA Renee ROTHMAN Work Phone: [facility] Work Phone: Start: 01-08-2023 End: 01-08-2023 Patient encounter procedure PA Renee Lopez PA Work Phone: [facility] Start: 01-01-2023 End: 01-01-2023 ambulatory SWITCH ENGINEER-C Lisbetrosita King SWITCH ENGINEER Work Phone: [facility] Work Phone: Start: 01-01-2023 End: 01-01-2023 Discharged Recurring SWITCH ENGINEER-C Lisbet King SWITCH ENGINEER Work Phone: [facility]-Physical Therapy Start: 01-01-2023 Registered Recurring PA Renee Lopez PA Work Phone: [facility] Start: 12-31-2022 End: 12-31-2022 Patient encounter procedure STEPHAN Lopez PA Work Phone: [facility] Start: 12-03-2022 End: 12-03-2022 Patient encounter procedure STEPHAN ROTHMAN Work Phone: [facility] Start: 11-21-2022 Registered Recurring PA Renee Lopez PA Work Phone: [facility] Therapy Start: 11-19-2022 Non-patient / Non-visit PA Shola via Lust PA Work Phone: [facility] Start: 11-19-2022 Non-patient / Non-visit PA Shola via Lust PA Work Phone: [facility] Start: 11-18-2022 End: 11-18-2022 Non-patient / Non-visit PA Renee Lust PA Work Phone: [facility] Start: 11-18-2022 Non-patient / Non-visit PA Shola via Lust PA Work Phone: [facility] Start: 11-18-2022 Non-patient / Non-visit PA Shola via Lust PA Work Phone: [facility] Start: 11-18-2022 End: 11-19-2022 Evaluation and management of inpatient PA Renee Josuest PA Work Phone: [facility] 3 Start: 11-12-2022 End: 11-12-2022 ambulatory PA Renee Josuest PA Work Phone: [facility] Work Phone: Start: 11-12-2022 End: 11-12-2022 Patient encounter procedure PA Renee Josuest PA Work Phone: [facility] Start: 11-07-2022 End: 11-07-2022 Patient encounter procedure PA Renee Josuest PA Work Phone: [facility] Start: 10-31-2022 End: 10-31-2022 Non-patient / Non-visit PA Renee Josuest PA Work Phone: [facility] Start: 10-21-2022 End: 10-21-2022 ambulatory PA Renee Josuest PA Work Phone: [facility] Work Phone: Start: 10-21-2022 End: 10-21-2022 Patient encounter procedure PA Renee Josuest PA Work Phone: [facility] Start: 09-15-2022 End: 09-15-2022 Patient encounter procedure PA Renee Josuest PA Work Phone: [facility] Start: 09-11-2022 End: 09-11-2022 ambulatory PA Kishor ROTHMAN Work Phone: [facility] Work Phone: Start: 09-11-2022 End: 09-11-2022 Discharged Recurring PA Kishor ROTHMAN Work Phone: [facility]Physical Therapy Start: 08-28-2022 Registered Recurring PA Kishor gregory PA Work Phone: [facility] Start: 08-22-2022 Patient encounter status STEPHAN ROTHMAN Work Phone: [facility] Start: 08-22-2022 End: 08-22-2022 ambulatory PA Kishor ROTHMAN Work Phone: [facility] Work Phone: Start: 08-22-2022 End: 08-22-2022 Patient encounter procedure STEPHAN ROTHMAN Work Phone: [facility] Start: 07-30-2022 End: 07-30-2022 Patient encounter procedure STEPHAN ROTHMAN Work Phone: [facility] Start: 07-25-2022 End: 07-25-2022 Patient encounter procedure STEPHAN ROTHMAN Work Phone: [facility] Procedures Date Procedure Procedure Detail Performing Clinician Start: 02-17-2023 Radiologic examinati on of knee SWITCH ENGINEER-C Lisbet King SWITCH ENGINEER Work Phone: Start: 02-17-2023 Total Knee Replaceme nt Robotic Arm Sahil (Right) SWITCH ENGINEER-C Lisbet King SWITCH ENGINEER Work Phone: Start: 02-13-2023 MRI of lower extremity SWITCH ENGINEER-C Lisbet King SWITCH ENGINEER Work Phone: Start: 12-31-2022 Radiologic examinati on of knee PA Renee ROTHMAN Work Phone: Start: 11-18-2022 Radiologic examinati on of knee PA Renee ROTHMAN Work Phone: Start: 11-18-2022 Total Knee Replaceme nt Robotic Arm Sahil (Left) PA Renee ROTHMAN Work Phone: Start: 10-21-2022 MRI of lower extremity PA Renee ROTHMAN Work Phone: Start: 07-30-2022 Radiologic examinati on of knee PA Kishor ROTHMAN Work Phone: Nasal Screen MRSA/MSSA PA Jd ROTHMAN Work Phone: Nasal Screen MRSA/MSSA SWITCH ENGINEER-C Lisbet King SWITCH ENGINEER Work Phone: Urine culture PA Renee ROTHMAN Work Phone: Plan of Treatment Date Care Activity Detail Author Start: 07-28-2025 Radionuclide imaging of perfusion of myocardium under exercise stress [facility] Start: 05-31-2025 Radionuclide imaging of perfusion of myocardium under exercise stress [facility] Start: 02-19-2023 Patient discharge [facility] Start: 02-18-2023 Consultation [facility] Start: 02-17-2023 Application of inter mittent pneumatic compression device [facility] Start: 02-17-2023 Following clinical p athway protocol [facility] Start: 02-17-2023 Admission procedure [facility] Start: 02-17-2023 Provision of overbed trapeze [facility] Start: 02-17-2023 Recommendation to co ntinue with treatment [facility] Start: 02-17-2023 Ambulation therapy management [facility] Start: 02-17-2023 Application of device [facility] Start: 02-17-2023 Application of elastic bandage [facility] Start: 02-17-2023 Assessment of risk o f venous thromboembolism [facility] Start: 02-17-2023 Catheterization of vein [facility] Start: 02-17-2023 Exercises [facility] Start: 02-17-2023 Following clinical p athway protocol [facility] Start: 02-17-2023 Introduction of urinary catheter [facility] Start: 02-17-2023 Measuring intake and output [facility] Start: 02-17-2023 Neurovascular assessment [facility] Start: 02-17-2023 Patient education [facility] Start: 02-17-2023 Procedure discontinued [facility] Start: 02-17-2023 Provision of activity privileges [facility] Start: 02-17-2023 Referral to occupati onal therapist [facility] Start: 02-17-2023 Referral to service [facility] Start: 02-17-2023 Vital signs measurements [facility] Start: 02-17-2023 Wound care [facility] Start: 02-17-2023 [facility] Start: 11-21-2022 Complete blood count [facility] Start: 11-20-2022 Complete blood count [facility] Start: 11-19-2022 Patient discharge [facility] Start: 11-18-2022 Oxygen therapy [facility] Start: 11-18-2022 Following clinical p athway protocol [facility] Start: 11-18-2022 Application of inter mittent pneumatic compression device [facility] Start: 11-18-2022 Consultation [facility] Start: 11-18-2022 Admission procedure [facility] Start: 11-18-2022 Recommendation to co ntinue with treatment [facility] Start: 11-18-2022 Provision of overbed trapeze [facility] Start: 11-18-2022 Ambulation therapy management [facility] Start: 11-18-2022 Application of device [facility] Start: 11-18-2022 Application of elastic bandage [facility] Start: 11-18-2022 Assessment of risk o f venous thromboembolism [facility] Start: 11-18-2022 Catheterization of vein [facility] Start: 11-18-2022 Exercises [facility] Start: 11-18-2022 Following clinical p athway protocol [facility] Start: 11-18-2022 Incentive spirometry [facility] Start: 11-18-2022 Introduction of urinary catheter [facility] Start: 11-18-2022 Measuring intake and output [facility] Start: 11-18-2022 Neurovascular assessment [facility] Start: 11-18-2022 Patient education [facility] Start: 11-18-2022 Procedure discontinued [facility] Start: 11-18-2022 Provision of activity privileges [facility] Start: 11-18-2022 Referral to occupati onal therapist [facility] Start: 11-18-2022 Referral to service [facility] Start: 11-18-2022 Vital signs measurements [facility] Start: 11-18-2022 Wound care [facility] Start: 11-18-2022 End: 11-18-2022 [facility] Start: 07-25-2022 Patient referral [facility] Work Phone: CBC W Auto Different ial panel - Blood [facility] Comprehensive metabo lic 1999 panel - Serum or Plasma [facility] Lipid 1996 panel - S dina or Plasma [facility] Natriuretic peptide. B prohormone N-Terminal [Mass/volume] in Serum or Plasma [facility] Patient referral [facility] Work Phone: [facility] Payers Date Payer Category Payer Unknown [id number] 2024 Self-pay 2024 Unknown [id number] Unknown [facility] [id number] Unknown Unknown [id number] 2.16.8 [id number] Unknown [id number] 2.16.8 [id number] Unknown [id number] 2.16.8 [id number] Unknown [id number] 2.16.8 [id number] Unknown [id number] 2.16.8 [id number] Unknown [id number] 2.16.8 [id number] Unknown [id number] 2.16.8 [id number] Unknown [id number] 2.16.8 [id number] Unknown [id number] 2.16.8 [id number] Social History Date Type Detail Facility Tobacco smoking status NHIS Unknown if ever smoked [facility] Work Phone: Start: 1945 Sex Assigned At Female [facility] Start: 10-21-2022 End: 04-01-2023 Tobacco smoking status NHIS Unknown if ever smoked [facility] Start: 03-16-2024 Tobacco smoking status NHIS Never smoked tobacco (finding) [facility] Sex Female [facility] NEGATED: Highlighted row [facility] Medical Equipment Procedure Code Equipment Code Equipment Origin al Text Equipment Identifier Dates Orthopaedic ceme nt, non-antimicrobial ()[id number] FDA Start: 11-18-2022 ([id number]) Uncoated knee fe mur prosthesis, metallic ()[id number] FDA Start: 11-18-2022 ([id number]) Uncoated knee ti danni prosthesis, metallic ()[id number] [id number] FDA Start: 11-18-2022 ([id number]) Polyethylene pat marc prosthesis ()[id number] [id number] FDA Start: 11-18-2022 ([id number]) Tibial insert ()[id number] [id number] FDA Start: 11-18-2022 ([id number]) Metal-backed pat marc prosthesis ()[id number] [id number] FDA Start: 02-17-2023 ([id number]) Coated knee femu r prosthesis ()[id number] [id number])[id number] FDA Start: 02-17-2023 ([id number]) Coated knee tibi a prosthesis ()[id number] [id number] FDA Start: 02-17-2023 ([id number]) Tibial insert ()[id number] [id number] FDA Start: 02-17-2023 Goals Date Patient Goal Desired Activity /State Functional Status Date Assessment Result Facility 02-19-2023 Functional status Chair [facility] Work Phone: 11-19-2022 Functional status Ambulates;Bathroom Priv ilege [facility] Work Phone: Mental Status Date Assessment Result Facility 02-18-2023 Cognitive function Voice/Name [facility] Work Phone: 11-19-2022 Cognitive function Level Of Cons ciousness Awake;Alert;Appropriate;Follow s Commands [facility] Work Phone: 11-19-2022 Cognitive function Voice/Name [facility] Work Phone: Clinical Notes 11-18-2022 to 05-31-2025 Note Date & Type Note Facility 05-31-2025 Evaluation note Diagnosis Onset Date Resolution Cardiomyopathy acute May 9:59am Chest pain acute May 31 9:59am FAYE (dyspnea on exertion) acute May 31, 2025 9:59am HTN (hypertension) chronic May 31, 2025 9:59am [facility] Work Phone: 1(493) 222-717108-06-2025 Evaluation note* Diagnosis Onset Date Resolution Status Admit Date Cardiomyopathy acute May 9:59am Chest pain acute May 31 9:59am FAYE (dyspnea on exertion) acute May 31, 2025 9:59am HTN (hypertension) chronic May 31, 2025 9:59am Cardiomyopathy acute July 10:14am Chest pain acute July 28, 2 025 10:14am FAYE (dyspnea on exertion) acute July 28, 2025 10:14am Hyperlipidemia acute July 10:14am HTN (hypertension) chronic Octobe r 2024 10:14am [facility] Work Phone: 1(982) 643-894204-27-[address] Christian [facility] February 19, 2023 9:17am Note Date/Time February 19, 2023 9:1 7am [facility] Medical Records Department [address] [place] [address] Progress Note - Hospitalist 02/19/23914 MR#: [id number] Acct: [id number] Name: HILARY MENA Rep #:[id number] : 1945 77 From: Mitul chen MD PCP: Karina Jones, DO Status:ADM I NO Location: [place] [address] Subjective Subjective Doing well, pain is well controlled and she tolerated the surgery better than not her left knee replacement Objective Data Objective Data Vital Signs: Vital Signs Temp Pulse Resp BP Pulse Ox O2 Del Method O2 Flow Rate 97.8 F 83 18 130/72 H 98 Room Air 4 02/19/23 08:14 02/19/23 08:14 02/19/23 08:14 02/19/23 08:14 02/19/23 08:14 02/19/23 08:14 02/17/23 15:00 Oxygen Flow Rate (L/min) 4 Oxygen Delivery Method Room Air Weight: 116 lb 13.52 oz Body Mass Index (BMI) 20.0 Intake & Output: Intake and Output for Last 24 Hours 02/18/23 02/19/23 02/20/23 03:59 03:59 03:59 Intake Total 3177.83 / 3177.83 [birth year] 983.33 / 983.33 Output Total 950 / 950 750 / 750 Balance 2227.83 / 2227.83 1197.75 / 1197.75 983.33 / 983.33 Lab / Micro Data Result Diagrams: 02/19/23 06:00 02/19/23 06:00 Labs: Laboratory Results - last 24 hr 02/19/23 06:00: WBC 7.9, RBC 3.05 L, Hgb 9.0 L, Hct 28.0 L, MCV 91.8, MCH 29.5, MCHC 32.1, RDW Std Deviation 44.9 H, RDW Coeff of Floyd 13.5, Plt Count 130 L, MPV11.6 02/19/23 06:00: Sodium 139, Potassium 3.6, Chloride 108 H, Carbon Dioxide 27.0, Anion Gap 4 L, BUN 19 H, Creatinine 1.15 H, Estim Creat Clear Calc 35.37, Est GFR (MDRD) Af Amer 59 L, Est GFR (MDRD) Non-Af 49 L, BUN/Creatinine Ratio 16.5, Glucose 95, Calcium 8.4 L Micro: Microbiology 02/07/23 09:56 Swab (Method) Nasal Screen MRSA/MSSA - Final Physical Exam Narrative General: Alert, Oriented x3, Cooperative, No apparent distress HEENT: Atraumatic, PERRLA, EOMI, Normocephalic Oral: Moist Mucosa Neck: Supple, No JVD Lungs: Clear to auscultation, Normal air movement, No rhonchi, No wheeze, No rales Cardiovascular: Regular rate, Regular Rhythm, Normal S1, Normal S2, No murmurs Abdomen: Soft, Non Tender, Non-Distended, No Hepato-splenomegaly Extremities: No edema, Capillary Refill Less than 3 Seconds Skin: Dressing on her right knee is CDI Musculoskeletal: No Tenderness to Palpation of Joints or Extremities Neurological: Cranial nerves II-XII grossly intact, Motor Exam 5/5 strength throughout, Sensory exam intact to light touch and pain Psych/Mental Status: Normal Affect, Appropriate Assessment & Plan Assessment/Plan (1) Elevated serum creatinine: PLAN: Plan 1. Status post right total knee 02/17/2023 ? Pain management per primary ? PT/OT 2. Elevated creatinine in the setting of CKD 3B ?And is improved to 1.15 ? Restart Entresto on 02/21/2023 ? Medically stable for discharge DVT: Eliquis Charges/Coding Visit Charges Office Visits / Consults: 91823 OV L3 Est 02/19/23 0917 <Electronically signed by Mitul Christian MD> Cosigner Signature (if applicable): CC: ~ Signed [facility] Work Phone: 1(477) 756-247104-27-[address] Christian [facility] February 19, 2023 9:15am Note Date/Time February 18, 2023 4:[address] [place] [address] Medical Records Department [address] [place] [address] Progress Note - Hospitalist 02/18/237 MR#: [id number] Acct: [id number] Name: HILARY MENA Rep #:[id number] : 1945 77 From: Mitul chen MD PCP: Karina Jones, DO Status:ADM I NO Location: [place] [id number] Subjective Subjective Doing well, pain is controlled. Consulted for medical management with acute renal insufficiency creatinine at baseline is around 1.3 and it climbed to 1.58 Objective Data Objective Data Vital Signs: Vital Signs Temp Pulse Resp BP Pulse Ox O2 Del Method O2 Flow Rate 97.8 F 78 20 H 149/59 H 98 Room Air 4 02/18/23 14:19 02/18/23 14:19 02/18/23 14:19 02/18/23 14:19 02/18/23 14:19 02/18/23 14:19 02/17/23 15:00 Oxygen Flow Rate (L/min) 4 Oxygen Delivery Method Room Air Weight: 116 lb 13.52 oz Body Mass Index (BMI) 20.0 Intake & Output: Intake and Output for Last 24 Hours 02/17/23 02/18/23 02/19/23 03:59 03:59 03:59 Intake Total 3177.83 / 3177.83 947.75 / 947.75 Output Total 950 / 950 750 / 750 Balance 2227.83 / 2227.83 197.75 / 197.75 Lab / Micro Data Result Diagrams: 02/19/23 06:00 02/19/23 06:00 Labs: Laboratory Results - last 24 hr 02/18/23 06:04: WBC 11.3 H, RBC 3.85 L, Hgb 11.1 L, Hct 35.4 L, MCV 91.9, MCH 28.8, MCHC 31.4 L, RDW Std Deviation 44.5 H, RDW Coeff of Floyd 13.3, Plt Count 190, MPV 10.7 02/18/23 06:04: Sodium 134 L, Potassium 4.4, Chloride 103, Carbon Dioxide 24.0, Anion Gap 7, BUN 20 H, Creatinine 1.58 H, Estim Creat Clear Calc 25.74, Est GFR (MDRD) Af Amer 41 L, Est GFR (MDRD) Non-Af 34 L, BUN/Creatinine Ratio 12.7, Glucose 139 H, Calcium 9.1 Micro: Microbiology 02/07/23 09:56 Swab (Method) Nasal Screen MRSA/MSSA - Final Physical Exam Narrative General: Alert, Oriented x3, Cooperative, No apparent distress HEENT: Atraumatic, PERRLA, EOMI, Normocephalic Oral: Moist Mucosa Neck: Supple, No JVD Lungs: Clear to auscultation, Normal air movement, No rhonchi, No wheeze, No rales Cardiovascular: Regular rate, Regular Rhythm, Normal S1, Normal S2, No murmurs Abdomen: Soft, Non Tender, Non-Distended, No Hepato-splenomegaly Extremities: No edema, Capillary Refill Less than 3 Seconds Skin: Dressing on her right knee is CDI Musculoskeletal: No Tenderness to Palpation of Joints or Extremities Neurological: Cranial nerves II-XII grossly intact, Motor Exam 5/5 strength throughout, Sensory exam intact to light touch and pain Psych/Mental Status: Normal Affect, Appropriate Assessment & Plan Assessment/Plan (1) Elevated serum creatinine: PLAN: Plan 1. Status post right total knee 02/17/2023 ? Pain management per primary ? PT/OT 2. Elevated creatinine in the setting of CKD 3B ? Her creatinine is slightly elevated to 1.58 with a baseline of around 1.3 ? We will start her on normal saline at 100 as she is currently on metformin every other day and she was also on Entresto ? We will hold the Entresto and would recommend holding for several days after discharge it is appear that she has a history of heart failure so unsure as to why this is the medication she is on for hypertension ? If renal function improves could likely plan for discharge in the morning DVT: Eliquis Charges/Coding Visit Charges Inpatient E&M: 76918 Subs Hosp L2 02/19/23 0915 <Electronically signed by Mitul Christian MD> Cosigner Signature (if applicable): CC: ~ Signed [facility] Work Phone: 1(333) 603-725204-27-[address] Esquivel [facility] February 19, 2023 8:28am Note Date/Time February 18, 2023 12: 43pm [facility] Medical Records Department [address] [place] [address] Instructions for Home/Discharge Instructions 02/18/23 1242 MR#: [id number] Acct: [id number] Name: HILARY MENA Rep #:[id number] : 1945 77 From: Hugo Esquivel DO PCP: Karina Jones DO Status:ADM I NO Discharge Instructions Diet Discharge Diet: No restrictions Activity Weight Bearing Status: Weight bearing as tolerated Dressing / Incision Call your doctor if you observe: Shortness of breath and Chest pain Additional Dressing/Incision Instructions:: Ice and elevate lower extremities 2 weeks while not ambulating. Ambulation is encouraged. Weight bearing as tolerated. Use assistive devise for stability. Encourage FULL knee extension and flexion 1 time EVERY time you get up and down and MULTIPLE times per day. No showering 72 hours after surgery. Begin showering postop day #3. Remove the dressing prior to shower and gently wash with warm water and antibacterial soap then pat dry and place abdominal pad (or plain gauze) and KONSTANTIN hose over top. This is to be done daily. Do not submerge for 3 weeks. If not showering daily after the initial 72 hours then you must clean incision and change dressing daily. Do not allow animals near the incision area. Keep clean. Follow anti-coagulation recommendations as prescribed. Do not take any NSAIDs while on blood thinner. Do not take any additional narcotic pain medication other than what was prescribed on your surgery day without discussing with physician. Narcotic medication can be addictive. Do not drink alcohol while taking narcotics. Supplement narcotic prescription with acetaminophen 1000 mg 4 times aday. Start physical therapy. If you are not currently scheduled for physical therapy or you are unsure of appointment time please call office [facility] to arrange. Call Dr. Esquivel with any concerns. Follow Up Care Please Follow Up With: Hugo Esquivel DO When: 2 weeks Test Results: Test results from this visit will be discussed in further detail at your follow- up appointment, if applicable. Discharge Plan Admission Admit Date/Time: 02/17/23 14:03 Primary Reason for Your Visit: Right total knee arthroplasty Attending Provider: Hugo Esquivel Primary Care Provider: Karina Jones Consulting Providers: Tone Ramos ; Mitul Christian Discharge Orders/Prescriptions Prescriptions: New Eliquis 2.5 mg tablet 2.5 mg PO BID Qty: 60 0RF oxycodone 5 mg tablet 5 - 10 mg PO Q4H PRN (Reason: pain) 7 Days Qty: 60 0RF ondansetron 4 mg tablet,disintegrating 4 mg PO Q8H PRN (Reason: nausea and vomiting) Qty: 15 0RF Continued metformin 500 mg tablet 500 mg PO QODAY Entresto 24-26 mg tablet 1 tab PO DAILY Label Comments: TAKE 1 TABLET BY MOUTH EVERY OTHER DAY acetaminophen 500 mg tablet 1,000 mg PO Q6H PRN PRN (Reason: Pain) Discontinued ibuprofen 200 mg tablet 200 mg PO Q6H PRN (Reason: Pain) Referrals / Follow Up: Karina Jones DO [Primary Care Provider] - Disposition Disposition (needs filled in before D/C Order can be placed): Home, Self Care 02/19/23 0828<Electronically signed by Hugo Esquivel DO>Hugo Esquivel DO CC: Dr. Tone Ramos MD; Dr. Mitul Christian MD; Karina Jones DO ~ Signed [facility] Work Phone: 1(137) 469-589004-26-[address] Esquivel [facility] February 18, 2023 12:42pm Note Date/Time February 18, 2023 12: 41pm [facility] Medical Records Department [address] [place] [address] Progress Note - Orthopedic 02/18/23 1238 MR#: [id number] Acct: [id number] Name: HILARY MENA Rep #:[id number] : 1945 77 From: Hugo Esquivel DO PCP: Karina Jones DO Status:ADM I NO Location: MA3 HA573-1 Subjective Subjective Patient seen and examined with her son at bedside. He states she is doing well better than she did with her last total knee. She denies any fevers chills shortness of breath or chest pain. She does get some nausea that is improved and some lightheadedness. She ambulated well with physical therapy. Objective Data Objective Data Vital Signs: Vital Signs Temp Pulse Resp BP Pulse Ox O2 Del Method O2 Flow Rate 98.0 F 71 18 125/74 H 100 Room Air 4 02/18/23 07:42 02/18/23 07:42 02/18/23 07:42 02/18/23 07:42 02/18/23 07:42 02/18/23 07:42 02/17/23 15:00 Oxygen Flow Rate (L/min) 4 Oxygen Delivery Method Room Air Weight: 116 lb 13.52 oz Body Mass Index (BMI) 20.0 Intake & Output: Intake and Output for Last 24 Hours 02/16/23 02/17/23 02/18/23 23:59 23:59 23:59 Intake Total 3127.83 / 3127.83 397.75 / 397.75 Output Total 950 / 950 750 / 750 Balance 2177.83 / 2177.83 -352.25 / -352.25 Lab / Micro Data Result Diagrams: 02/18/23 06:04 02/18/23 06:04 Labs: Laboratory Results - last 24 hr 02/18/23 06:04: WBC 11.3 H, RBC 3.85 L, Hgb 11.1 L, Hct 35.4 L, MCV 91.9, MCH 28.8, MCHC 31.4 L, RDW Std Deviation 44.5 H, RDW Coeff of Floyd 13.3, Plt Count 190, MPV 10.7 02/18/23 06:04: Sodium 134 L, Potassium 4.4, Chloride 103, Carbon Dioxide 24.0, Anion Gap 7, BUN 20 H, Creatinine 1.58 H, Estim Creat Clear Calc 25.74, Est GFR (MDRD) Af Amer 41 L, Est GFR (MDRD) Non-Af 34 L, BUN/Creatinine Ratio 12.7, Glucose 139 H, Calcium 9.1 Micro: Microbiology 02/07/23 09:56 Swab (Method) Nasal Screen MRSA/MSSA - Final Radiography Diagnostic Testing: Radiology Impression Knee X-Ray 02/17/23 14:40 IMPRESSION: Satisfactory postop changes of right knee prosthesis. Electronically Signed: Kevon Zhu MD at 15:35 EDT Reading Location ID and State: [facility] / [place] Tel , Service support , Physical Exam Const no apparent distress Extremity Extremity Narrative: Dressings clean dry intact compartments soft neurovascular intact Assessment & Plan Assessment/Plan (1) S/P total knee arthroplasty: (2) Acute renal insufficiency: PLAN: Plan Postop day #1 right total knee arthroplasty Overall doing well pain controlled PT OT weightbearing as tolerated Oxycodone 5 to 10 mg every 4 hours DVT prophylaxis SCDs KONSTANTIN hose Eliquis 2.5 mg twice daily Acute renal insufficiency noted on labs hospitalist consulted started normal saline 100 cc/h we will recheck kidney function tomorrow morning as long as not worsening and improving patient may be discharged home tomorrow And begin outpatient physical therapy. First dressing change to be performed on Thursday prior to for shower and then incisions to be clean daily with antibacterial soap and warm water dressing should be changed daily at that point. 02/18/23 1242 <Electronically signed by Hugo Esquivel DO> Cosigner Signature (if applicable): CC: ~ Signed [facility] Work Phone: 1(446) 824-669304-25-[address] [facility] 02-17-2023 History and physical note Author Dr. Esquivel [facility] February 17, 2023 10:43am Note Date/Time February 17, 2023 10: 43am [facility] Medical Records Department [address] [place] [address] History & Physical Exam 02/17/23 1043 MR#: [id number] Acct: [id number] Name: HILARY MENA Rep #:[id number] : 1945 77 From: Hugo Esquivel DO PCP: Karina Jones DO Status:REG S DC Location: [place] [address] History and Physical Date of Admission: 02/17/23 [facility] [address] [place] [address] [address] [place] [address] OFFICE VISIT Date of Service:? 12/31/22 MR#: [id number] Acct: [id number] Name:? HILARY MENA Rep #: [id number] : 1945 ? ? Provider: Dr. Hugo Esquivel DO Age/Sex:? 77/F ? ? [place] [email or web address] Status: Signed with Addenda ADDENDUM by Dr. Hugo Esquivel DO on 02/02/23 at 1004 Assessment and Plan Assessment and Plan (1) Right knee DJD: ?Status:?Acute ? ? ? Orders: Orders Knee 3 Views 12/31/22 Z96.659 - Presence of unspecifi ed artificial knee joint ? Comments Comments: Patient is 77 years old and is frail, she is diabetic she has a language barrierand require inpatient stay for her last knee replacement this past October, therefore requesting inpatient admission again for this procedure. 02/02/23 1004 <Electronically signed by Hugo Esquivel DO> Date Hugo Esquivel DO cc: ? ~* Signed Intake Vital Signs ? 11/18/2315:40 Height 5 ft 5 in Intake Visit Reasons:?LEFT KNEE Chief Complaint: left knee Accompanied by: Son Is patient in pain?: No Allergies No Known Allergies Allergy (Verified 11/18/22 10:17) Medications metformin 500 mg tablet 500 mg PO DAILY DIABETES 07/25/22 [History Confirmed 12/31/22] valsartan 40 mg tablet 40 mg PO DAILY BP 07/30/22 [History Confirmed 12/31/22] acetaminophen 500 mg tablet 1,000 mg PO Q6H PRN #100 tabs 11/19/22 [Rx Confirmed 12/31/22] ibuprofen 200 mg tablet 200 mg PO Q6H PRN 12/31/22 [History Confirmed 12/31/22] PFSH Medical History?(Updated 12/31/22 @ 12:[address] Hugo Esquivel DO) Diabetes Edema Hypertension Non-smoker Pain Wears glasses Wears partial dentures Weight loss Surgical History?(Updated 11/19/22 @ 11:[address] Hugo Esquivel DO) Hx of left cataract extraction Hx of right cataract extraction Social History? Smoking Status:? Never smoker HPI LEFT KNEE Details: Parts of this documentation were recorded by a scribe, this documentation accurately reflects the service provided and the decisions made by me, Dr. Hugo Esquivel DO 12/31/22 1128. HILARY GELLER is a 77 year old F here today for? 6 week post op from left TKA. Son is here today to translate. She states that the left knee has improved since prior to surgery. Right knee pain has worsened the last 6 months. Denies any previous injections or surgery on the right knee. Ortho Exam General General: Yes no acute distress Neurologic: Yes alert and Yes oriented x3 Psychologic: Yes reasonable and appropriate Right Knee Skin/Wound: Yes CDI, No erythema, No ecchymosis and No swelling Homans Sign: No Knee ROM: No ROM-Extension -20 to 0 (26) and No ROM-Flexion 0-140 (115) Examination: Yes Med jt line tenderness and Yes Lat jt line tenderness Stability: NML: Anterior Drawer, NML: Posterior Drawer, NML: Valgus 0, NML: Valgus 30, NML: Varus 0 and NML: Varus 30 Patella Translation: 1 Left Knee Skin/Wound: Yes healed, No ecchymosis, No erythema and No swelling Homans Sign: No Knee ROM: No ROM-Extension -20 to 0 (lacking ) and No ROM-Flexion 0-140 (115) Patella Translation: 1 Head: Normocephalic Atraumatic Chest: symmetrical rise, non-labored breathing, no audible wheeze Abdomen: no guarding, non-rigid Supplemental Info 12/31/2022 x-ray left knee: Status post total knee arthroplasty with good interfaces and position 07/30/2022 x-ray left knee: advanced medial knee arthrosis [id number] subchondral cystic changes joint space collapse and bone spurs moderate patellofemoral arthrosis 07/30/2022 x-ray right knee: Moderate to severe knee arthrosis worse medial compartment Coding Level of Care Code Off vis,est,level 3 Diagnoses Right knee DJD? M17.11 Assessment and Plan Assessment and Plan (1) Right knee DJD: ?Status:?Acute ? ? ? Orders: Orders Knee 3 Views Today Z96.659 - Presence of unspecified artificial knee joint ? Plan personally reviewed patients xrays of the left knee. Educated that there is no sign of loosening or infection seen on xray. Educated that she should continue to work on ROM and she can continue to improve for up to 2 years. She will need prophylactic ATBs for life prior to any dental work/cleanings. reviewed X-rays of patient's right knee? from 07/30/2022.? There is no obvious fracture, dislocation, or lucency noted. Educated that she has osteoarthritis ofthe right knee. Treatment options are do nothing or bracing or PT or injection or TKA.?Risks, benefits and alternatives of surgery reviewed including but not limited to bleeding, infection, nerve, artery and/or tissue damage, fracture, VTE, mechanical feel of the knee, continued pain, stiffness and expected post-operative course. She wishes to proceed with right TKA [facility]. Will schedule the surgery for 02/17/23. She does wish to have the IOVERA agian for this right knee. Will provide soap and drinks at IOVERA appointment. Follow up for IOVERA treatment or sooner if pain, swelling, numbness or associated symptoms, or concerns develop.? All questions answered. Patient in agreement of plan. 12/31/22 1250 <Electronically signed by Hugo Esquivel DO> Date Hugo Esquivel DO Cosigner Signature: Date (if applicable) ? CC: ? ~ I have examined the patient and the H&P has been reviewed. There are no clinicalchanges since date of exam. 02/17/23 1043 <Electronically signed by Hugo Esquivel DO> Cosigner Signature (if applicable): CC: Dr. Hugo Esquivel DO; Karina Jones DO~ Signed [facility] Work Phone: 1(361) 613-908303-27-2023 Discharge summary Author Orion Ball [facility] January 19, 2023 10:28am Note Date/Time January 19, 2023 10: 28am [facility] Physical Therapy [facility] [address] [place] [address] / REHABILITATION SERVICES DISCHARGE SUMMARY MR#: [id number] Acct: [id number] Name: HILARY MENA Rep #: [id number] : 1945 77 From: Orion Ball PT, ATC Referring Dr.: Dr. Hugo Esquivel DO Status: REG RCR Insurance: [facility] SELF PAY INSURANCE It has been my pleasure to treat HILARY GELLER referred by Dr. Hugo Esquivel DO, with the diagnosis of L TKA 11/18/22 for a total of 10 visit(s). Discharge Date: Please see the following information for a summary of their discharge status. Subjective: Pt is ready for discharge. L knee Pain Intensity (Out of 10): 3 % Improvement: 70 Objective/Function: L knee pain ranges from 3-6/10. L knee ROM: 0-30-110. L knee MMT: flex= 11, ext= 12 #F. Tu.58 Goal 1:: Decrease L knee pain x 50 % to aid with helping pt to sleep for 7-8 hours Goal Progress: Goal Met Goal 2:: Increase L knee ROM x 30 degrees to aid with restoring a more normalized gait pattern Goal Progress: Goal Met Goal 3:: Increase L knee strength x 20#F to aid with stair negotiation Goal Progress: Goal Met Goal 4:: I with HEP Goal Progress: Goal Met Plan: Discharge to HEP If there are questions or concerns regarding this patient's physical therapy, please feel free to call me at [phone]. Thank you for the referral of thispatient. Sincerely, Orion Ball, PT, ATC Balance/Gait/Functional tests - Balance/Special Test Scores Lower Extremity Functional Score: 43 <Electronically signed by Orion Ball PT, ATC> 01/19/23 1028 CC: JOE King; Dr. Hugo Esquivel, DO ~ [facility] Signed [facility] Work Phone: 1([phone]) 843-561101-25-[address] Cannon [facility] November 19, 2022 1:45pm Note Date/Time November 19, 2022 1 :11pm [facility] Medical Records Department [address] [place] [address] Progress Note - Hospitalist 11/19/22 1302 MR#: [id number] Acct: [id number] Name: HILARY MENA Rep #:[id number] : 1945 77 From: Johann Casiano PCP: JOE Espinal Status:ADM IN Location: [place] [address]-1 Subjective Subjective Patient complain of right-sided chest pain nonradiating. Had left knee arthroplasty on 11/18 Objective Data Objective Data Vital Signs: Vital Signs Temp Pulse Resp BP Pulse Ox O2 Del Method O2 Flow Rate 97.5 F L 66 18 121/53 H 99 Room Air 2 11/19/22 08:29 11/19/22 08:29 11/19/22 08:29 11/19/22 08:29 11/19/22 11:02 11/19/22 11:02 11/19/22 03:00 Oxygen Flow Rate (L/min) 2 Oxygen Delivery Method Room Air Weight: 115 lb 8.356 oz Body Mass Index (BMI) 19.2 Intake & Output: Intake and Output for Last 24 Hours 11/17/22 11/18/22 11/19/22 23:59 23:59 23:59 Intake Total 1682 / 1682 50 / 50 Balance 1682 / 1682 50 / 50 Lab / Micro Data Result Diagrams: 11/19/22 02:25 11/19/22 02:25 Labs: Laboratory Results - last 24 hr 11/18/22 15:03: POC Glucose 121 H 11/18/22 17:11: POC Glucose 166 H 11/18/22 20:00: Troponin I High Sens 5 11/18/22 21:37: POC Glucose 149 H 11/18/22 22:20: Troponin I High Sens 4 11/19/22 02:25: WBC 8.2, RBC 3.57 L, Hgb 10.3 L, Hct 33.1 L, MCV 92.7, MCH 28.9,MCHC 31.1 L, RDW Std Deviation 45.1 H, RDW Coeff of Floyd 13.2, Plt Count 153, MPV11.2 11/19/22 02:25: Sodium 139, Potassium 5.1, Chloride 104, Carbon Dioxide 26.0, Anion Gap 9, BUN 19 H, Creatinine 1.39 H, Estim Creat Clear Calc 28.93, Est GFR (MDRD) Af Amer 48 L, Est GFR (MDRD) Non-Af 39 L, BUN/Creatinine Ratio 13.7, Glucose 136 H, Calcium 9.0 11/19/22 02:25: Troponin I High Sens 5 11/19/22 04:01: POC Glucose 122 H 11/19/22 11:55: POC Glucose 97 Micro: Microbiology 10/31/22 07:36 Swab (Method) Nasal Screen MRSA/MSSA - Final Radiography Diagnostic Testing: Radiology Impression Knee X-Ray 11/18/22 14:00 IMPRESSION: Status post total knee replacement. There is good alignment. Postoperative soft tissue changes. Electronically Signed: Som Artis MD at 15:26 EST , Physical Exam Narrative Seen and examined. Patient does not have chest pain or shortness of breath. 3 serial troponins arenegative. Chest pain was more right-sided. Physical exam General: Alert, Oriented x3, Cooperative HEENT: Atraumatic, PERRLA, EOMI, Normocephalic Oral: Oral mucosa moist. No Gingival or Mucosal Lesions/ Ulcerations Neck: Supple, No JVD, Negative Carotid Bruits Lungs: Air entry equal in bilateral lung bases. No crepitation/rhonchi Cardiovascular: Regular rate, Regular Rhythm, Normal S1, Normal S2, No murmurs Abdomen: Bowel Sounds Present, Soft, Non Tender, Non-Distended : No renal angle tenderness. No suprapubic tenderness. Extremities: No edema, Capillary Refill Less than 3 Seconds Skin: No rashes, No breakdown Musculoskeletal: No Tenderness to Palpation of Joints or Extremities Neurological: Cranial nerves II-XII grossly intact, DTR 2+/4 and Symmetrical, Neuro grossly intact Psych/Mental Status: Normal Affect, Appropriate. Assessment & Plan Assessment/Plan (1) Osteoarthritis of left knee: (2) HTN (hypertension): PLAN: Plan This is a 27-year-old lady admitted for elective left knee arthroplasty. The patient had chronic left knee degenerative joint disease and had CT-guided robotic assisted left total knee arthroplasty. 1. Chronic left knee DJD status post robotic assisted left knee arthroplasty. Patient has surgical dressing and ice bag. PT and OT ordered. Pain control. Continue incentive spirometry. Labs reviewed. Hemoglobin 10.3, decreased from 13.1 on 10/31. Mild acute blood loss anemia. 2. Atypical right-sided chest pain: Chest pain was right-sided, nonreproducible. 3 serial troponins are negative. Noncardiac chest pain probably due to positional musculoskeletal. 3. #Hypertension; on valsartan CKD stage 3B: Creatinine 1.39 slightly elevated from baseline Which is around 1.3. In the past also patient creatinine went up to 1.5 in July 2022. #Type 2 diabetes mellitus: on metformin. ISS. Acucchecks ACHS. Glucose is appropriately controlled. DVT prophylaxis: as per primary team, on eliquis. Patient is medically stable for discharge. Charges/Coding Visit Charges Inpatient E&M: 12173 Subs Hosp L2 11/19/22 1311 <Electronically signed by Johann Cannon MD> Cosigner Signature (if applicable): CC: ~ Signed ADDENDUM by Dr. Johann Cannon MD on 11/19/22 at 1345 Addendum Twelve-lead EKG from 18 November 2022 reviewed. Normal sinus rhythm [address]-T changes from previous EKG of 31 October 2022 except rate was as return junctional rhythm. Acute coronary syndrome ruled out. 11/19/22 1345<Electronically signed by Johann Cannon MD> Cosigner Signature (if applicable): cc: ~* Signed [facility] Work Phone: 1([phone]) 600-953301-25-[address] Mccullough [facility] November 19, 2022 1:20pm Note Date/Time November 18, 2022 4 :19pm [facility] [address] [place] [address] Consultation - Hospitalist 11/18/22 1613 MR#: [id number] Acct: [id number] Name: HILARY MENA Rep #:[id number] : 1945 77 From: Lindsey Mccullough MD PCP: Lisbet King [employer] [employer] Status:ADM IN Location: MA3 [id number] Assessment & Plan Assessment/Plan (1) Osteoarthritis of left knee: (2) HTN (hypertension): PLAN: Plan #Osteoarthritis s/p left knee arthroplasty * today is POD 1 * management as per primary team orthopedics * PT.OT consult * fall precautions * incentive spirometry * #Chest pain * patient complaining of chest pain during review. Chest pain was right sided, and nonradiating. * she described it as pressure like, and said it wasnt reproducible with palpation * will get EKG and cycle troponin to ensure this is noncardiac. * #Hypertension; on valsartan #Type 2 diabetes mellitus: on metformin. ISS. Acucchecks ACHS DVT prophylaxis: as per primary team, on eliquis. Thank you for the courtesy of the consult,. We will continue to follow with you. HPI Consult Data Date of Consult: 11/18/22 HPI Narrative Reason for Consultation: medical management HPI Narrative: HILARY GELLER, is a 77 F with a past medical history as outlined was admitted to the service of orthopedics for knee replacement. Patient speaks only [place] and her family served as automated equipment engineer technician. She had left knee CT-guided robotic assisted arthroplasty today. Today's postop day 0. Hospitalist servicewas consulted for medical management. Patient seen and examined. She was lying comfortably in bed. Pain was well controlled. She did complain of some nausea and retching but no vomiting. She denied any fever, chills, cough or any other symptoms. She did complain of some pain in the right side of her chest which was not pressure like and nonpleuritic. She denied any shortness of breath of breath. Pain was not reproducible with palpation. She denied any fever, any chills, any nausea vomiting or diarrhea. Review of systems otherwise negative. [facility] Medical History (Updated 11/18/22 @ 16:[address] Lindsey Mccullough MD) Diabetes Edema Hypertension Non-smoker Pain Wears glasses Wears partial dentures Weight loss Home Medications metformin 500 mg tablet 500 mg PO DAILY DIABETES 07/25/22 [History Last Taken 11/17/22 09:30] valsartan 40 mg tablet 40 mg PO DAILY BP 07/30/22 [History Last Taken 11/17/22 09:30] Allergy/AdvReac Type Severity Reaction Status Date / Time No Known Allergies Allergy Verified 11/18/22 10:17 Surgical History (Updated 10/30/22 @ 10:58 by Annie Thompson) Hx of left cataract extraction Hx of right cataract extraction Social History Smoking Status: Never smoker ROS Constitutional Constitutional: Denies chills, fatigue, fever(s), malaise or weakness Eyes Eyes: Denies change in vision ENT HEENT: Denies dysphagia, headache(s) or sore throat Cardiovascular Cardiovascular: Reports chest pain; Denies dyspnea on exertion, edema, lightheadedness, orthopnea, palpitations, rapid heart rate or syncope Respiratory/Chest Respiratory/Chest: Denies cough, productive cough or shortness of breath at rest Gastrointestinal Gastrointestinal: Denies abdominal pain, constipation, diarrhea, melena, nausea or vomiting Genitourinary Genitourinary: Denies burning urination or dysuria Musculoskeletal Musculoskeletal: Reports joint pain; Denies arthralgias Neurologic Neurologic: Denies confusion, dizziness, focal weakness, seizures or syncope Psychiatric Psychiatric: Denies anxiety or depression Hematologic/Lymphatic Hematologic/Lymphatic: Denies anemia Physical Exam Const alert, oriented x3 and no apparent distress General Appearance: cooperative HEENT normocephalic, head/scalp atraumatic, hearing grossly normal bilaterally and moist oral mucous membranes Mouth: oral and palatal mucosa normal Eyes PERRL and EOMs intact bilaterally Neck no lymphadenopathy, supple and no JVD Resp normal respiratory effort, no retractions and no use of accessory muscles Cardio regular rate, regular rhythm, S1 normal heart sound, S2 normal heart sound and no murmurs GI normal to inspection, nondistended, normoactive bowel sounds, soft to palpation and non-tender Extremity Extremity Narrative: left knee wrapped has intact dressing. Neuro oriented x3, CN's II-XII intact bilaterally, moves all extremities and no focal motor deficits Sensorium / Orientation: awake and alert Motor Exam: strength 5/5 throughout Psych affect normal Lab / Micro Data Result Diagrams: 10/31/22 07:36 10/31/22 07:36 Labs: Laboratory Results - last 24 hr 11/18/22 09:45: Blood Type A POSITIVE, Antibody Screen NEGATIVE 11/18/22 09:49: POC Glucose 84 11/18/22 15:03: POC Glucose 121 H Radiology Impression Knee X-Ray 11/18/22 14:00 IMPRESSION: Status post total knee replacement. There is good alignment. Postoperative soft tissue changes. Electronically Signed: Som Artis MD at 15:26 EST , Charges/Coding Visit Charges Office Visits / Consults: [id number] IP Consult L4 11/19/22 1320 <Electronically signed by Lindsey Mccullough MD> Cosigner Signature (if applicable): CC: JOE King; Dr. Hugo Esquivel DO; Dr. Johann Cannon MD~ Signed [facility] Work Phone: 1(773) 690-854601-25-[address] Esquivel [facility] November 19, 2022 11:54am Note Date/Time November 19, 2022 1 1:54am [facility] Medical Records Department [address] [place] [id number] Discharge Summary 11/19/22 1151 MR#: [id number] Acct: [id number] Name: HILARY MENA Rep #:[id number] : 1945 77 From: Hugo Esquivel DO PCP: JOE Espinal Status:ADM IN Location: [place] [id number] Providers Date of Admission: 11/18/22 Primary Care Physician: JOE Espinal Consultations 11/18/22 14:07 Consult: Hospitalist Routine Consulting Provider: Lindsey Mccullough Reason for Consult: Comanagement /medical management sugar control EMERGENT Consult: No MD Notified: Yes Date Notified: 11/18/22 Time Notified: 16:12 Method of Notification: Text Reason For Visit: LEFT TOTAL KNEE ROBOTIC Diagnosis Discharge Diagnosis (1) S/P total knee arthroplasty: Status: Acute Code(s): Z96.659 - Presence of unspecified artificial knee joint Plan Postop day #1 left total knee arthroplasty patient is doing well pain controlledwishes to be discharged home set up for outpatient physical therapy on Thursday. 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 Patient underwent the aformentioned procedure on the admission date without any intraoperative complications. Patient did receive pre-and postoperative antibiotics which were discontinued within 23 hours postoperatively. Patient did receive [spinal anesthesia as well as an adductor canal block postoperatively]. pain was controlled with IV and transition to p.o. pain medication Patient will be discharged home with oxycodone and will continue Tylenol as well. Patient had minimal intraoperative blood loss and 2gm tranexamic acid was administered there was no need for postoperative blood transfusion Patients vital signs remained stable. Patient was started on both mechanical and chemical DVT per prophylaxis postoperatively in the form of SCDs KONSTANTIN hose and [Eliquis 2.5 mg twice daily for which she will continue for 2 additional weeks post hospital discharge]. thigh high konstantin hose placed over topof the meplix silver dressing. This should be removed 72 hrs post operatively and showering begun daily at that time with warm water and antibacterial soap. not to submerge for 3 weeks. Patient had nausea on postop day #0 which resolvedon postop day #1 she also had mild chest discomfort on postop day #0 which resolved on postop day #1 and had negative cardiac enzymes , patient and son both requesting to be discharged home on postop day #1 , dressing to be remain intact undisturbed for 72 hours then patient to change dressing daily after first dressing change. Patient will follow-up in the office in 2 weeks. No intrahospital complications. Weight / BMI Weight Weight: 115 lb 8.356 oz Body Mass Index (BMI) 19.2 ABG / Lab / Microbiology Data Result Diagrams: 11/19/22 02:25 11/19/22 02:25 Laboratory: Laboratory Results - last 24 hr 11/18/22 15:03: POC Glucose 121 H 11/18/22 17:11: POC Glucose 166 H 11/18/22 20:00: Troponin I High Sens 5 11/18/22 21:37: POC Glucose 149 H 11/18/22 22:20: Troponin I High Sens 4 11/19/22 02:25: WBC 8.2, RBC 3.57 L, Hgb 10.3 L, Hct 33.1 L, MCV 92.7, MCH 28.9,MCHC 31.1 L, RDW Std Deviation 45.1 H, RDW Coeff of Floyd 13.2, Plt Count 153, MPV11.2 11/19/22 02:25: Sodium 139, Potassium 5.1, Chloride 104, Carbon Dioxide 26.0, Anion Gap 9, BUN 19 H, Creatinine 1.39 H, Estim Creat Clear Calc 28.93, Est GFR (MDRD) Af Amer 48 L, Est GFR (MDRD) Non-Af 39 L, BUN/Creatinine Ratio 13.7, Glucose 136 H, Calcium 9.0 11/19/22 02:25: Troponin I High Sens 5 11/19/22 04:01: POC Glucose 122 H Microbiology: Microbiology 10/31/22 07:36 Swab (Method) Nasal Screen MRSA/MSSA - Final Radiography Diagnostic Testing: Radiology Impression Knee X-Ray 11/18/22 14:00 IMPRESSION: Status post total knee replacement. There is good alignment. Postoperative soft tissue changes. Electronically Signed: Som Artis MD at 15:26 EST , D/C Instructions Weight Bearing Status: Full weight bearing Call your doctor if you observe: Shortness of breath and Chest pain Additional Dressing/Incision Instructions: Ice and elevate lower extremities 2 weeks while not ambulating. Ambulation is encouraged. Weight bearing as tolerated. Use assistive devise for stability. Encourage FULL knee extension and flexion 1 time EVERY time you get up and down and MULTIPLE times per day. No showering 72 hours after surgery. Begin showering postop day #3. Remove the dressing prior to shower and gently wash with warm water and antibacterial soap then pat dry and place abdominal pad (or plain gauze) and KONSTANTIN hose over top. This is to be done daily. Do not submerge for 3 weeks. If not showering daily after the initial 72 hours then you must clean incision and change dressing daily. Do not allow animals near the incision area. Keep clean. Follow anti-coagulation recommendations as prescribed. Do not take any NSAIDs while on blood thinner. Do not take any additional narcotic pain medication other than what was prescribed on your surgery day without discussing with physician. Narcotic medication can be addictive. Do not drink alcohol while taking narcotics. Supplement narcotic prescription with acetaminophen 1000 mg 4 times aday. Start physical therapy. If you are not currently scheduled for physical therapy or you are unsure of appointment time please call office [facility] to arrange. Call Dr. Esquivel with any concerns. Please Follow Up With: Hugo Esquivel DO When: 2 weeks Meaningful Use Info Meaningful Use Diagnoses (Choose all that apply): None applicable Discharge Plan Admission Admit Date/Time: 11/18/22 08:54 Primary Reason for Your Visit: Left total knee arthroplasty Attending Provider: Hugo Esquivel Primary Care Provider: Lisbet King NP Consulting Providers: Johann Cannon Discharge Orders/Prescriptions Prescriptions: New acetaminophen [acetaminophen] 500 mg tablet 1,000 mg PO Q6H PRN Qty: 100 0RF Eliquis 2.5 mg tablet 2.5 mg PO BID Qty: 30 0RF oxycodone 5 mg tablet 5 - 10 mg PO Q4H PRN (Reason: pain) 5 Days Qty: 60 0RF Continued metformin 500 mg tablet 500 mg PO DAILY valsartan 40 mg tablet 40 mg PO DAILY Referrals / Follow Up: Lisbet King NP, SWITCH ENGINEER-C [Primary Care Provider] - Disposition Disposition (needs filled in before D/C Order can be placed): Home, Self Care 11/19/22 1154 <Electronically signed by Hugo Esquivel DO> Cosigner Signature (if applicable): CC: AKSSANDRA-Kike King; Dr. Hugo Esquivel DO~ Signed [facility] Work Phone: [phone]) 718-804801-25-[address] Esquivel [facility] November 19, 2022 11:51am Note Date/Time November 19, 2022 1 1:48am [facility] Medical Records Department [address] [place] [address] Instructions for Home/Discharge Instructions 11/19/22 1147 MR#: [id number] Acct: [id number] Name: HILARY MENA Rep #:[id number] : 1945 77 From: Hugo Esquivel DO PCP: JOE Espinal Status:ADM IN Discharge Instructions Activity Weight Bearing Status: Full weight bearing Dressing / Incision Call your doctor if you observe: Shortness of breath and Chest pain Additional Dressing/Incision Instructions:: Ice and elevate lower extremities 2 weeks while not ambulating. Ambulation is encouraged. Weight bearing as tolerated. Use assistive devise for stability. Encourage FULL knee extension and flexion 1 time EVERY time you get up and down and MULTIPLE times per day. No showering 72 hours after surgery. Begin showering postop day #3. Remove the dressing prior to shower and gently wash with warm water and antibacterial soap then pat dry and place abdominal pad (or plain gauze) and KONSTANTIN hose over top. This is to be done daily. Do not submerge for 3 weeks. If not showering daily after the initial 72 hours then you must clean incision and change dressing daily. Do not allow animals near the incision area. Keep clean. Follow anti-coagulation recommendations as prescribed. Do not take any NSAIDs while on blood thinner. Do not take any additional narcotic pain medication other than what was prescribed on your surgery day without discussing with physician. Narcotic medication can be addictive. Do not drink alcohol while taking narcotics. Supplement narcotic prescription with acetaminophen 1000 mg 4 times aday. Start physical therapy. If you are not currently scheduled for physical therapy or you are unsure of appointment time please call office [facility] to arrange. Call Dr. Esquivel with any concerns. Follow Up Care Please Follow Up With: Hugo Esquivel DO When: 2 weeks Test Results: Test results from this visit will be discussed in further detail at your follow- up appointment, if applicable. Discharge Plan Admission Admit Date/Time: 11/18/22 08:54 Primary Reason for Your Visit: Left total knee arthroplasty Attending Provider: Hugo Esquivel Primary Care Provider: Lisbet King NP Consulting Providers: Johann Cannon Discharge Orders/Prescriptions Prescriptions: New acetaminophen [acetaminophen] 500 mg tablet 1,000 mg PO Q6H PRN Qty: 100 0RF Eliquis 2.5 mg tablet 2.5 mg PO BID Qty: 30 0RF oxycodone 5 mg tablet 5 - 10 mg PO Q4H PRN (Reason: pain) 5 Days Qty: 60 0RF Continued metformin 500 mg tablet 500 mg PO DAILY valsartan 40 mg tablet 40 mg PO DAILY Referrals / Follow Up: Lisbet King NP, SWITCH ENGINEER-C [Primary Care Provider] - Disposition Disposition (needs filled in before D/C Order can be placed): Home, Self Care 11/19/22 1151<Electronically signed by Hugo Esquivel DO>Hugo Esquivel DO CC: EDERC Lisbet King; Dr. Johann Cannon MD ~ Signed [facility] Work Phone: 1(193) 586-711101-25-[address] Esquivel [facility] November 19, 2022 11:47am Note Date/Time November 19, 2022 1 1:46am [facility] Medical Records Department [address] [place] [address] Progress Note - Orthopedic 11/19/22 1144 MR#: [id number] Acct: [id number] Name: CUONG PERALES DUYENHILARY Rep #:[id number] : 1945 77 From: Hugo Esquivel DO PCP: JOE Espinal Status:ADM IN Location: [facility] [id number] Subjective Subjective Patient seen and examined with son at bedside who translates for her, she is doing well her pain is controlled she denies chest pain nausea or vomiting todayshe admits to some light dizziness she is requesting to go home son also would like to bring her home today if at all possible. She ambulated well with physical therapy and no other concerns Objective Data Objective Data Vital Signs: Vital Signs Temp Pulse Resp BP Pulse Ox O2 Del Method O2 Flow Rate 97.5 F L 66 18 121/53 H 100 Room Air 2 11/19/22 08:29 11/19/22 08:29 11/19/22 08:29 11/19/22 08:29 11/19/22 08:29 11/19/22 08:35 11/19/22 03:00 Oxygen Flow Rate (L/min) 2 Oxygen Delivery Method Room Air Weight: 115 lb 8.356 oz Body Mass Index (BMI) 19.2 Intake & Output: Intake and Output for Last 24 Hours 11/17/22 11/18/22 11/19/22 23:59 23:59 23:59 Intake Total 1682 / 1682 50 / 50 Balance 1682 / 1682 50 / 50 Lab / Micro Data Result Diagrams: 11/19/22 02:25 11/19/22 02:25 Labs: Laboratory Results - last 24 hr 11/18/22 15:03: POC Glucose 121 H 11/18/22 17:11: POC Glucose 166 H 11/18/22 20:00: Troponin I High Sens 5 11/18/22 21:37: POC Glucose 149 H 11/18/22 22:20: Troponin I High Sens 4 11/19/22 02:25: WBC 8.2, RBC 3.57 L, Hgb 10.3 L, Hct 33.1 L, MCV 92.7, MCH 28.9,MCHC 31.1 L, RDW Std Deviation 45.1 H, RDW Coeff of Floyd 13.2, Plt Count 153, MPV11.2 11/19/22 02:25: Sodium 139, Potassium 5.1, Chloride 104, Carbon Dioxide 26.0, Anion Gap 9, BUN 19 H, Creatinine 1.39 H, Estim Creat Clear Calc 28.93, Est GFR (MDRD) Af Amer 48 L, Est GFR (MDRD) Non-Af 39 L, BUN/Creatinine Ratio 13.7, Glucose 136 H, Calcium 9.0 11/19/22 02:25: Troponin I High Sens 5 11/19/22 04:01: POC Glucose 122 H Micro: Microbiology 10/31/22 07:36 Swab (Method) Nasal Screen MRSA/MSSA - Final Radiography Diagnostic Testing: Radiology Impression Knee X-Ray 11/18/22 14:00 IMPRESSION: Status post total knee replacement. There is good alignment. Postoperative soft tissue changes. Electronically Signed: Som Artis MD at 15:26 EST , Physical Exam Const alert, oriented x3 and no apparent distress Extremity Extremity Narrative: Left knee dressings clean dry and intact mild drainage on inferior dressing but still sealed compartments soft neurovascular intact EHL tibialis anterior gastrocsoleus intact sensation light touch palpable pedal pulse Assessment & Plan Assessment/Plan (1) S/P total knee arthroplasty: PLAN: Plan Postop day #1 left total knee arthroplasty patient is doing well pain controlledwishes to be discharged home set up for outpatient physical therapy on Thursday. DC planning home 11/19/22 1146 <Electronically signed by Hugo Esquivel DO> Cosigner Signature (if applicable): CC: ~ Signed ADDENDUM by Dr. Hugo Esquivel DO on 11/19/22 at 1147 Addendum Patient had mild chest pain yesterday she did have cardiac enzymes which were negative it is resolved today 11/19/22 1147<Electronically signed by Hugo Esquivel DO> Cosigner Signature (if applicable): cc: ~* Signed [facility] Work Phone: 1(989) 653-580601-24-[address] [facility] 11-18-2022 History and physical note Author Dr. Esquivel [facility] November 18, 2022 11:16am Note Date/Time November 18, 2022 1 1:16am [facility] Medical Records Department [address] [place] [address] History & Physical Exam 11/18/22 1116 MR#: [id number] Acct: [id number] Name: HILARY MENA Rep #:[id number] : 1945 77 From: Hugo Esquivel DO PCP: JOE Espinal Status:ADM IN Location: [facility] AC-TB A-2 History and Physical Date of Admission: 11/18/22 [facility] [address] [place] [address] OFFICE VISIT Date of Service:? 09/15/22 MR#: [id number] Acct: [id number] Name:HILARY WISDOM Rep #: [id number] : 1945 ? ? Provider: Dr. Hugo Esquivel, DO Age/Sex:? 77/F ? ? [place] [facility] Status: Signed Intake Intake Visit Reasons:?BL Knees Chief Complaint: bilateral knee pain Allergies No Known Allergies Allergy (Unverified 07/30/22 14:17) Medications metformin 500 mg tablet 500 mg PO DAILY 07/25/22 [History Confirmed 09/15/22] valsartan 40 mg tablet 40 mg PO BID 07/30/22 [History Confirmed 09/15/22] PFSH Medical History? Hypertension Weight loss HPI BL Knees Details: Parts of this documentation were recorded by a scribe, this documentation accurately reflects the service provided and the decisions made by me, Dr. Hugo Esquivel, DO 09/15/22 1015. HILARY VELAZQUEZ is a 77 year old F here today for F/U on?bilateral knee pain. She speaks no [place] and her son is serving as her automated equipment engineer technician and giving her history. She did complete PT for her BL knee pain which was helpful with the pain. Left knee is worse than the right knee. Denies any past surgery of the knees. [facility]. She has increased knee pain over the anteriorknees. She did have some pain relief from the Meloxicam but she was unable to keep taking this d/t her kidney function. She does use a cane for ambulation. Denies any hx of vascular or heart issues in the past. Denies any hx of ulcers or infection of the legs/feet. Ortho Exam General General: Yes no acute distress Neurologic: Yes alert and Yes oriented x3 Psychologic: Yes reasonable and appropriate Right Knee Patella Translation: 1 Left Knee Skin/Wound: Yes CDI, No ecchymosis, No erythema and No swelling Homans Sign: No Knee ROM: No ROM-Extension -20 to 0 (lacking 40) and No ROM-Flexion 0-140 (100) Examination: Yes med jt line tenderness Stability: NML: Anterior Drawer, NML: Posterior Drawer, NML: Valgus 30 and NML: Varus 30 Apprehension with Lateral Translation: No Patella Translation: 1 Patella Grind: Yes KNEE: 1/4 dorsalis pedis and 1/4 posterior tibial loss of hair from mid leg down 1inch scar lateral to patellar tendon no joint effusion Supplemental Info 07/30/2022 x-ray left knee: advanced medial knee arthrosis [id number] subchondral cystic changes joint space collapse and bone spurs moderate patellofemoral arthrosis 07/30/2022 x-ray right knee: Moderate to severe knee arthrosis worse medial compartment Coding Level of Care Code Off vis,est,level 3 Diagnoses Bilateral primary osteoarthritis of knee? M17.0 Assessment and Plan Assessment and Plan (1) Bilateral primary osteoarthritis of knee: ?Status:?Acute Plan Obtained X-rays of patient's left and right knee. Personally reviewed x-rays. There is no obvious fracture, dislocation, or lucency noted. Patient educated that she has osteoarthritis of the bilateral knees. Treatment options for arthritis of the knees are do nothing or bracing or steroid injection or viscosupplementation or TKA.?Risks, benefits and alternatives of surgery reviewed including but not limited to bleeding, infection, nerve, artery and/or tissue damage, fracture, VTE, mechanical feel of the knee, continued pain, stiffness and expected post-operative course. Increased risk to foot drop d/t her flexion contracture. Encouraged to gain as much ROM prior to surgery. Will need to check her A1C to assure this is ok and she will need medial clearance. She would need a CT scan prior to the surgery. Her son is translating for the patient as she doesn't speak [place] Islander. Recommended 2 night stay after surgery if this is approved by insurance. She will need to establish with a PCP so she can get medial clearance. Lisbet King CNP is listed on her insurance card as her PCP. Encouraged them to reach out to schedule a visit. She wishes to proceed with left TKA. She will have the IOVERA treatment if this is covered. Follow up 2 weeks post op or sooner if pain, swelling, numbness or associated symptoms, or concerns develop.? All questions answered. Patient in agreement of plan. plan for full admit November 04 2022.? She is 77 years old does have a communication barrier and is diabetic. 09/15/22 1617 <Electronically signed by Hugo Esquivel DO> Date Hugo Esquivel DO Cosigner Signature: Date (if applicable) ? CC: ? ~I have examined the patient and the H&P has been reviewed. There are no clinical changes since date of exam. 11/18/22 1116 <Electronically signed by Hugo Esquivel DO> Cosigner Signature (if applicable): CC: JOE King; Dr. Hugo Esquivel, ~ Signed [facility] Work Phone: evaluation note* Diagnosis Onset Date Resolution Status Bilateral primary osteoarthritis of knee acute Bilateral primary osteoarthritis of knee acute [facility] Work Phone: Evaluation note* Diagnosis Onset Date Resolution Status Bilateral primary osteoarthritis of knee acute Bilateral primary osteoarthritis of knee acute Bilateral primary osteoarthritis of knee acute [facility] Work Phone: Evaluation note* Diagnosis Onset Date Resolution Status Bilateral primary osteoarthritis of knee acute Bilateral primary osteoarthritis of knee acute Bilateral primary osteoarthritis of knee acute Osteoarthritis of left knee acute Osteoarthritis of left knee acute S/P total knee arthroplasty acute HTN (hypertension) [facility] Work Phone: Evaluation note* Diagnosis Onset Date Resolution Status Bilateral primary osteoarthritis of knee acute Bilateral primary osteoarthritis of knee acute Osteoarthritis of left knee acute Osteoarthritis of left knee acute S/P total knee arthroplasty acute HTN (hypertension) [facility] Work Phone: Evaluation note* Diagnosis Onset Date Resolution Status Bilateral primary osteoarthritis of knee acute Osteoarthritis of left knee resolved S/P total knee arthroplasty acute HTN (hypertension) chronic Osteoarthritis of left knee resolved Orthopedic aftercare acute Right knee DJD acute [facility] Work Phone: evaluation note* Diagnosis Onset Date Resolution Status Osteoarthritis of left knee resolved S/P total knee arthroplasty acute HTN (hypertension) chronic Osteoarthritis of left knee resolved Orthopedic aftercare acute Right knee DJD acute [facility] Work Phone: Evaluation note* Diagnosis Onset Date Resolution Status Osteoarthritis of left knee resolved S/P total knee arthroplasty acute HTN (hypertension) chronic Osteoarthritis of left knee resolved Orthopedic aftercare acute Right knee DJD acute Right knee DJD acute Acute renal insufficiency ac tejon Elevated serum creatinine ac tejon S/P total knee arthroplasty acute [facility] Work Phone: Evaluation noteNo assessment information available [facility] Work Phone: evaluation note* Diagnosis Onset Date Resolution Status Admit Date Cardiomyopathy acute May 9:59am HTN (hypertension) chronic May 31, 2025 9:59am [facility] Work Phone: Reason for referral (narrative)No reason for referral [facility] Work Phone: Chief Complaint and Reason for Visit Chief Complaint B/L KNEE PAIN bilateral knee Xray DELL KN PAIN/RX HERE Reason for Visit Bilateral primary os teoarthritis of knee Bilateral primary osteoarthritis of knee Chief Complaint B/L KNEE PAIN bilateral knee Xray DELL KN PAIN/RX HERE BL Knees BILAT KNEE OA, TEMPLATING FOR LT TKA Reason for Visit Bilateral primary os teoarthritis of knee Bilateral primary osteoarthritis of knee Bilateral primary osteoarthritis of knee Chief Complaint B/L KNEE PAIN bilateral knee Xray DELL KN PAIN/RX HERE BL Knees BILAT KNEE OA, TEMPLATING FOR LT TKA left knee LEFT TOTAL KNEE ROBOTIC LEFT TOTAL KNEE ROBOTIC LEFT TOTAL KNEE ROBOTIC LEFT TOTAL KNEE ROBOTIC LEFT TOTAL KNEE ROBOTIC Reason for Visit Bilateral primary os teoarthritis of knee Bilateral primary osteoarthritis of knee Bilateral primary osteoarthritis of knee Osteoarthritis of left knee Osteoarthritis of left knee S/P total knee arthroplasty HTN (hypertension) Chief Complaint bilateral knee Xray EDLL KN PAIN/RX HERE BL Knees BILAT KNEE OA, TEMPLATING FOR LT TKA left knee LEFT TOTAL KNEE ROBOTIC LEFT TOTAL KNEE ROBOTIC LEFT TOTAL KNEE ROBOTIC LEFT TOTAL KNEE ROBOTIC LEFT TOTAL KNEE ROBOTIC TKA / RX HERE Reason for Visit Bilateral primary os teoarthritis of knee Bilateral primary osteoarthritis of knee Osteoarthritis of left knee Osteoarthritis of left knee S/P total knee arthroplasty HTN (hypertension) Chief Complaint BL Knees BILAT KNEE OA, TEMPLATING FOR LT TKA PREOP left knee LEFT TOTAL KNEE ROBOTIC LEFT TOTAL KNEE ROBOTIC LEFT TOTAL KNEE ROBOTIC CP LEFT TOTAL KNEE ROBOTIC LEFT TOTAL KNEE ROBOTIC LEFT KNEE LEFT KNEE Room 2 TKA / RX HERE Reason for Visit Bilateral primary os teoarthritis of knee Osteoarthritis of left knee S/P total knee arthroplasty HTN (hypertension) Osteoarthritis of left knee Orthopedic aftercare Right knee DJD Chief Complaint BILAT KNEE OA, TEMPL ATING FOR LT TKA PREOP left knee LEFT TOTAL KNEE ROBOTIC LEFT TOTAL KNEE ROBOTIC LEFT TOTAL KNEE ROBOTIC CP LEFT TOTAL KNEE ROBOTIC LEFT TOTAL KNEE ROBOTIC LEFT KNEE LEFT KNEE Room 2 TKA / RX HERE Reason for Visit Osteoarthritis of le ft knee S/P total knee arthroplasty HTN (hypertension) Osteoarthritis of left knee Orthopedic aftercare Right knee DJD Chief Complaint PREOP left knee LEFT TOTAL KNEE ROBOTIC LEFT TOTAL KNEE ROBOTIC LEFT TOTAL KNEE ROBOTIC CP LEFT TOTAL KNEE ROBOTIC LEFT TOTAL KNEE ROBOTIC LEFT KNEE LEFT KNEE Room 2 TKA / RX HERE right knee tka RT TOTAL KNEE W NACHO/ ADD LABS RT TOTAL KNEE W NACHO/ ADD LABS RT TOTAL KNEE W NACHO/ ADD LABS RT TOTAL KNEE W NACHO/ ADD LABS RT TOTAL KNEE W NACHO/ ADD LABS Reason for Visit Osteoarthritis of le ft knee S/P total knee arthroplasty HTN (hypertension) Osteoarthritis of left knee Orthopedic aftercare Right knee DJD Right knee DJD Acute renal insufficiency Elevated serum creatinine S/P total knee arthroplasty Chief Complaint Admit Date 5 M FU May 31, 2025 9:5 9am Reason for Visit Admit Date Cardiomyopathy May 31, 2025 9:5 9am HTN (hypertension) May 31, 2025 9:5 9am Chief Complaint Admit Date 5 M FU May 31, 2025 9:5 9am INT LAB ORDERS May 31, 2025 11: 02am Reason for Visit Admit Date Cardiomyopathy May 31, 2025 9:5 9am Chest pain May 31, 2025 9:5 9am FAYE (dyspnea on exertion) May 31 9:59am HTN (hypertension) May 31, 2025 9:5 9am Chief Complaint Admit Date 5 M FU May 31, 2025 9:5 9am INT LAB ORDERS May 31, 2025 11: 02am CHEST PAIN July 21, 2025 12:50pm Chief Complaint Admit Date 5 M FU May 31, 2025 9:5 9am INT LAB ORDERS May 31, 2025 11: 02am CHEST PAIN July 21, 2025 12:50pm 6 WK FU July 28, 2025 10 :14am Reason for Visit Admit Date Cardiomyopathy May 31, 2025 9:5 9am Chest pain May 31, 2025 9:5 9am FAYE (dyspnea on exertion) May 31 9:59am HTN (hypertension) May 31, 2025 9:5 9am Cardiomyopathy July 28, 2025 10 :14am Chest pain July 28, 2025 10 :14am FAYE (dyspnea on exertion) July 28, 025 10:14am Hyperlipidemia July 28, 2025 10 :14am HTN (hypertension) July 28, 2025 10 :14am Advance Directives No Advanced Directives Records Found Advance Directive Response Recorded Date/ Time Living Will No October 21, 2 022 3:14pm Power of Vessel Crew Member No October 21, 2022 3:14pm Advance Directive Response Recorded Date/ Time Living Will No November 18 4:37pm Power of Vessel Crew Member No November 18, 2022 4:37pm Advance Directive Response Recorded Date/ Time Living Will No November 18 5:37pm Power of Vessel Crew Member No November 18, 2022 5:37pm Advance Directive Response Recorded Date/ Time Living Will No February 17, 2023 4:20pm Power of Vessel Crew Member No February 17 4:20pm Advance Directive Response Recorded Date/ Time Living Will No February 17, 2023 3:20pm Power of Vessel Crew Member No February 17 3:20pm Summary Purpose Family History No Family History Records FoundNo Family History Records Found Additional Source Comments Goals (unrecognized section and content) Goals may be documented in a n alternate sectionGoals may be documented in an alternate sectionGoals may be documented in an alternate sectionGoals may be documented in an alternate sectionGoals may be documented in an alternate sectionGoals may be documented in an alternate sectionGoals may be documented in an alternate section Care Teams (unrecognized sec tion and content) Team Status: Active Member Role Status Dates Karina Jones DO Primary Care Provider Active Team Status: Inactive Member Role Status Dates Dr. Hugo Esquivel DO Attending Provider Active Renee ROTHMAN PA Primary Care Provider, Referring Pr ovider Active Team Status: Inactive Member Role Status Dates Renee ROTHMAN PA Referring Provider Active Umberto ROTHMAN, PA Attending Provider Active Lisbet King SWITCH ENGINEER, SWITCH ENGINEER-C Primary Care Provider Active Team Status: Active Member Role Status Dates Dr. Hugo Esquivel DO Admit Provider, Attending Provider, Referring Provider, Other Provider Active Lisbet King SWITCH ENGINEER, SWITCH ENGINEER-C Primary Care Provider Active Team Status: Active Member Role Status Dates Dr. Hugo Esquivel DO Admit Provider, Attending Provider, Referring Provider, Other Provider Active Lisbet King SWITCH ENGINEER, SWITCH ENGINEER-C Primary Care Provider Active Dr. Johann Cannon MD Other Provider Active Team Status: Active Member Role Status Dates Dr. uHgo Esquivel DO Admit Provider, Other Provider Active Lisbet King SWITCH ENGINEER, SWITCH ENGINEER-C Primary Care Provider Active Dr. Johann Cannon MD Attending Provider, Other Provi veda Active Team Status: Active Member Role Status Dates Dr. Hugo Esquivel DO Admit Provider, Referring Provider, Other Provider Active Lisbet King SWITCH ENGINEER, SWITCH ENGINEER-C Primary Care Provider Active Dr. Johann Cannon MD Other Provider Active Dr. Lindsey Mccullough MD Attending Provider Active Team Status: Inactive Member Role Status Dates Lisbet King SWITCH ENGINEER, SWITCH ENGINEER-C Primary Care Provider, Referring Provider Active Dr. Hugo Esquivel DO Attending Provider Active Team Status: Active Member Role Status Dates Lisbet King SWITCH ENGINEER, SWITCH ENGINEER-C Primary Care Provider Active Dr. Gerald Diaz MD Attending Provider Activ e Dr. Hugo Esquivel DO Referring Provider Active Team Status: Active Member Role Status Dates Lisbet King SWITCH ENGINEER, SWITCH ENGINEER-C Primary Care Provider Active Dr. Dylan Jason MD Attending Provider Active Dr. Lindsey Mccullough MD Referring Provider Active Team Status: Inactive Member Role Status Dates Lisbet King SWITCH ENGINEER, SWITCH ENGINEER-C Primary Care Provider Active Dr. Dylan Jason MD Attending Provider Active Team Status: Inactive Member Role Status Dates Dr. Hugo Esquivel DO Admit Provider, Attending Provider, Referring Provider Active Lisbet King SWITCH ENGINEER, SWITCH ENGINEER-C Primary Care Provider Active Dr. Johann Cannon MD Other Provider Active Team Status: Active Member Role Status Dates Dr. Hugo Esquivel DO Attending Provider, Referring Provider Active Lisbet King SWITCH ENGINEER, SWITCH ENGINEER-C Primary Care Provider Active Team Status: Inactive Member Role Status Dates Renee ROTHMAN PA Primary Care Provider Active Dr. Hugo Esquivel DO Attending Provider, Referring Provider Active Team Status: Inactive Member Role Status Dates Lisbet King SWITCH ENGINEER, SWITCH ENGINEER-C Primary Care Provider Active Karina Jones DO Attending Provider Active Team Status: Inactive Member Role Status Dates Karina Jones DO Primary Care Provi veda, Attending Provider, Referring Provider Active Team Status: Active Member Role Status Dates Lisbet King SWITCH ENGINEER, SWITCH ENGINEER-C Primary Care Provider Active Team Status: Inactive Member Role Status Dates Kishor Hughes PA, PA Attending Provider Active Team Status: Inactive Member Role Status Dates Renee ROTHMAN PA Attending Provider Active Team Status: Inactive Member Role Status Dates Dr. Dylan Jason MD Attending Provider Active Team Status: Active Member Role Status Dates Dr. Hugo Esquivel DO Admit Provider, Referring Provider, Other Provider Active Lisbet King SWITCH ENGINEER, SWITCH ENGINEER-C Primary Care Provider Active Dr. Johann Cannon MD Attending Provider, Other Provi veda Active Team Status: Inactive Member Role Status Dates Renee ROTHMAN PA Attending Provider, Referring Provi veda Active No Primary Care Physician Primary Care Provider Active Team Status: Inactive Member Role Status Dates Renee ROTHMAN PA Primary Care Provide r, Attending Provider, Referring Provider Active Team Status: Active Member Role Status Dates Lisbet King SWITCH ENGINEER, SWITCH ENGINEER-C Primary Care Provider Active Karina Jones DO Attending Provider Active Team Status: Inactive Member Role Status Dates Dr. Hugo Esquivel DO Attending Provider, Referring Provider Active Lisbet King SWITCH ENGINEER, SWITCH ENGINEER-C Primary Care Provider Active Team Status: Active Member Role Status Dates Karina Jones DO Primary Care Provi veda, Attending Provider, Referring Provider Active Team Status: Inactive Member Role Status Dates Karina Jones DO Primary Care Provider, Referring Provider Active Umberto ROTHMAN PA Attending Provider Active Team Status: Active Member Role Status Dates Dr. Hugo Esquivel DO Attending Provid er, Referring Provider, Other Provider Active Karina Jones DO Primary Care Provider Active Dr. Tone Ramos MD Other Provider Active Team Status: Active Member Role Status Dates Dr. Hugo Esquivel DO Admit Provider, Attending Provider, Referring Provider, Other Provider Active Karina Jones DO Primary Care Provider Active Dr. Tone Ramos MD Other Provider Active Dr. Mitul Christian MD Other Provider Active Team Status: Active Member Role Status Dates Dr. Hugo Esquivel DO Admit Provider, Referring Provider, Other Provider Active Karina Jones DO Primary Care Provider Active Dr. Tone Ramos MD Other Provider Active Dr. Mitul Christian MD Attending Provider, Other Provider Active Team Status: Inactive Member Role Status Dates Dr. Hugo Esquivel DO Admit Provider, Attending Provider, Referring Provider Active Karina Jones DO Primary Care Provider Active Dr. Tone Ramos MD Other Provider Active Dr. Mitul Christian MD Other Provider Active Team Status: Active Member Role Status Dates Karina Jones DO Primary Care Provider Active Dr. Hugo Esquivel DO Attending Provider, Referring Provider Active Team Status: Inactive Member Role Status Dates Karina Jones DO Primary Care Provider Active Dr. Hugo Esquivel DO Attending Provider, Referring Provider Active Team Status: Inactive Member Role Status Dates Karina Jones DO Primary Care Provider, Attending Provider Active Team Status: Active Member Role/Relationship Status Dates Hallie Eli MD Primary Care Provider Active Team Status: Inactive Member Role/Relationship Status Dates Hallie Eli MD Primary Care Provider Active St art: May 31, 2025 End: May 31, 2025 Hallie Eli MD Referring Provider Active Start : May 31, 2025 End: May 31, 2025 Tejal Nair PA, PA Attending Provider Active Start: May 31, 2025 End: May 31, 2025 Team Status: Inactive Member Role/Relationship Status Dates Hallie Eli MD Primary Care Provider Active St art: May 31, 2025 End: May 31, 2025 Tejal ROTHMAN, PA Attending Provider Active Start: May 31, 2025 End: May 31, 2025 Tejal Nair PA, PA Referring Provider Active Start: May 31, 2025 End: May 31, 2025 Team Status: Active Member Role/Relationship Status Kristopher Eli MD Primary care physician Active Team Status: Inactive Member Role/Relationship Status Kristopher Eli MD Primary care physician Active S tart: May 31, 2025 End: May 31, 2025 Hallie Eli MD Referring Provider Active Start : May 31, 2025 End: May 31, 2025 Tejal ROTHMAN PA Attending physician Active Start: May 31, 2025 End: May 31, 2025 Team Status: Inactive Member Role/Relationship Status Kristopher Eli MD Primary care physician Active S tart: May 31, 2025 End: May 31, 2025 Tejal ROTHMAN PA Attending physician Active Start: May 31, 2025 End: May 31, 2025 Tejal ROTHMAN PA Referring Provider Active Start: May 31, 2025 End: May 31, 2025 Team Status: Inactive Member Role/Relationship Status Kristopher Eli MD Primary care physician Active S tart: July 21, 2025 End: July 21, 2025 Tejal ROTHMAN PA Attending physician Active Start: July 21, 2025 End: July 21, 2025 Tejal ROTHMAN PA Referring Provider Active Start: July 21, 2025 End: July 21, 2025 Team Status: Active Member Role/Relationship Status Kristopher Eli MD Primary care physician Active S tart: July 21, 2025 Dr. Dylan Jason MD Attending physician Active Start: July 21, 2025 Team Status: Inactive Member Role/Relationship Status Kristopher Eli MD Primary care physician Active S tart: July 28, 2025 End: July 28, 2025 Hallie Eli MD Referring Provider Active Start : July 28, 2025 End: July 28, 2025 Tejal ROTHMAN PA Attending physician Active Start: July 28, 2025 End: July 28, 2025 INFORMATION SOURCE (unrecogn ized section and content) DATE CREATED AUTHOR 08/09/2025 [facility] DATE CREATED AUTHOR AUTHOR'S ORGANIZ ATION 09/02/2025 [facility] FOR RECORDS PERTAINING TO PATIENTS WHO ARE OR HAVE BEEN ENROLLED IN A CHEMICAL DEPENDENCY/SUBSTANCEABUSE PROGRAM, SOME INFORMATION MAY BE OMITTED. This clinical summary was aggregated from multiple sources. Caution should be exercised in using it in the provision of clinical care. This summary normalizes information from multiple sources, and as a consequence, information in this document may materially change the coding, format and clinical context of patient data. In addition, data may be omitted in some cases. CLINICAL DECISIONS SHOULD BE BASED ON THE PRIMARY CLINICAL RECORDS. [facility]. provides no warranty or guarantee of the accuracy or completeness of information in this document.
--- NOTE | 2025-09-11 10:03 | STRESSREP_ITS ---
Stress Test Report Exercise myocardial perfusion stress test. 80-year-old female with a history of 148/82. Stress protocol: Resting EKG demonstrates normal sinus rhythm with a rate of 67 bpm resting blood pressure is 148/82 mmHg. The patient exercised according to the regular Nilesh protocol for a total duration of 3 mins and 15 sec attaining a maximum heart rate of 169 bpm which was 119% of maximum predicted heart rate; the maximum workload was 5 metabolic equivalents. At rest there were no ST or T wave changes noted to suggest ischemia and at peak exercise upsloping ST changes only were noted which did not meet the criteria for ischemia. The patient however did develop a rate dependent bundle branch block with a left bundle branch block variety causing EKG changes. No clinical angina was noted the test was terminated due to the target heart rate being achieved/fatigue. The peak blood pressure was 172/80 mmHg. Rate-pressure product was 20,200. Myocardial perfusion protocol. 11.5 mCi of technetium 99m sestamibi was injected at rest. The patient exercised according to regular Nilesh protocol for total duration of 3 minutes and 15- second and at peak exercise 33.1 mCi of technetium 99m sestamibi was injected stress images were obtained stress and rest images were reconstructed in comparing the short axis vertical long and horizontal long axis. Gated images were also obtained. Perfusion SPECT analysis: Review of the stress images demonstrate normal uptake of tracer noted in all areas of the myocardium. The resting images similarly demonstrate normal uptake of tracer noted in all areas of the myocardium. No areas of reversibility are noted to suggest ischemia no previous infarct was noted. Gated SPECT analysis: The gated ejection fraction is 80% %. Conclusion: Normal exercise myocardial perfusion stress test at a low to moderate workload.
== END | disposition home or self-care (01) ==
LOC: CVS 06:09
PROVIDERS: PCP Family Medicine; Referring Provider Physician Assistant Medical; Visit Provider Physician Assistant Medical
DX: R07.9 Chest pain, unspecified (principal); R06.09 Other forms of dyspnea; I10 Essential (primary) hypertension
CPT/HCPCS: 78452; 93017; A9500; A4216